=== PATIENT | male | born 1975 | race African-American/Black ===

== ENCOUNTER 2018-11-07 14:20 | Emergency (ER) | payer MEDICARE, MEDICAID ==
[~2018-11-07] VITALS: Ht 193 cm; Wt 108.9 kg
[~2018-11-07 14:20] MED LIST: FURO1TAB33 PO; NAP500T PO; NITR0.2D3 TD; [UNRECOGNIZED DRUG - CODE] SC
[2018-11-07] MEDS ORDERED: SODIUM CHLORIDE 0.9% 1,000 ML IV ONE (14:30)
[2018-11-07] MEDS ORDERED: MORPHINE SULFATE 4 MG/ML SYR/VIAL IV ONE (14:30)
[2018-11-07] MEDS ORDERED: ONDANSETRON HCL 4 MG/2 ML VIAL IV ONE (14:30)
[2018-11-07 15:18] LABS: Basophils # (auto) 0.1 uL; Basophils % (auto) 0.6 % (0.0-2.0); Eosinophils # (auto) 0.2 uL; Eosinophils % (auto) 2.1 % (0.0-7.0); Hematocrit 41.7 % (41.0-53.0); Hemoglobin 13.8 g/dL (13.5-17.5); Lymphocytes # (auto) 2.2 uL; Mean Corpuscular Hemoglobin 28.7 pg (28.0-32.0); Mean Corpuscular Volume 87.1 fL (80.0-100.0); Monocytes # (auto) 0.6 uL; Monocytes % (auto) 5.5 % (0.0-12.0); Neutrophils # (auto) 7.4 uL; Neutrophils % (auto) 70.8 % (37.0-80.0); Nucleated Red Blood Cells % 0.1 %; Platelet Count (auto) 198 10^3/uL (140-450); Red Blood Cells 4.79 10^6/uL (4.5-5.90); Red Cell Distribution Width 16.2 % (11.8-14.3); White Blood Cell 10.5 10^3/uL (4.4-10.8)
[2018-11-07 15:20] LABS: Urine Bacteria NONE SEEN /hpf (None Seen); Urine Blood Negative /uL (Negative); Urine Mucus FEW (None Seen); Urine Specific Gravity 1.025 (1.001-1.035); Urine WBC 1 /hpf (0 - 3)
[2018-11-07 15:30] LABS: Albumin 3.2 g/dL (3.4-5.0); Anion Gap 6 (5-15); Blood Urea Nitrogen 14 mg/dL (7-18); Calcium 8.5 mg/dL (8.5-10.1); Carbon Dioxide 25 mmol/L (21-32); Chloride 112 mmol/L (98-107); Glucose 83 mg/dL (74-106); Potassium 3.9 mmol/L (3.5-5.1); Sodium 143 mmol/L (136-145)
[2018-11-07 15:32] LABS: INR 1.01 (0.9-1.15); Partial Thromboplastin Time 20.8 sec (23.64-32.05)
[2018-11-07 15:33] LABS: Alanine Aminotransferase 23 U/L (16-61); Alkaline Phosphatase 127 U/L (45-117); Aspartate Aminotransferase 20 U/L (15-37); BUN/Creatinine Ratio 11.8; Bilirubin, Total 0.1 mg/dL (0.2-1.0); GFR African American 85 mL/min; GFR Non-African American 70 mL/min; Total Protein 7.7 g/dL (6.4-8.2)
[2018-11-07 16:46] VITALS: BP 129/79
== END 2018-11-07 17:02 | disposition home or self-care (01) ==
LOC: EDBD 14:20 → ER 14:32
DX: R07.89 Other chest pain (principal); E11.22 Type 2 diabetes mellitus with diabetic chronic kidney disease; I13.0 Hypertensive heart and chronic kidney disease with heart failure and stage 1 through stage 4 chronic kidney disease, or unspecified chronic kidney disease; N18.9 Chronic kidney disease, unspecified; I50.89 Other heart failure; R42 Dizziness and giddiness; E78.5 Hyperlipidemia, unspecified; F17.210 Nicotine dependence, cigarettes, uncomplicated; Z86.73 Personal history of transient ischemic attack (TIA), and cerebral infarction without residual deficits; Z88.0 Allergy status to penicillin; Z88.6 Allergy status to analgesic agent
CPT/HCPCS: 36415; 71045; 80053; 81001; 83880; 84484; 85025; 85610; 85730; 93005; 96361; 96374; 96375; 99284; J2270; J2405; J7030

== ENCOUNTER 2019-01-19 11:58 | Inpatient (IN) | payer MEDICARE, MEDICAID ==
[~2019-01-19] VITALS: Ht 193 cm; Wt 130.5 kg
[2019-01-19] MEDS ORDERED: PANTOPRAZOLE 40 MG TAB PO ONE (13:00)
[2019-01-19] MEDS ORDERED: MORPHINE SULF INJ 2 MG/ML SYRINGE 1ML IV ONE ×2 (13:30→16:45)
[2019-01-19] MEDS ORDERED: ONDANSETRON HCL 4 MG/2 ML VIAL IV ONE ×2 (13:30→16:45)
[2019-01-19 13:34] LABS: Basophils # (auto) 0 uL; Basophils % (auto) 0.2 % (0.0-2.0); Eosinophils # (auto) 0.2 uL; Eosinophils % (auto) 2.8 % (0.0-7.0); Hematocrit 40.5 % (41.0-53.0); Hemoglobin 13.2 g/dL (13.5-17.5); Lymphocytes # (auto) 0.7 uL; Lymphocytes % (auto) 10.7 % (10.0-50.0); Mean Corpuscular Hemoglobin 27.8 pg (28.0-32.0); Mean Corpuscular Hgb Conc. 32.6 g/dL (32.0-36.0); Mean Corpuscular Volume 85.2 fL (80.0-100.0); Monocytes # (auto) 0.5 uL; Monocytes % (auto) 7.9 % (0.0-12.0); Neutrophils # (auto) 4.9 uL; Neutrophils % (auto) 78.4 % (37.0-80.0); Nucleated Red Blood Cells % 0.1 %; Platelet Count (auto) 174 10^3/uL (140-450); Red Blood Cells 4.76 10^6/uL (4.5-5.90); Red Cell Distribution Width 14.3 % (11.8-14.3); White Blood Cell 6.3 10^3/uL (4.4-10.8)
[2019-01-19 13:47] LABS: INR 1.04 (0.9-1.15); Partial Thromboplastin Time 26.2 sec (23.64-32.05)
[2019-01-19 13:53] LABS: Albumin 3.3 g/dL (3.4-5.0); Anion Gap 4 (5-15); Blood Urea Nitrogen 16 mg/dL (7-18); Calcium 8.1 mg/dL (8.5-10.1); Carbon Dioxide 29 mmol/L (21-32); Chloride 107 mmol/L (98-107); Glucose 87 mg/dL (74-106); Sodium 140 mmol/L (136-145)
[2019-01-19 13:56] LABS: Alanine Aminotransferase 25 U/L (16-61); BUN/Creatinine Ratio 14.2; GFR African American 90 mL/min; GFR Non-African American 75 mL/min
[2019-01-19 14:10] LABS: Alkaline Phosphatase 109 U/L (45-117); Aspartate Aminotransferase 24 U/L (15-37); Bilirubin, Total 0.6 mg/dL (0.2-1.0); Total Protein 7.3 g/dL (6.4-8.2)
[2019-01-19] MEDS ORDERED: PHENYTOIN IV DILANTIN 1,000 MG in SODIUM CHL 0.9% 250 ML IV ONE (15:00)
[2019-01-19] MEDS ORDERED: LORazepam 2MG/ML-1ML VIAL IV ONE (17:45)
[2019-01-19] MEDS ORDERED: DEXTROSE (50%) 50ML SYRG IV PRN (17:45)
[2019-01-19] MEDS ORDERED: PROMETHAZINE HCL 25 MG/ML 1ML IV PRN (17:45)
[2019-01-19] MEDS ORDERED: traMADol HCL 50 MG TAB PO PRN (17:45)
[2019-01-19] MEDS ORDERED: TEMAZEPAM 15 MG CAP PO PRN (17:45)
[2019-01-19] MEDS ORDERED: MORPHINE SULF INJ 2 MG/ML SYRINGE 1ML IV PRN (17:45)
[2019-01-19] MEDS ORDERED: LORazepam 2MG/ML-1ML VIAL IV PRN (17:45)
[2019-01-19] MEDS: SODIUM CHLORIDE 0.9% 1,000 ML IV SCH (18:32)
[2019-01-19 18:44] LABS: CRP High Sensitivity 6.25 mg/dL (< 0.3)
[2019-01-19 19:17] LABS: Hematocrit 39.2 % (41.0-53.0); Hemoglobin 12.7 g/dL (13.5-17.5)
[2019-01-19 20:00] VITALS: BP 110/64
--- NOTE | 2019-01-19 20:00 | NUR ---
Telemetry admit from [facility] admitted to Telemetry unit after SBAR received. Patient oriented to Rebecca galdamez RN, unit, room, bed, and unit policies regarding patient care and visiting hours. Patient now on continuous telemetry monitoring, tele box # [id number] and telemetry reading on arrival to unit is SR 80. Patient weighed by bedscale and encouraged to call if they need something. All questions and concerns addressed, patient verbalized understanding.
--- NOTE | 2019-01-19 20:10 | NUR ---
REFUSING TO LET ME ASSESS HIS SKIN. PT STATED WHY ARE YOU ASKING TO MANY QUESTIONS. EXPLAINED TO THE PT THAT I WAS GETTING HIM ADMITTED ON THE FLOOR. PT VERBALIZED UNDERSTANDING. Addendum: 01/20/19 at 0328 by Rebecca Morgan RN PT REFUSING TO ANSWER QUESTIONS ABOUT HIS HOME MEDICATIONS. PT ALSO STATED THAT HE HAD NO EMERGENCY CONTACT.
[2019-01-19 21:00] VITALS: BP 137/82
[2019-01-19] MEDS: MORPHINE SULFATE 4 MG/ML SYR/VIAL IV PRN (21:09)
[2019-01-19] MEDS: PHENYTOIN SODIUM 100 MG CAP PO SCH (22:40)
[2019-01-19] MEDS: ATORVASTATIN 20 MG TAB PO SCH (22:40)
[2019-01-19] MEDS: PANTOPRAZOLE 40 MG TAB PO SCH (22:41)
[2019-01-19] MEDS: ACCU-CHEK COMFORT CURVE STRIP VI SCH (22:41)
[2019-01-19] MEDS: METOPROLOL TARTRATE 25 MG TAB PO SCH (22:41)
[2019-01-19] MEDS: InsuLIN REG 1unit/0.01ml Soln (100units/ml) SC SCH (22:41)
--- NOTE | 2019-01-20 00:32 | NUR ---
PT HAD PULLED HIS IV AND IT WAS ONLY HALF IN. PT REFUSING TO LET ME TAKE IT OUT. GOT THE VEIN FINDER AND TRIED TO SHOW IT TO HIM. PT STATED "I DONT WANT TO LOOK. YOU ALL NEED TO GET THE ULTRASOUND." TRIED TO EXPLAIN TO THE PT THIS IS A VEIN FINDER. PT SAID "GET YOUR REEL HOOKER." CALLED MANAGER INTERVENTIONAL HELEN AND TOLD HER.
[2019-01-20] MEDS: MORPHINE SULFATE 4 MG/ML SYR/VIAL IV PRN ×5 (01:00→21:44)
--- NOTE | 2019-01-20 01:00 | NUR ---
PT REFUSING TO HAVE BLOOD DRAWN.
--- NOTE | 2019-01-20 01:43 | NUR ---
PT CALLED INSURANCE SERVICE REPRESENTATIVE AND STATED HE WAS FEELING HE WAS GOING TO "GET A SEIZURE" GAVE THE PT ATIVAN. PT STATED THAT HE DID NOT GET HIS DILANTIN EARLIER. I EXPLAINED THAT I HAD GIVEN IT TO HIM EARLIER. PT STATED HE WANTED MY INSULATION APPLICATOR. TOLD CHARGE, DEREK DAVID. Addendum: 01/20/19 at 0148 by Rebecca Morgan RN PT WAS NOT SHAKING BUT KEPT SAYING HE WAS GOING TO HAVE A SEIZURE. HAD GIVEN ATIVAN. PT NEVER HAD ANY SHAKING TO HE NEVER LOSS AWARENESS WILL I WA IN THE ROOM.
[2019-01-20 04:30] VITALS: BP 124/71
[2019-01-20] MEDS: PHENYTOIN SODIUM 100 MG CAP PO SCH ×3 (05:07→21:48)
[2019-01-20] MEDS: InsuLIN REG 1unit/0.01ml Soln (100units/ml) SC SCH ×4 (05:11→22:00)
[2019-01-20] MEDS: ACCU-CHEK COMFORT CURVE STRIP VI SCH ×4 (05:11→22:23)
[2019-01-20] MEDS: SODIUM CHLORIDE 0.9% 1,000 ML IV SCH ×2 (07:02→20:22)
[2019-01-20 07:28] LABS: Hematocrit 38.4 % (41.0-53.0); Hemoglobin 12.8 g/dL (13.5-17.5)
--- NOTE | 2019-01-20 07:33 | NUR ---
Opening Shift Note Assumed care of patient, awake and alert. No S/S of distress/SOB or pain. For safety the bed is locked and in the lowest postion with 2 side rails up. Instructed on POC and to call for assist PRN, will continue to monitor for changes.
[2019-01-20 07:42] LABS: Cholesterol 189 mg/dL (< 200)
[2019-01-20 07:45] LABS: HDL Cholesterol 43 mg/dL (40-59); LDL Cholesterol 131 mg/dL (< 100); Triglycerides 84 mg/dL (< 150)
[2019-01-20 09:00] VITALS: BP 125/81
[2019-01-20] MEDS: PANTOPRAZOLE 40 MG TAB PO SCH ×2 (09:09→21:49)
[2019-01-20] MEDS: METOPROLOL TARTRATE 25 MG TAB PO SCH ×2 (09:10→22:00)
--- NOTE | 2019-01-20 09:30 | NUR ---
FALL PATIENT FOUND SITTING ON FLOOR IN CORNER OF BATHROOM. PATIENT STATES HE AMBULATED TO BATHROOM. ONCE IN BATHROOM, PATIENT STATES THAT HE WAS NOT ABLE TO GET OFF OF THE TOILET BECAUSE IT IS TOO LOW. STATES THAT HE ENDED UP ON THE FLOOR AND PULLED THE CALL LIGHT CORD. PATIENT DENIES ANY INJURIES. NO INJURIES NOTED UPON ASSESSMENT. PATIENT AMBULATED BACK TO THE BED. PATIENT PLACED IN BED, BED IN LOWEST POSITION, BED ALARM ON, CALL LIGHT IN REACH. COMMODE AT BEDSIDE, PATIENT STATES THAT HE WILL NOT USE THAT THING, IT'S TOO SMALL AND HE DOESN'T LIKE IT. RED SOCKS GIVEN TO PATIENT, PATIENT REFUSES TO WEAR THEM, STATES THEY ARE ITCHY. FALL BAND PLACED ON WRIST. PATIENT INSTRUCTED TO CALL FOR ASSISTANCE, PATIENT STATED THAT HE WILL TRY TO CALL BUT, IF HE WANTS TO GET UP THEN HE WILL. WILL CONTINUE TO MONITOR.
[2019-01-20] MEDS ORDERED: POTA-220 PO (10:10)
[2019-01-20] MEDS ORDERED: PHE100C PO (10:10)
[2019-01-20] MEDS ORDERED: FURO1TAB31 PO (10:10)
[2019-01-20] MEDS ORDERED: NIF10C PO (10:10)
--- NOTE | 2019-01-20 11:31 | NUR ---
DOCTOR RAHMAN AT BEDSIDE. ORDERS RECEIVED, WILL PLACE AND CARRY OUT.
[2019-01-20 11:57] LABS: Urine Bacteria NONE SEEN /hpf (None Seen); Urine Blood Negative /uL (Negative); Urine Hyaline Cast FEW /lpf (0 - 2); Urine Specific Gravity 1.023 (1.001-1.035); Urine WBC 18 /hpf (0 - 3)
[2019-01-20] MEDS ORDERED: HYOSCYAMINE SULF 0.125 MG ODT TAB PO PRN (12:00)
[2019-01-20 13:00] VITALS: BP 107/66
[2019-01-20 13:09] LABS: Alcohol, Urine < 3.0 mg/dL (0-5); Barbiturate Scree,Urine NEGATIVE (NEGATIVE); Benzodiazephine Screen, Urine NEGATIVE (NEGATIVE); Cannabinoid Screen, Urine NEGATIVE (NEGATIVE); Cocaine Screen, Urine NEGATIVE (NEGATIVE); Opiate Scree,Urine POSITIVE (NEGATIVE); Phencyclidine Screen, Urine NEGATIVE (NEGATIVE)
[2019-01-20 13:17] LABS: Amphetamine Screen, Urine NEGATIVE (NEGATIVE)
[2019-01-20] MEDS: APIXABAN 5 MG TAB PO SCH ×2 (13:50→21:47)
[2019-01-20 16:59] VITALS: BP 117/78
--- NOTE | 2019-01-20 19:00 | NUR ---
Report received from anna REED. POC reviewed.
--- NOTE | 2019-01-20 21:45 | NUR ---
pt very difficult pulling off tele monitor ,pulling off name band, incontinent of urine, reeducated pt on poc, pt non compliant with care, bed alarm intact call light within reach, medicated for pain as ordered, all questions and concerns addressed to pt
[2019-01-20] MEDS: QUEtiapine FUMARATE 100 MG TAB PO SCH (21:47)
[2019-01-20] MEDS: ATORVASTATIN 20 MG TAB PO SCH (21:49)
[2019-01-20 22:00] VITALS: BP 111/60
--- NOTE | 2019-01-20 23:06 | NUR ---
resting with eyes closed resp even and unlabored, bed alarm intact
[2019-01-21 05:30] VITALS: BP 121/58
[2019-01-21] MEDS: PHENYTOIN SODIUM 100 MG CAP PO SCH ×3 (05:36→19:57)
--- NOTE | 2019-01-21 05:42 | NUR ---
patient refused Dilantin. patient education on purpose of medication.
[2019-01-21] MEDS: InsuLIN REG 1unit/0.01ml Soln (100units/ml) SC SCH ×4 (05:49→20:02)
[2019-01-21] MEDS: ACCU-CHEK COMFORT CURVE STRIP VI SCH ×4 (05:51→20:02)
--- NOTE | 2019-01-21 06:51 | NUR ---
report given to am nurse poc reviewed
--- NOTE | 2019-01-21 07:32 | NUR ---
Opening Shift Note Assumed care of patient, pt asleep verbally awake and alert. No S/S of distress/SOB or pain. For safety the bed is locked and in the lowest position with 2 side rails up with bed alarm on. Instructed on POC and to call for assist PRN, will continue to monitor for changes.
[2019-01-21] MEDS: SODIUM CHLORIDE 0.9% 1,000 ML IV SCH ×2 (08:15→23:02)
[2019-01-21] MEDS: MORPHINE SULFATE 4 MG/ML SYR/VIAL IV PRN ×4 (08:15→20:49)
--- NOTE | 2019-01-21 08:31 | NUR ---
patient resting in bed communicated the want and need to go home so he can return to his schooling, he asked me to request this of md when rounding
[2019-01-21 09:00] VITALS: BP 137/84
--- NOTE | 2019-01-21 09:39 | NUR ---
pt refusing to wear tele monitor risk and benefits explained
[2019-01-21] MEDS: POTASSIUM CHL 20 Meq TABLET PO SCH (09:43)
[2019-01-21] MEDS: FUROSEMIDE 20 MG TAB PO SCH (09:43)
[2019-01-21] MEDS: PANTOPRAZOLE 40 MG TAB PO SCH ×2 (09:44→19:56)
[2019-01-21] MEDS: METOPROLOL TARTRATE 25 MG TAB PO SCH ×2 (09:44→19:57)
[2019-01-21] MEDS: APIXABAN 5 MG TAB PO SCH ×2 (09:44→19:55)
--- NOTE | 2019-01-21 09:49 | NUR ---
md hoang rounded on patient made pt aware of pending echo result possible discharge tomorrow, pt told md he may leave [facility] he doesn't want to stay, advised pt of risks and benefits of leaving pt stated he will think about it
[2019-01-21] MEDS ORDERED: APIXABAN 5 MG TAB PO SCH (10:00)
--- NOTE | 2019-01-21 10:23 | NUR ---
pt resting in bed appears to be sleeping
--- NOTE | 2019-01-21 10:32 | NUR ---
pt refusing iv fluids to be connected
--- NOTE | 2019-01-21 11:20 | NUR ---
pt deciding to stay till tomorrow, offered to reconnect tele box per pt "the doctor said aint nothing wrong with my heart so why monitor it" risks and benefits explained
[2019-01-21 12:55] VITALS: BP 132/81
[2019-01-21 17:00] VITALS: BP 123/73
--- NOTE | 2019-01-21 17:09 | NUR ---
ROUNDED ON PT HE STATED HE IS GOING TO LEAVE WHEN "MY SCIENTOLOGIST FRIENDS GET HERE" RISKS AND BENEFITS EXPLAINED
--- NOTE | 2019-01-21 19:30 | NUR ---
Opening Shift Note Assumed care of patient, awake and alert. No S/S of distress/SOB or pain. Insructed on POC and to callfor assist PRN, will continue to monitor for changes Q1hr and PRN. Fall, safety, and seizure precautions in place. Call light within reach.
[2019-01-21] MEDS: ATORVASTATIN 20 MG TAB PO SCH (19:55)
[2019-01-21] MEDS: QUEtiapine FUMARATE 100 MG TAB PO SCH (19:55)
--- NOTE | 2019-01-21 20:00 | NUR ---
IV LEAKING Upon flushing IV access to [facility], IV access was noted to be leaking. Offered to change dressing in an attempt to save IV access, patient refusing. Patient stated he's a hard stick and during dressing change, if IV access is lost, he would refuse to have another IV catheter inserted. Attempted to educate patient that MD has ordered IV fluids and with leaking IV access, patient may not receive total dose ordered for IV medications. Patient refusing education and refusing to have IV dressing changed or new IV access obtained. Will continue to monitor
--- NOTE | 2019-01-21 20:30 | NUR ---
REFUSE Entered room because I was informed by community pharmacist and secondary RN that patient is dressing himself in personal clothing and stating he's leaving. Entered room to find patient standing at bedside and dressing himself. Asked patient what was going on, patient stated "I'm leaving, you playing too much." Asked patient what he meant, patient upset because approximately 20 minutes earlier, patient was informed that PRN pain medication was not due. Patient stated "you lying, you said '30 minutes' 30 minutes ago, it's now 8:30, and you saying my pain medication still isn't due." Attempted to inform patient that last logged PRN pain medication was 1636 (see emar), and pain medication was ordered every 4hr, and won't be available to administer until 2036. Patient refused to verbalize understanding, stating "you lying, you playing too much, you're changing the times of my pain medicine." Offered to bring computer in room and show patient logged time of PRN pain medication, patient accepted, demanding "let me see it." Upon entering room with computer to show patient last documented time, patient stated "no, I don't want to see anything. I don't want you as a nurse, I want somebody else." Patient demanding to speak "with your quality assurance supervisor trim." Asked patient if he is requesting a different RN for the night, patient again stated "I don't want you, I want somebody else." medical translator made aware.
--- NOTE | 2019-01-21 20:47 | NUR ---
BLUEPRINT DEVELOPER butcherette at bedside
--- NOTE | 2019-01-21 21:20 | NUR ---
ENDORSED CARE Report given to Luna REED to continue care
--- NOTE | 2019-01-21 21:25 | NUR ---
RECEIVE IN BED IS ASLEEP
[2019-01-21 22:00] VITALS: BP 136/77
--- NOTE | 2019-01-22 01:00 | NUR ---
IS STILL ASLEEP FINISHING AND SHIPPING SUPERVISOR IS OFF
--- NOTE | 2019-01-22 04:00 | NUR ---
CONTINUE TO SLEEP IS BEING OBSERVED CLOSELY
[2019-01-22 05:00] VITALS: BP 145/76
[2019-01-22] MEDS: PHENYTOIN SODIUM 100 MG CAP PO SCH ×2 (05:35→14:00)
--- NOTE | 2019-01-22 05:35 | NUR ---
UP WALKING IN COLE REFUSE TELEMETRY STATES HE IS WAITING FOR HIS DOCTOR
[2019-01-22] MEDS: ACCU-CHEK COMFORT CURVE STRIP VI SCH ×2 (06:16→11:30)
[2019-01-22] MEDS: InsuLIN REG 1unit/0.01ml Soln (100units/ml) SC SCH ×2 (06:16→11:30)
--- NOTE | 2019-01-22 07:30 | NUR ---
Opening Shift Note Assumed care of patient, awake and alert. No S/S of distress/SOB or pain. Pt still refusing the need for telemetry. Bed is in the lowest position with 2x side rails up for safety. Call light is within reach and seizure precautions in place. Instructed on POC and to call for assist PRN, will continue to monitor for changes Q1hr and PRN.
[2019-01-22 08:00] VITALS: BP 138/79
[2019-01-22 08:59] VITALS: BP 98/41
--- NOTE | 2019-01-22 09:45 | NUR ---
IV removal to the R upper arm. IV DC'd with sterile technique, 22g catheter fully intact. Pressure dressing applied to site. Patient tolerated procedure well.
[2019-01-22] MEDS: POTASSIUM CHL 20 Meq TABLET PO SCH (09:47)
[2019-01-22] MEDS: FUROSEMIDE 20 MG TAB PO SCH (09:48)
[2019-01-22] MEDS: PANTOPRAZOLE 40 MG TAB PO SCH (09:48)
[2019-01-22] MEDS: APIXABAN 5 MG TAB PO SCH (09:49)
[2019-01-22] MEDS: METOPROLOL TARTRATE 25 MG TAB PO SCH ×2 (09:49→10:49)
[2019-01-22] MEDS: SODIUM CHLORIDE 0.9% 1,000 ML IV SCH (12:22)
--- NOTE | 2019-01-22 14:05 | NUR ---
Discharge instructions given as ordered. Encourage to follow up with PMD as instructed. All questions and concerns addressed. Patient verbalized understanding. Medication reconciliation form completed and copy given to patient. Telemetry unit returned to ICU. Patient ambulated off unit with all personal belongings. No distress noted at time of departure.
== END 2019-01-22 14:02 | disposition home or self-care (01) | DRG 206 ==
LOC: ER 11:58 → TELE 11:59 → TELE-WESTW 20:53
PROVIDERS: ADMIT Internal Medicine; ATTEND Internal Medicine
DX: M94.0 Chondrocostal junction syndrome [Tietze] (principal); I13.0 Hypertensive heart and chronic kidney disease with heart failure and stage 1 through stage 4 chronic kidney disease, or unspecified chronic kidney disease; I50.42 Chronic combined systolic (congestive) and diastolic (congestive) heart failure; K62.5 Hemorrhage of anus and rectum; K52.9 Noninfective gastroenteritis and colitis, unspecified; D57.1 Sickle-cell disease without crisis; N18.9 Chronic kidney disease, unspecified; E78.5 Hyperlipidemia, unspecified; F17.210 Nicotine dependence, cigarettes, uncomplicated; K44.9 Diaphragmatic hernia without obstruction or gangrene; I25.10 Atherosclerotic heart disease of native coronary artery without angina pectoris; F20.9 Schizophrenia, unspecified; E11.22 Type 2 diabetes mellitus with diabetic chronic kidney disease; E66.9 Obesity, unspecified; G40.909 Epilepsy, unspecified, not intractable, without status epilepticus; I25.2 Old myocardial infarction; Z82.49 Family history of ischemic heart disease and other diseases of the circulatory system; Z82.5 Family history of asthma and other chronic lower respiratory diseases; Z83.3 Family history of diabetes mellitus; Z86.711 Personal history of pulmonary embolism; Z86.73 Personal history of transient ischemic attack (TIA), and cerebral infarction without residual deficits; Z95.828 Presence of other vascular implants and grafts; Z86.718 Personal history of other venous thrombosis and embolism; Z88.6 Allergy status to analgesic agent; Z88.1 Allergy status to other antibiotic agents; Z88.8 Allergy status to other drugs, medicaments and biological substances
CPT/HCPCS: 36415; 71045; 74176; 80053; 80061; 80185; 80307; 81001; 82150; 82270; 82550; 82962; 83036; 83690; 83735; 84484; 85014; 85018; 85025; 85045; 85379; 85610; 85652; 85730; 86141; 87045; 87081; 87427; 93005; 93306; 94761; 96361; 96365; 96375; 96376; G0378; J2405

== ENCOUNTER 2019-01-30 12:13 | Emergency (ER) | payer MEDICARE, MEDICAID ==
[~2019-01-30 12:13] MED LIST changes: +FURO1TAB31 PO; +NIF10C PO; +PHE100C PO; +POTA-220 PO
[2019-01-30] MEDS ORDERED: SODIUM CHLORIDE 0.9% 500 ML IV ONE (12:24)
== END 2019-01-30 13:46 | disposition left against medical advice (07) ==
LOC: ER 12:13 → EDBD 12:13 → ER 13:46
DX: R55 Syncope and collapse (principal); R51 Headache; M54.2 Cervicalgia; E11.22 Type 2 diabetes mellitus with diabetic chronic kidney disease; I13.0 Hypertensive heart and chronic kidney disease with heart failure and stage 1 through stage 4 chronic kidney disease, or unspecified chronic kidney disease; N18.9 Chronic kidney disease, unspecified; I50.9 Heart failure, unspecified; E78.5 Hyperlipidemia, unspecified; I25.2 Old myocardial infarction; F17.210 Nicotine dependence, cigarettes, uncomplicated; Z86.73 Personal history of transient ischemic attack (TIA), and cerebral infarction without residual deficits; Z79.899 Other long term (current) drug therapy
CPT/HCPCS: 93005

== ENCOUNTER 2019-03-27 22:09 | Emergency (ER) | payer BC, MEDICAID ==
[~2019-03-27] VITALS: Ht 193 cm; Wt 132.4 kg
[2019-03-27 23:30] LABS: Basophils # (auto) 0.1 uL; Basophils % (auto) 0.7 % (0.0-2.0); Eosinophils # (auto) 0.2 uL; Eosinophils % (auto) 2.2 % (0.0-7.0); Hematocrit 39.8 % (41.0-53.0); Hemoglobin 12.9 g/dL (13.5-17.5); Lymphocytes # (auto) 2.4 uL; Lymphocytes % (auto) 28.3 % (10.0-50.0); Mean Corpuscular Hemoglobin 27.1 pg (28.0-32.0); Mean Corpuscular Hgb Conc. 32.4 g/dL (32.0-36.0); Mean Corpuscular Volume 83.6 fL (80.0-100.0); Monocytes # (auto) 0.7 uL; Monocytes % (auto) 8.6 % (0.0-12.0); Neutrophils # (auto) 5.1 uL; Neutrophils % (auto) 60.2 % (37.0-80.0); Platelet Count (auto) 165 10^3/uL (140-450); Red Blood Cells 4.76 10^6/uL (4.5-5.90); Red Cell Distribution Width 15.3 % (11.8-14.3); White Blood Cell 8.4 10^3/uL (4.4-10.8)
[2019-03-27 23:44] LABS: Alanine Aminotransferase 39 U/L (16-61); Albumin 3.2 g/dL (3.4-5.0); Anion Gap 5 (5-15); Aspartate Aminotransferase 25 U/L (15-37); BUN/Creatinine Ratio 18.3; Blood Urea Nitrogen 17 mg/dL (7-18); Calcium 8.4 mg/dL (8.5-10.1); Carbon Dioxide 27 mmol/L (21-32); Chloride 110 mmol/L (98-107); GFR African American 112 mL/min; GFR Non-African American 93 mL/min; Glucose 90 mg/dL (74-106); Magnesium 2.1 mg/dL (1.6-2.6); Potassium 4.1 mmol/L (3.5-5.1); Sodium 142 mmol/L (136-145)
[2019-03-27 23:50] LABS: Alkaline Phosphatase 126 U/L (45-117); Bilirubin, Total 0.1 mg/dL (0.2-1.0); Total Protein 7.4 g/dL (6.4-8.2)
[2019-03-28 00:41] LABS: Urine Bacteria FEW /hpf (None Seen); Urine Blood Negative /uL (Negative); Urine Mucus FEW (None Seen); Urine Specific Gravity 1.025 (1.001-1.035); Urine WBC 1 /hpf (0 - 3)
[2019-03-28 01:02] LABS: Alcohol, Urine < 3.0 mg/dL (0-5); Amphetamine Screen, Urine NEGATIVE (NEGATIVE); Barbiturate Scree,Urine NEGATIVE (NEGATIVE); Benzodiazephine Screen, Urine NEGATIVE (NEGATIVE); Cannabinoid Screen, Urine NEGATIVE (NEGATIVE); Cocaine Screen, Urine NEGATIVE (NEGATIVE); Opiate Scree,Urine NEGATIVE (NEGATIVE); Phencyclidine Screen, Urine NEGATIVE (NEGATIVE)
[2019-03-28 02:16] LABS: INR 1.13 (0.9-1.15); Partial Thromboplastin Time 24.8 sec (23.64-32.05)
[2019-03-28] MEDS ORDERED: ENOXAPARIN SOD 150 MG/1 ML SYRINGE SC ONE ×2 (03:00→03:42)
[2019-03-28 05:24] VITALS: BP 150/107
== END 2019-03-28 06:21 | disposition home or self-care (01) ==
LOC: ER 22:10
DX: K29.70 Gastritis, unspecified, without bleeding (principal); I82.401 Acute embolism and thrombosis of unspecified deep veins of right lower extremity; I12.9 Hypertensive chronic kidney disease with stage 1 through stage 4 chronic kidney disease, or unspecified chronic kidney disease; N18.9 Chronic kidney disease, unspecified; I50.9 Heart failure, unspecified; I25.10 Atherosclerotic heart disease of native coronary artery without angina pectoris; E11.9 Type 2 diabetes mellitus without complications; E78.5 Hyperlipidemia, unspecified; I10 Essential (primary) hypertension; I25.2 Old myocardial infarction; Z88.6 Allergy status to analgesic agent; Z88.0 Allergy status to penicillin; Z88.8 Allergy status to other drugs, medicaments and biological substances
CPT/HCPCS: 36415; 71045; 74176; 80053; 80307; 81001; 82962; 83735; 83880; 84484; 85025; 85610; 85730; 93005; 93971; 96372; 99284; J1650

== ENCOUNTER → 2022-06-30 | Emergency (ER) | payer MEDICARE, MEDICAID ==
[~2022-06-30] VITALS: Ht 193 cm; Wt 120.0 kg
[~2022-06-30] MED LIST changes: -NITR0.2D3 TD; +NITR0.2D5 TD
[2022-06-30 13:17] VITALS: BP 125/99
== END | disposition left against medical advice (07) ==
LOC: ER 13:12
DX: R07.9 Chest pain, unspecified (principal); Z53.21 Procedure and treatment not carried out due to patient leaving prior to being seen by health care provider
CPT/HCPCS: 82962; 93005

== ENCOUNTER 2022-11-30 01:01 | Inpatient (IN) | payer MEDICARE, MEDICAID ==
[2022-11-30] VITALS (7 sets, daily range): BP systolic 126–152; BP diastolic 78–92; PULSE 70–81; RESP 15–22; TEMP 97–98.1; O2SAT 95–98
[~2022-11-30] VITALS: Ht 193 cm; Wt 123.6 kg
[~2022-11-30 01:01] MED LIST changes: -PHE100C PO; +PHEN1CAP60 PO
[2022-11-30 01:46] LABS: Basophils # (auto) 0 10 ^3/uL (0-0.2); Basophils % (auto) 0.6 % (0.0-2.0); Eosinophils # (auto) 0.3 10 ^3/uL (0-0.8); Eosinophils % (auto) 5.5 % (0.0-7.0); Hematocrit 35.7 % (41.0-53.0); Hemoglobin 11.6 g/dL (13.5-17.5); Lymphocytes # (auto) 1.9 10 ^3/uL (0.4-5.4); Lymphocytes % (auto) 29.5 % (10.0-50.0); Mean Corpuscular Hemoglobin 27.4 pg (28.0-32.0); Mean Corpuscular Hgb Conc. 32.6 g/dL (32.0-36.0); Monocytes # (auto) 0.8 10 ^3/uL (0-1.3); Monocytes % (auto) 13.3 % (0.0-12.0); Neutrophils # (auto) 3.2 10 ^3/uL (1.6-8.6); Neutrophils % (auto) 51.1 % (37.0-80.0); Nucleated Red Blood Cells % 0.1 %; Red Blood Cells 4.25 10^6/uL (4.5-5.90); Red Cell Distribution Width 17.1 % (11.8-14.3); White Blood Cell 6.3 10^3/uL (4.4-10.8)
[2022-11-30 01:52] LABS: INR 1.04 (0.9-1.15); Partial Thromboplastin Time 28.3 SEC (24.5-34.5); Prothrombin Time 10.9 sec (9.3-11.8)
[2022-11-30 01:58] LABS: Alanine Aminotransferase 14 U/L (7-40); Albumin 4.1 g/dL (3.2-4.8); Alkaline Phosphatase 112 U/L (46-116); Anion Gap 6 (5-15); Aspartate Aminotransferase 17 U/L (13-40); BUN/Creatinine Ratio 21.1 (10.0-20.0); Bilirubin, Total 0.2 mg/dL (0.2-1.0); Blood Urea Nitrogen 27 mg/dL (9-23); Calcium 8.6 mg/dL (8.7-10.4); Carbon Dioxide 25 mmol/L (20-30); Chloride 110 mmol/L (98-107); Glucose 95 mg/dL (74-106); Magnesium 2.3 mg/dL (1.6-2.6); Potassium 4.5 mmol/L (3.5-5.1); Sodium 141 mmol/L (136-145); Total Protein 6.9 g/dL (5.7-8.2)
[2022-11-30] MEDS ORDERED: FUROSEMIDE 20 MG/2 ML VIAL IV ONE (06:30)
[2022-11-30] MEDS ORDERED: HYDROcodone-ACET 5/325MG TAB PO ONE (06:30)
[2022-11-30] MEDS ORDERED: MORPHINE SULFATE INJ 2 MG/ml SYRG IV PRN (09:15)
[2022-11-30] MEDS ORDERED: HYDROcodone-ACET 5/325MG TAB PO PRN (09:15)
[2022-11-30 09:23] LABS: Urine Bacteria FEW /hpf (None Seen); Urine Blood Negative /uL (Negative); Urine Clarity Clear (Clear); Urine Protein, UAD Negative (Negative); Urine Specific Gravity 1.023 (1.001-1.035); Urine Urobilinogen Normal (Negative); Urine WBC 1 /hpf (0 - 3); Urine pH 5.5 (5.0-8.0)
[2022-11-30 09:26] LABS: Urine Color STRAW (Yellow)
[2022-11-30] MEDS ORDERED: diphenhdrAMINE HCL 50 MG/1 ML VL IV ONE (09:30)
[2022-11-30] MEDS ORDERED: IOHEXOL 350 MG/ML 100ML IJ ONE (09:51)
[2022-11-30 09:59] LABS: Triglycerides 85 mg/dL (< 150)
[2022-11-30 10:00] LABS: LDL Cholesterol 150 mg/dL (< 100)
[2022-11-30] MEDS ORDERED: HEPARIN DRIP/D5W 100UNITS/ML 250 ML IV SCH (10:00)
[2022-11-30] MEDS ORDERED: ENOXAPARIN SOD 40 MG/0.4 ML SYRINGE SC SCH (10:00)
[2022-11-30] MEDS ORDERED: methylPREDNISolone SOD SUCC 40 MG/ML VL IM ONE (10:00)
[2022-11-30] MEDS ORDERED: HEPARIN SODIUM (PORCINE) 5000 UNITS/ML 1ML VIAL IV ONE (10:00)
[2022-11-30 10:01] LABS: Cholesterol 221 mg/dL (< 200); HDL Cholesterol 55 mg/dL (40-59)
[2022-11-30 10:01] LABS: Amphetamine Screen, Urine Neg (NEGATIVE)
[2022-11-30] MEDS: MORPHINE SULFATE INJ 2 MG/ml SYRG IV PRN ×4 (10:02→22:51)
[2022-11-30 10:03] LABS: Barbiturate Scree,Urine Neg (NEGATIVE); Benzodiazephine Screen, Urine Neg (NEGATIVE); Cannabinoid Screen, Urine Neg (NEGATIVE); Cocaine Screen, Urine Neg (NEGATIVE); Opiate Scree,Urine Neg (NEGATIVE); Phencyclidine Screen, Urine Neg (NEGATIVE)
[2022-11-30 10:06] LABS: Basophils # (auto) 0.1 10 ^3/uL (0-0.2); Basophils % (auto) 0.9 % (0.0-2.0); Eosinophils # (auto) 0.4 10 ^3/uL (0-0.8); Eosinophils % (auto) 6.4 % (0.0-7.0); Hematocrit 37.6 % (41.0-53.0); Hemoglobin 11.9 g/dL (13.5-17.5); Lymphocytes # (auto) 1.7 10 ^3/uL (0.4-5.4); Lymphocytes % (auto) 30.3 % (10.0-50.0); Mean Corpuscular Hemoglobin 27.4 pg (28.0-32.0); Mean Corpuscular Hgb Conc. 31.7 g/dL (32.0-36.0); Mean Corpuscular Volume 86.3 fL (80.0-100.0); Monocytes # (auto) 0.5 10 ^3/uL (0-1.3); Monocytes % (auto) 9.4 % (0.0-12.0); Nucleated Red Blood Cells % 0.2 %; Red Blood Cells 4.36 10^6/uL (4.5-5.90); Red Cell Distribution Width 17.2 % (11.8-14.3); White Blood Cell 5.6 10^3/uL (4.4-10.8)
[2022-11-30] MEDS ORDERED: ATORVASTATIN 20 MG TAB PO ONE (10:30)
[2022-11-30 11:15] LABS: INR 1.06 (0.9-1.15); Partial Thromboplastin Time 24.8 SEC (24.5-34.5); Prothrombin Time 11.1 sec (9.3-11.8)
[2022-11-30] MEDS ORDERED: ACETAMINOPHEN 500 MG TAB PO PRN (16:45)
[2022-11-30] MEDS ORDERED: DEXTROSE (50%) 50ML SYRG IV PRN (16:45)
[2022-11-30] MEDS ORDERED: HYDROCORTISONE ACET 25 MG RECTAL SUPP PR ONE (16:45)
[2022-11-30] MEDS ORDERED: NICOTINE 21MG/24 HR TOPICAL PATCH TD ONE (16:45)
[2022-11-30] MEDS ORDERED: LACTULOSE 20Gm/30ML SOLN PO ONE (16:45)
[2022-11-30] MEDS ORDERED: PANTOPRAZOLE 40 MG/10 ML VIAL INJ IV ONE (16:45)
[2022-11-30] MEDS ORDERED: DOCUSATE SOD 100 MG CAP PO PRN (16:45)
[2022-11-30] MEDS: InsuLIN REG 1unit/0.01ml Soln (100units/ml) SC SCH ×2 (18:00→22:53)
[2022-11-30] MEDS: ACCU-CHEK COMFORT CURVE STRIP VI SCH ×2 (18:03→22:53)
[2022-11-30] MEDS: ALBUTEROL SULF 2.5 MG/0.5ML(0.5%) NEB SOLN NEB SCH ×3 (18:21→23:10)
[2022-11-30] MEDS: IPRATROPIUM BROM 0.5 MG/2.5ML INH SOL NEB SCH ×3 (18:21→23:10)
[2022-11-30] MEDS ORDERED: ENOXAPARIN SOD 120 MG/0.8 ML SYRINGE SC SCH (22:00)
[2022-11-30] MEDS: LACTULOSE 20Gm/30ML SOLN PO SCH (22:43)
[2022-11-30] MEDS: HYDROCORTISONE ACET 25 MG RECTAL SUPP PR SCH (22:44)
[2022-11-30] MEDS: PHENYTOIN SODIUM 100 MG CAP PO SCH (22:44)
[2022-12-01] VITALS (17 sets, daily range): BP systolic 117–143; BP diastolic 80–98; PULSE 67–90; RESP 16–22; TEMP 98–98.9; O2SAT 96–100
[2022-12-01] MEDS: MORPHINE SULFATE INJ 2 MG/ml SYRG IV PRN ×4 (04:50→19:52)
[2022-12-01] MEDS: InsuLIN REG 1unit/0.01ml Soln (100units/ml) SC SCH ×4 (04:52→21:17)
[2022-12-01] MEDS: ACCU-CHEK COMFORT CURVE STRIP VI SCH ×4 (04:52→21:17)
[2022-12-01] MEDS: IPRATROPIUM BROM 0.5 MG/2.5ML INH SOL NEB SCH ×5 (05:27→22:58)
[2022-12-01] MEDS: ALBUTEROL SULF 2.5 MG/0.5ML(0.5%) NEB SOLN NEB SCH ×6 (05:27→22:59)
[2022-12-01] MEDS: PANTOPRAZOLE 40 MG/10 ML VIAL INJ IV SCH (09:41)
[2022-12-01] MEDS: LACTULOSE 20Gm/30ML SOLN PO SCH ×2 (09:41→19:47)
[2022-12-01] MEDS: HYDROCORTISONE ACET 25 MG RECTAL SUPP PR SCH ×2 (09:42→19:50)
[2022-12-01] MEDS: NICOTINE 21MG/24 HR TOPICAL PATCH TD SCH (09:42)
[2022-12-01 10:00] LABS: Basophils # (auto) 0 10 ^3/uL (0-0.2); Eosinophils # (auto) 0.3 10 ^3/uL (0-0.8); Hemoglobin 10.5 g/dL (13.5-17.5); Monocytes # (auto) 0.5 10 ^3/uL (0-1.3); Nucleated Red Blood Cells % 0.1 %; White Blood Cell 4.6 10^3/uL (4.4-10.8)
[2022-12-01 10:02] LABS: Basophils % (auto) 0.4 % (0.0-2.0); Eosinophils % (auto) 7.4 % (0.0-7.0); Hematocrit 32.3 % (41.0-53.0); Lymphocytes # (auto) 1.3 10 ^3/uL (0.4-5.4); Lymphocytes % (auto) 29.2 % (10.0-50.0); Mean Corpuscular Hemoglobin 27.2 pg (28.0-32.0); Mean Corpuscular Hgb Conc. 32.5 g/dL (32.0-36.0); Mean Corpuscular Volume 83.7 fL (80.0-100.0); Monocytes % (auto) 11.3 % (0.0-12.0); Neutrophils # (auto) 2.4 10 ^3/uL (1.6-8.6); Neutrophils % (auto) 51.7 % (37.0-80.0); Red Blood Cells 3.86 10^6/uL (4.5-5.90); Red Cell Distribution Width 16.9 % (11.8-14.3)
[2022-12-01 10:18] LABS: Alanine Aminotransferase 11 U/L (7-40); Albumin 3.6 g/dL (3.2-4.8); Alkaline Phosphatase 84 U/L (46-116); Aspartate Aminotransferase 14 U/L (13-40); BUN/Creatinine Ratio 16.7 (10.0-20.0); Blood Urea Nitrogen 22 mg/dL (9-23); Calcium 8.6 mg/dL (8.5-10.1); Carbon Dioxide 27 mmol/L (20-30); Glucose 103 mg/dL (74-106)
[2022-12-01 10:19] LABS: Bilirubin, Total 0.2 mg/dL (0.2-1.0); Total Protein 6.2 g/dL (5.7-8.2)
[2022-12-01 10:58] LABS: Anion Gap 4 (5-15); Chloride 110 mmol/L (98-107); Potassium 4.5 mmol/L (3.5-5.1); Sodium 141 mmol/L (136-145)
[2022-12-01] MEDS ORDERED: SODIUM CHLORIDE 0.9% 1,000 ML IV SCH (11:30)
[2022-12-01] MEDS: GABAPENTIN 100 MG CAP PO SCH ×2 (12:13→19:49)
[2022-12-01] MEDS: LORazepam 2MG/ML-1ML VIAL IV PRN ×2 (12:14→17:58)
[2022-12-01] MEDS ORDERED: hydrALAZINE HCL 20 MG/ML VL IV PRN (16:45)
[2022-12-01] MEDS: PHENYTOIN SODIUM 100 MG CAP PO SCH (19:48)
[2022-12-01] MEDS: ATORVASTATIN 20 MG TAB PO SCH (19:48)
[2022-12-01] MEDS: METOPROLOL TARTRATE 25 MG TAB PO SCH (19:49)
[2022-12-01] MEDS: diphenhdrAMINE HCL 25 MG CAP PO PRN (19:50)
[2022-12-01] MEDS ORDERED: QUEtiapine FUMARATE 25 MG TAB PO ONE (21:00)
[2022-12-01] MEDS ORDERED: traZODone HCL 50 MG TAB PO ONE (21:00)
[2022-12-02] VITALS (12 sets, daily range): BP systolic 118–158; BP diastolic 77–92; PULSE 64–98; RESP 18–22; TEMP 97.6–98.7; O2SAT 95–100
[2022-12-02] MEDS: InsuLIN REG 1unit/0.01ml Soln (100units/ml) SC SCH ×3 (06:00→18:28)
[2022-12-02] MEDS: ACCU-CHEK COMFORT CURVE STRIP VI SCH ×3 (06:07→18:28)
[2022-12-02] MEDS: IPRATROPIUM BROM 0.5 MG/2.5ML INH SOL NEB SCH ×5 (06:35→22:00)
[2022-12-02] MEDS: ALBUTEROL SULF 2.5 MG/0.5ML(0.5%) NEB SOLN NEB SCH ×5 (06:35→22:00)
[2022-12-02] MEDS: MORPHINE SULFATE INJ 2 MG/ml SYRG IV PRN ×4 (06:50→19:32)
[2022-12-02] MEDS: NICOTINE 21MG/24 HR TOPICAL PATCH TD SCH ×2 (10:00→10:47)
[2022-12-02 10:15] LABS: Basophils # (auto) 0 10 ^3/uL (0-0.2); Basophils % (auto) 0.6 % (0.0-2.0); Eosinophils # (auto) 0.4 10 ^3/uL (0-0.8); Eosinophils % (auto) 6.2 % (0.0-7.0); Hematocrit 35.3 % (41.0-53.0); Hemoglobin 11.2 g/dL (13.5-17.5); Lymphocytes # (auto) 1.4 10 ^3/uL (0.4-5.4); Lymphocytes % (auto) 24.7 % (10.0-50.0); Mean Corpuscular Hemoglobin 27.5 pg (28.0-32.0); Mean Corpuscular Hgb Conc. 31.9 g/dL (32.0-36.0); Mean Corpuscular Volume 86.3 fL (80.0-100.0); Monocytes # (auto) 0.5 10 ^3/uL (0-1.3); Monocytes % (auto) 9.6 % (0.0-12.0); Neutrophils # (auto) 3.4 10 ^3/uL (1.6-8.6); Neutrophils % (auto) 58.9 % (37.0-80.0); Nucleated Red Blood Cells % 0.1 %; Red Blood Cells 4.09 10^6/uL (4.5-5.90); Red Cell Distribution Width 17.1 % (11.8-14.3); White Blood Cell 5.7 10^3/uL (4.4-10.8)
[2022-12-02] MEDS: GABAPENTIN 100 MG CAP PO SCH ×2 (10:17→21:51)
[2022-12-02] MEDS: PANTOPRAZOLE 40 MG/10 ML VIAL INJ IV SCH (10:17)
[2022-12-02] MEDS: METOPROLOL TARTRATE 25 MG TAB PO SCH ×2 (10:18→21:53)
[2022-12-02] MEDS: diphenhdrAMINE HCL 25 MG CAP PO PRN (10:20)
[2022-12-02] MEDS: LACTULOSE 20Gm/30ML SOLN PO SCH ×2 (10:20→21:53)
[2022-12-02] MEDS: HYDROCORTISONE ACET 25 MG RECTAL SUPP PR SCH ×2 (10:21→21:54)
[2022-12-02 12:11] LABS: Hepatitis B Surface Antibody Negative (Negative)
[2022-12-02 12:43] LABS: Hepatitis C Antibody Negative (Negative)
[2022-12-02] MEDS ORDERED: POTASSIUM CHL 10 Meq TABLET PO ONE (12:45)
[2022-12-02] MEDS ORDERED: FUROSEMIDE 40 MG TAB PO ONE (12:45)
[2022-12-02] MEDS ORDERED: diphenhdrAMINE HCL 50 MG/1 ML VL IV PRN (12:45)
[2022-12-02] MEDS ORDERED: methylPREDNISolone SOD SUCC 40 MG/ML VL IV ONE (12:45)
[2022-12-02 12:46] LABS: Anion Gap 5 (5-15); Carbon Dioxide 25 mmol/L (20-30); Chloride 111 mmol/L (98-107); Potassium 4.8 mmol/L (3.5-5.1); Sodium 141 mmol/L (136-145)
[2022-12-02 12:52] LABS: BUN/Creatinine Ratio 15.6 (10.0-20.0); Blood Urea Nitrogen 20 mg/dL (9-23); Glucose 111 mg/dL (74-106)
[2022-12-02] MEDS ORDERED: POLYETHYLENE GLYCOL 17 GM PWDR PO ONE (21:15)
[2022-12-02] MEDS ORDERED: GOLYTELY 4L KIT PO ONE (21:15)
[2022-12-02] MEDS: PHENYTOIN SODIUM 100 MG CAP PO SCH (21:50)
[2022-12-02] MEDS: QUEtiapine FUMARATE 100 MG TAB PO SCH (21:51)
[2022-12-02] MEDS: ATORVASTATIN 20 MG TAB PO SCH (21:52)
[2022-12-02] MEDS: methylPREDNISolone SOD SUCC 40 MG/ML VL IV SCH (21:54)
[2022-12-03] VITALS (16 sets, daily range): BP systolic 138–169; BP diastolic 86–100; PULSE 63–99; RESP 18–20; TEMP 97.4–98.5; O2SAT 96–100
[2022-12-03] MEDS: MORPHINE SULFATE INJ 2 MG/ml SYRG IV PRN ×5 (01:15→22:38)
[2022-12-03] MEDS: InsuLIN REG 1unit/0.01ml Soln (100units/ml) SC SCH ×5 (05:16→23:59)
[2022-12-03] MEDS: ACCU-CHEK COMFORT CURVE STRIP VI SCH ×5 (05:16→23:56)
[2022-12-03] MEDS ORDERED: GOLYTELY 4L KIT PO ONE (06:00)
[2022-12-03] MEDS: ALBUTEROL SULF 2.5 MG/0.5ML(0.5%) NEB SOLN NEB SCH ×5 (06:29→22:13)
[2022-12-03] MEDS: IPRATROPIUM BROM 0.5 MG/2.5ML INH SOL NEB SCH ×5 (06:29→22:13)
[2022-12-03] MEDS: LACTULOSE 20Gm/30ML SOLN PO SCH ×2 (09:27→21:44)
[2022-12-03] MEDS: methylPREDNISolone SOD SUCC 40 MG/ML VL IV SCH ×2 (09:27→21:44)
[2022-12-03] MEDS: PANTOPRAZOLE 40 MG/10 ML VIAL INJ IV SCH (09:27)
[2022-12-03] MEDS: GABAPENTIN 100 MG CAP PO SCH ×2 (09:27→21:46)
[2022-12-03] MEDS: POTASSIUM CHL 10 Meq TABLET PO SCH (09:28)
[2022-12-03] MEDS: FUROSEMIDE 40 MG TAB PO SCH (09:28)
[2022-12-03] MEDS: METOPROLOL TARTRATE 25 MG TAB PO SCH ×2 (09:29→21:46)
[2022-12-03] MEDS: HYDROCORTISONE ACET 25 MG RECTAL SUPP PR SCH ×2 (09:30→21:47)
[2022-12-03] MEDS: POLYETHYLENE GLYCOL 17 GM PWDR PO SCH (09:30)
[2022-12-03] MEDS: NICOTINE 21MG/24 HR TOPICAL PATCH TD SCH (09:31)
[2022-12-03] MEDS ORDERED: MIDAZOLAM HCL 2MG/2ML 2ml VIAL (1mg/ml) ONE (15:03)
[2022-12-03] MEDS ORDERED: PROPOFOL 10 MG/ML 20 ML IV ONE (15:03)
[2022-12-03] MEDS ORDERED: fentaNYL CITRATE 100 MCG/2 ML VL ONE (15:03)
[2022-12-03] MEDS ORDERED: HYDROmorphone HCL 2 MG/ML VL/or syr IV PRN (15:45)
[2022-12-03] MEDS ORDERED: diphenhdrAMINE HCL 50 MG/1 ML VL IM ONE (15:45)
[2022-12-03] MEDS ORDERED: ACCU-CHEK COMFORT CURVE STRIP VI ONE (15:45)
[2022-12-03] MEDS: ATORVASTATIN 20 MG TAB PO SCH (21:44)
[2022-12-03] MEDS: PHENYTOIN SODIUM 100 MG CAP PO SCH (21:46)
[2022-12-03] MEDS: QUEtiapine FUMARATE 100 MG TAB PO SCH (21:57)
[2022-12-03 23:00] LABS: Basophils # (auto) 0 10 ^3/uL (0-0.2); Basophils % (auto) 0.4 % (0.0-2.0); Eosinophils # (auto) 0.1 10 ^3/uL (0-0.8); Eosinophils % (auto) 1.4 % (0.0-7.0); Lymphocytes # (auto) 1.9 10 ^3/uL (0.4-5.4); Lymphocytes % (auto) 25.3 % (10.0-50.0); Mean Corpuscular Hemoglobin 27.2 pg (28.0-32.0); Mean Corpuscular Hgb Conc. 32.5 g/dL (32.0-36.0); Mean Corpuscular Volume 83.7 fL (80.0-100.0); Monocytes # (auto) 0.6 10 ^3/uL (0-1.3); Monocytes % (auto) 8.3 % (0.0-12.0); Neutrophils # (auto) 4.8 10 ^3/uL (1.6-8.6); Neutrophils % (auto) 64.6 % (37.0-80.0); Nucleated Red Blood Cells % 0.1 %; Red Blood Cells 4.06 10^6/uL (4.5-5.90); Red Cell Distribution Width 17.2 % (11.8-14.3); White Blood Cell 7.4 10^3/uL (4.4-10.8)
[2022-12-03 23:17] LABS: Alanine Aminotransferase 14 U/L (7-40); Albumin 3.7 g/dL (3.2-4.8); Alkaline Phosphatase 93 U/L (46-116); Anion Gap 6 (5-15); Aspartate Aminotransferase 10 U/L (13-40); BUN/Creatinine Ratio 21.4 (10.0-20.0); Bilirubin, Total < 0.2 mg/dL (0.2-1.0); Blood Urea Nitrogen 27 mg/dL (9-23); Calcium 8.6 mg/dL (8.7-10.4); Carbon Dioxide 26 mmol/L (20-30); Chloride 109 mmol/L (98-107); Glucose 130 mg/dL (74-106); Potassium 4.1 mmol/L (3.5-5.1); Sodium 141 mmol/L (136-145)
[2022-12-03 23:18] LABS: Total Protein 6.4 g/dL (5.7-8.2)
[2022-12-04] VITALS (16 sets, daily range): BP systolic 129–146; BP diastolic 76–105; PULSE 76–114; RESP 16–20; TEMP 97.8–98.8; O2SAT 96–100
[2022-12-04] MEDS: ACCU-CHEK COMFORT CURVE STRIP VI SCH ×3 (05:31→17:53)
[2022-12-04] MEDS: InsuLIN REG 1unit/0.01ml Soln (100units/ml) SC SCH ×3 (05:34→17:53)
[2022-12-04] MEDS: MORPHINE SULFATE INJ 2 MG/ml SYRG IV PRN ×4 (05:39→20:10)
[2022-12-04] MEDS: ALBUTEROL SULF 2.5 MG/0.5ML(0.5%) NEB SOLN NEB SCH ×5 (05:52→22:00)
[2022-12-04] MEDS: IPRATROPIUM BROM 0.5 MG/2.5ML INH SOL NEB SCH ×5 (05:52→21:59)
[2022-12-04] MEDS: POLYETHYLENE GLYCOL 17 GM PWDR PO SCH (10:00)
[2022-12-04] MEDS: HYDROCORTISONE ACET 25 MG RECTAL SUPP PR SCH ×3 (10:00→22:00)
[2022-12-04] MEDS: LACTULOSE 20Gm/30ML SOLN PO SCH ×2 (10:00→21:56)
[2022-12-04] MEDS: GABAPENTIN 100 MG CAP PO SCH ×2 (10:51→21:56)
[2022-12-04] MEDS: PANTOPRAZOLE 40 MG/10 ML VIAL INJ IV SCH (10:51)
[2022-12-04] MEDS: POTASSIUM CHL 10 Meq TABLET PO SCH (10:51)
[2022-12-04] MEDS: methylPREDNISolone SOD SUCC 40 MG/ML VL IV SCH ×2 (10:52→21:58)
[2022-12-04] MEDS: FUROSEMIDE 40 MG TAB PO SCH (10:52)
[2022-12-04] MEDS: NICOTINE 21MG/24 HR TOPICAL PATCH TD SCH (10:53)
[2022-12-04] MEDS: METOPROLOL TARTRATE 25 MG TAB PO SCH ×2 (10:54→21:57)
[2022-12-04 21:24] LABS: Basophils # (auto) 0 10 ^3/uL (0-0.2); Basophils % (auto) 0.4 % (0.0-2.0); Eosinophils # (auto) 0.1 10 ^3/uL (0-0.8); Eosinophils % (auto) 0.7 % (0.0-7.0); Hematocrit 34.7 % (41.0-53.0); Hemoglobin 11.3 g/dL (13.5-17.5); Lymphocytes # (auto) 1.9 10 ^3/uL (0.4-5.4); Lymphocytes % (auto) 23.2 % (10.0-50.0); Mean Corpuscular Hemoglobin 27.3 pg (28.0-32.0); Mean Corpuscular Hgb Conc. 32.5 g/dL (32.0-36.0); Mean Corpuscular Volume 83.9 fL (80.0-100.0); Monocytes # (auto) 0.6 10 ^3/uL (0-1.3); Monocytes % (auto) 7.2 % (0.0-12.0); Neutrophils # (auto) 5.5 10 ^3/uL (1.6-8.6); Neutrophils % (auto) 68.5 % (37.0-80.0); Nucleated Red Blood Cells % 0.1 %; Red Blood Cells 4.14 10^6/uL (4.5-5.90); Red Cell Distribution Width 17.1 % (11.8-14.3)
[2022-12-04 21:40] LABS: Alanine Aminotransferase 15 U/L (7-40); Albumin 3.9 g/dL (3.2-4.8); Alkaline Phosphatase 94 U/L (46-116); Anion Gap 5 (5-15); Aspartate Aminotransferase < 8 U/L (13-40); BUN/Creatinine Ratio 20.8 (10.0-20.0); Bilirubin, Total < 0.2 mg/dL (0.2-1.0); Blood Urea Nitrogen 31 mg/dL (9-23); Calcium 8.9 mg/dL (8.7-10.4); Carbon Dioxide 28 mmol/L (20-30); Chloride 107 mmol/L (98-107); Glucose 123 mg/dL (74-106); Potassium 4.2 mmol/L (3.5-5.1); Sodium 140 mmol/L (136-145); Total Protein 6.6 g/dL (5.7-8.2)
[2022-12-04] MEDS: PHENYTOIN SODIUM 100 MG CAP PO SCH (21:56)
[2022-12-04] MEDS: APIXABAN 5 MG TAB PO SCH (21:56)
[2022-12-04] MEDS: ATORVASTATIN 20 MG TAB PO SCH (21:57)
[2022-12-04] MEDS: QUEtiapine FUMARATE 100 MG TAB PO SCH (21:57)
[2022-12-05] VITALS (11 sets, daily range): BP systolic 127–138; BP diastolic 72–90; PULSE 72–90; RESP 16–24; TEMP 36.8; O2SAT 96–100
[2022-12-05] MEDS: ACCU-CHEK COMFORT CURVE STRIP VI SCH ×3 (00:13→12:13)
[2022-12-05] MEDS: InsuLIN REG 1unit/0.01ml Soln (100units/ml) SC SCH ×3 (05:09→12:00)
[2022-12-05] MEDS: ALBUTEROL SULF 2.5 MG/0.5ML(0.5%) NEB SOLN NEB SCH ×4 (05:51→14:07)
[2022-12-05] MEDS: IPRATROPIUM BROM 0.5 MG/2.5ML INH SOL NEB SCH ×4 (05:51→14:06)
[2022-12-05] MEDS: PANTOPRAZOLE 40 MG/10 ML VIAL INJ IV SCH (09:23)
[2022-12-05] MEDS: APIXABAN 5 MG TAB PO SCH (09:24)
[2022-12-05] MEDS: POLYETHYLENE GLYCOL 17 GM PWDR PO SCH (09:24)
[2022-12-05] MEDS: LACTULOSE 20Gm/30ML SOLN PO SCH (09:24)
[2022-12-05] MEDS: methylPREDNISolone SOD SUCC 40 MG/ML VL IV SCH (09:24)
[2022-12-05] MEDS: METOPROLOL TARTRATE 25 MG TAB PO SCH (09:25)
[2022-12-05] MEDS: POTASSIUM CHL 10 Meq TABLET PO SCH (09:25)
[2022-12-05] MEDS: GABAPENTIN 100 MG CAP PO SCH (09:25)
[2022-12-05] MEDS: FUROSEMIDE 40 MG TAB PO SCH (09:28)
[2022-12-05] MEDS: MORPHINE SULFATE INJ 2 MG/ml SYRG IV PRN (09:29)
[2022-12-05] MEDS: NICOTINE 21MG/24 HR TOPICAL PATCH TD SCH (09:36)
[2022-12-05] MEDS: HYDROCORTISONE ACET 25 MG RECTAL SUPP PR SCH (09:37)
[2022-12-05] MEDS ORDERED: ATOR20TA50 PO (11:14)
[2022-12-05] MEDS ORDERED: APIX5TAB PO (11:14)
[2022-12-05] MEDS ORDERED: QUET100T47 PO (11:14)
[2022-12-05] MEDS ORDERED: MET25T PO (11:14)
[2022-12-05] MEDS ORDERED: GAB100C PO (11:14)
[2022-12-05 13:59] LABS: Basophils # (auto) 0 10 ^3/uL (0-0.2); Basophils % (auto) 0.7 % (0.0-2.0); Eosinophils # (auto) 0 10 ^3/uL (0-0.8); Eosinophils % (auto) 0.2 % (0.0-7.0); Hematocrit 35.2 % (41.0-53.0); Hemoglobin 11.7 g/dL (13.5-17.5); Lymphocytes # (auto) 0.9 10 ^3/uL (0.4-5.4); Mean Corpuscular Hemoglobin 27.7 pg (28.0-32.0); Mean Corpuscular Hgb Conc. 33.3 g/dL (32.0-36.0); Mean Corpuscular Volume 83.2 fL (80.0-100.0); Monocytes # (auto) 0.2 10 ^3/uL (0-1.3); Monocytes % (auto) 3.1 % (0.0-12.0); Nucleated Red Blood Cells % 0.1 %; Red Blood Cells 4.24 10^6/uL (4.5-5.90); White Blood Cell 7.2 10^3/uL (4.4-10.8)
[2022-12-05 14:16] LABS: Anion Gap 5 (5-15); Calcium 8.9 mg/dL (8.7-10.4); Carbon Dioxide 28 mmol/L (20-30); Chloride 109 mmol/L (98-107); Potassium 4.2 mmol/L (3.5-5.1); Sodium 142 mmol/L (136-145)
[2022-12-05 14:22] LABS: BUN/Creatinine Ratio 15.9 (10.0-20.0); Blood Urea Nitrogen 24 mg/dL (9-23); Glucose 161 mg/dL (74-106)
== END 2022-12-05 16:15 | disposition home or self-care (01) | DRG 394 ==
LOC: ER 01:01 → TELE 09:19 → TELE-EAST 22:18 → TELE-E-ADS 12-01 16:39 → TELE-EAST 12-02 11:11
PROVIDERS: ADMIT Internal Medicine
PROC: 05H933Z Insertion of Infusion Device into Right Brachial Vein, Percutaneous Approach (ICD-10-PCS; 2022-12-02)
PROC: B54MZZA Ultrasonography of Right Upper Extremity Veins, Guidance (ICD-10-PCS; 2022-12-02)
PROC: 0DBN8ZX Excision of Sigmoid Colon, Via Natural or Artificial Opening Endoscopic, Diagnostic (ICD-10-PCS; 2022-12-03)
PROC: 0DBP8ZX Excision of Rectum, Via Natural or Artificial Opening Endoscopic, Diagnostic (ICD-10-PCS; principal; 2022-12-03 15:04)
DX: K64.8 Other hemorrhoids (principal); I13.0 Hypertensive heart and chronic kidney disease with heart failure and stage 1 through stage 4 chronic kidney disease, or unspecified chronic kidney disease; J44.1 Chronic obstructive pulmonary disease with (acute) exacerbation; I50.32 Chronic diastolic (congestive) heart failure; I82.431 Acute embolism and thrombosis of right popliteal vein; E78.5 Hyperlipidemia, unspecified; E11.22 Type 2 diabetes mellitus with diabetic chronic kidney disease; F17.210 Nicotine dependence, cigarettes, uncomplicated; F20.9 Schizophrenia, unspecified; F29 Unspecified psychosis not due to a substance or known physiological condition; N18.9 Chronic kidney disease, unspecified; K62.1 Rectal polyp; K63.5 Polyp of colon; G40.909 Epilepsy, unspecified, not intractable, without status epilepticus; I25.10 Atherosclerotic heart disease of native coronary artery without angina pectoris; Z86.711 Personal history of pulmonary embolism; Z98.61 Coronary angioplasty status; Z82.49 Family history of ischemic heart disease and other diseases of the circulatory system; Z82.5 Family history of asthma and other chronic lower respiratory diseases; Z83.3 Family history of diabetes mellitus; Z88.6 Allergy status to analgesic agent; Z88.0 Allergy status to penicillin; Z88.8 Allergy status to other drugs, medicaments and biological substances; Z79.899 Other long term (current) drug therapy; Z86.73 Personal history of transient ischemic attack (TIA), and cerebral infarction without residual deficits; I25.2 Old myocardial infarction; Z79.4 Long term (current) use of insulin; Z85.038 Personal history of other malignant neoplasm of large intestine
CPT/HCPCS: 36415; 70450; 71045; 74176; 78582; 80048; 80053; 80061; 80185; 80307; 81001; 82378; 82962; 83036; 83735; 83880; 84484; 85025; 85379; 85610; 85730; 86703; 86706; 86803; 86850; 86900; 86901; 93005; 93306; 93970; 94640; C9113; G0378; J1815; J2250; J2704

== ENCOUNTER 2024-08-26 20:32 | Inpatient (IN) | payer OTHER, MEDICAID ==
[~2024-08-26] VITALS: Ht 195.6 cm; Wt 90.0 kg
[~2024-08-26 20:32] MED LIST changes: +APIX5TAB PO; +ATOR20TA50 PO; -FURO1TAB33 PO; +GAB100C PO; +MET25T PO; -NAP500T PO; -NIF10C PO; +NIFE10CA52 PO; +PHEN1CAP38 PO; -PHEN1CAP60 PO; +QUET100T47 PO; -[UNRECOGNIZED DRUG - CODE] SC
--- NOTE | 2024-08-26 23:19 | DVH ---
EXAM: CT HEAD WITHOUT CONTRAST INDICATION: head injury TECHNIQUE: CT of the head without intravenous contrast. Radiation Dose : 1. Head: CT Dose: CTDI volume is 61.73 mGy. Dose-length product is 989.62 mGy*cm The dose indicators for CT are the volume Computed Tomography (CT) Dose Index (CTDIvol) and the Dose Length Product (DLP), and are measured in units of mGy and mGy-cm, respectively. These indicators are not patient dose, but values generated from the CT scanner acquisition factors. The report includes radiation exposure data for exposures received during this examination. COMPARISON: CT HEAD WITHOUT CONTRAST on DOS: 11/30/22 FINDINGS: There is no evidence of acute intracranial hemorrhage, extra-axial collection, mass effect, midline s hift, herniation or hydrocephalus. The ventricles, sulci and cisterns are age appropriate. The fierro-white differentiation is intact. The visualized paranasal sinuses and mastoid air cells are clear. The surrounding soft tissues and osseous structures are unremarkable. IMPRESSION: 1. No acute intracranial abnormality. Radiation optimization: All CT scans at this facility use at least one of these dose optimization lanie hniques: automated exposure control mA and/or kV adjustment per patient size (includes targeted exam s where dose is matched to clinical indication) or iterative reconstruction.
[2024-08-27] VITALS (8 sets, daily range): BP systolic 102–142; BP diastolic 63–99; PULSE 64–78; RESP 18–20; TEMP 97.6–98.2; O2SAT 93–100
[2024-08-27 00:32] LABS: Basophils # (auto) 0 10 ^3/uL (0-0.2); Eosinophils # (auto) 0.3 10 ^3/uL (0-0.8); Eosinophils % (auto) 6.1 % (0.0-7.0); Hemoglobin 10.7 g/dL (13.5-17.5); Lymphocytes # (auto) 1.5 10 ^3/uL (0.4-5.4); Lymphocytes % (auto) 29.4 % (10.0-50.0); Mean Corpuscular Hemoglobin 27.2 pg (28.0-32.0); Mean Corpuscular Hgb Conc. 32.4 g/dL (32.0-36.0); Monocytes # (auto) 0.5 10 ^3/uL (0-1.3); Monocytes % (auto) 10.6 % (0.0-12.0); Neutrophils # (auto) 2.7 10 ^3/uL (1.6-8.6); Neutrophils % (auto) 52.9 % (37.0-80.0); Nucleated Red Blood Cells % 0.3 %; Platelet Count (auto) 203 10^3/uL (140-450); Red Blood Cells 3.93 10^6/uL (4.5-5.90); Red Cell Distribution Width 16.2 % (11.8-14.3)
--- NOTE | 2024-08-27 00:33 | ED.PDOC ---
History of Present Illness HPI Comments 49 y/o M presents with complaint of chest pain that began suddenly and unprovoked an 1.5 hours ago. Patient has a history of lung cancer, CAD, CHF, CKF, COPD, CVA, DM, HLD, HIV, HTN, IA, PE, PNA, DVT, sick cell, schizophrenia, seizures, and tobacco abuse. He also mentions being started on Coumadin 2 months ago. No shortness of breath, nausea, vomiting, fever, chills, or further associated symptoms endorsed. Chief Complaint: Chest Pain Time Seen by MD: 00:10 Primary Care Provider: AlannaOA Reviewed Notes: Nurses Notes, Medications, Allergies Allergies: Coded Allergies: Acetaminophen (Verified Allergy, Unknown, 12/03/22) Aspirin (Unverified Allergy, Unknown, 03/30/14) Latex (Verified Allergy, Unknown, 12/03/22) Nitroglycerin (Verified Allergy, Unknown, 12/10/13) PO CAUSES RASH Penicillin G (Verified Allergy, Unknown, 12/10/13) Uncoded Allergies: IV CONTRAST (Allergy, Unknown, 01/19/19) Home Meds Active Scripts Quetiapine Fumerate (QUETIAPINE FUMARATE) 100 Mg Tab, 400 MG PO HS for 90 Days, #360 TAB Prov:HAWA LR MD 12/05/22 Metoprolol Tartrate (Lopressor) 25 Mg Tb, 25 MG PO BID for 90 Days, #180 TAB Prov:HAWA LR MD 12/05/22 Gabapentin (Gabapentin) 100 Mg Cap, 100 MG PO BID for 90 Days, #180 CAP Prov:HAWA LR MD 12/05/22 Atorvastatin Calcium (ATORVASTATIN CALCIUM) 20 Mg Tab, 20 MG PO HS for 90 Days, #90 TAB Prov:HAWA LR MD 12/05/22 Apixaban Base (ELIQUIS) 5 Mg Tab, 5 MG PO BID for 90 Days, #180 TAB Prov:HAWA LR MD 12/05/22 Reported Medications Potassium Chloride (Klor-Con M20) 20 Meq Tab, 20 MEQ PO DAILY, TAB 01/20/19 Nifedipine (PROCARDIA CAPSULE) 10 Mg Cp, 10 MG PO, CAP 01/20/19 Phenytoin Sodium (DILANTIN CAPSULE) 100 Mg Cp, 100 MG PO TID for 30 Days 01/20/19 Furosemide (Lasix) 40 Mg Tab, 40 MG PO DAILY, TAB 01/20/19 Nitroglycerin (Nitroglycerin Transdermal) 0.2 Mg/Hr Dis, 0.2 MG TD DAILY PRN for FOR CHEST PAIN, DIS 07/20/14 Information Source: Patient Mode of Arrival: Ambulatory Severity: Moderate Timing: Hours Duration: Since onset Prehospital treatment: None Past Medical History PAST MEDICAL HISTORY: CAD, Cancer (Lung ), CHF, CKF, COPD, CVA, DM, High Lipids, HIV, HTN, IA, PE, Schizophrenia, Seizures Past Medical History (Other): PNA Sickle Cell DVT Surgical History: Denies all surgeries Family History Family History: Family hx of heart kassandra Social History Smoker: Cigarettes, Less Than 1 Pack/Day Alcohol: Denies ETOH Use Drugs: Denies Drug Use Lives In: Homeless All Other Systems: Reviewed and Negative (As per HPI) Physical Exam General Appearance: Mild Distress, Normal HEENT: Normal ENT Inspection, Pharynx Normal, TMs Normal Neck: Full Range of Motion, Non-Tender, Normal, Normal Inspection Respiratory: Chest Non-Tender, Lungs Clear, No Accessory Muscle Use, No Respiratory Distress, Normal Breath Sounds Cardiovascular: No Edema, No JVD, No Murmur, No Gallop, Normal Peripheral Pulses, Regular Rate/Rhythm Breast Exam: Deferred Gastrointestinal: No Organomegaly, Non Tender, No Pulsatile Mass, Normal Bowel Sounds, Soft Genitalia: Deferred Pelvic: Deferred Rectal: Deferred Extremities: No calf tenderness, Normal capillary refill, Normal inspection, Normal range of motion, Non-tender, No pedal edema Musculoskeletal : Apperance: Normal Neurologic: Alert, timber management specialist II-XII nml as Tested, No Motor Deficits, Normal Affect, Normal Mood, No Sensory Deficits Cerebellar Function: Normal Reflexes: Normal Skin: Dry, Normal Color, Warm Lymphatic: No Adenopathy Was a procedure done? Was a procedure done?: No EKG EKG : Pulse Rate (adult): 90 [place]: Normal Cardiac Rhythm: NSR Block: None Hypertrophy: None ST: Normal Differential Dx Considerations may include: IA, PE, ACS, URI, PNA, acute CHF/COPD exacerbation, among others X-Ray, Labs, Meds, VS Vital Signs Date Time Temp Pulse Resp B/P (MAP) Pulse Ox O2 Delivery O2 Flow Rate FiO2 08/27/24 00:33 90 08/26/24 22:18 98.3 74 16 130/85 (100) 96 98.3 08/26/24 22:18 Room Air* 0 21 08/26/24 20:40 99.5 88 16 141/82 (101) 99 99.5 08/26/24 20:36 90 Lab Test 08/26/24 23:03 08/26/24 21:52 08/26/24 20:45 Range/Units POC Glucose 83 70-106 mg/dl Troponin I High Sensitivity 5 5 </=54 ng/L White Blood Count 5.0 4.4-10.8 10^3/uL Red Blood Count 3.93 L 4.5-5.90 10^6/uL Hemoglobin 10.7 L 13.5-17.5 g/dL Hematocrit 33.0 L 41.0-53.0 % Mean Corpuscular Volume 84.0 80.0-100.0 fL Mean Corpuscular Hemoglobin 27.2 L 28.0-32.0 pg Mean Corpuscular Hemoglobin Concent 32.4 32.0-36.0 g/dL Red Cell Distribution Width 16.2 H 11.8-14.3 % Platelet Count 203 140-450 10^3/uL Mean Platelet Volume 8.8 6.9-10.8 fL Neutrophils (%) (Auto) 52.9 37.0-80.0 % Lymphocytes (%) (Auto) 29.4 10.0-50.0 % Monocytes (%) (Auto) 10.6 0.0-12.0 % Eosinophils (%) (Auto) 6.1 0.0-7.0 % Basophils (%) (Auto) 1.0 0.0-2.0 % Neutrophils # (Auto) 2.7 1.6-8.6 10 ^3/uL Lymphocytes # (Auto) 1.5 0.4-5.4 10 ^3/uL Monocytes # (Auto) 0.5 0-1.3 10 ^3/uL Eosinophils # (Auto) 0.3 0-0.8 10 ^3/uL Basophils # (Auto) 0 0-0.2 10 ^3/uL Nucleated Red Blood Cells 0.3 % Prothrombin Time 11.0 9.3-11.8 sec Prothrombin Time INR 1.04 0.9-1.15 Activated Partial Thromboplast Time 27.9 24.5-34.5 SEC Sodium Level 145 136-145 mmol/L Potassium Level 4.6 3.5-5.1 mmol/L Chloride Level 111 H 98-107 mmol/L Carbon Dioxide Level 24 20-31 mmol/L Anion Gap 10 5-15 Blood Urea Nitrogen 24 H 9-23 mg/dL Creatinine 1.36 H 0.700-1.30 mg/dL Glomerular Filtration Rate Calc 63 >90 mL/min BUN/Creatinine Ratio 17.6 10.0-20.0 Serum Glucose 99 74-106 mg/dL Calcium Level 8.8 8.7-10.4 mg/dL Total Bilirubin 0.2 0.2-1.0 mg/dL Aspartate Amino Transferase (AST) 16 <34 U/L Alanine Aminotransferase (ALT) 10 7-40 U/L Alkaline Phosphatase 87 46-116 U/L Total Protein 7.0 5.7-8.2 g/dL Albumin 4.0 3.2-4.8 g/dL [place] [id number] Ph: [phone] DIAGNOSTIC IMAGING Diagnostic Imaging Report : [id number] Signed PATIENT: LEVI AMOS ACCT: [id number] UNIT: [id number] : 1975 LOC: ER ROOM / BED: / AGE / SEX: 49 / M ADM STATUS: REG ER SERVICE [id number] ORDERING PHYSICIAN: DESIRE DODGE MD PROCEDURE(s): HWOCT - HEAD WITHOUT CONTRAST REASON: head injury ORDER NUMBER(s): [id number], ACCESSION NUMBER(s): [id number] EXAM: CT HEAD WITHOUT CONTRAST INDICATION: head injury TECHNIQUE: CT of the head without intravenous contrast. Radiation Dose : 1. Head: CT Dose: CTDI volume is 61.73 mGy. Dose-length product is 989.62 mGy*cm The dose indicators for CT are the volume Computed Tomography (CT) Dose Index (CTDIvol) and the Dose Length Product (DLP), and are measured in units of mGy and mGy-cm, respectively. These indicators are not patient dose, but values generated from the CT scanner acquisition factors. The report includes radiation exposure data for exposures received during this examination. COMPARISON: CT HEAD WITHOUT CONTRAST on DOS: 11/30/22 FINDINGS: There is no evidence of acute intracranial hemorrhage, extra-axial collection, mass effect, midline shift, herniation or hydrocephalus. The ventricles, sulci and cisterns are age appropriate. The fierro-white differentiation is intact. The visualized paranasal sinuses and mastoid air cells are clear. The surrounding soft tissues and osseous structures are unremarkable. IMPRESSION: 1. No acute intracranial abnormality. Radiation optimization: All CT scans at this facility use at least one of these dose optimization techniques: automated exposure control mA and/or kV adjustment per patient size (includes targeted exams where dose is matched to clinical indication) or iterative reconstruction. ATED BY: ANTONY BROWN MD DICTATED DATE/TIME: 08/26/242315 SIGNED BY: ANTONY BROWN MD SIGNED DATE/TIME: 08/26/242315 CC: Time of 1ST Reevaluation: 00:18 Reevaluation 1ST: Unchanged Patient Education/Counseling: Diagnosis, Treatment, Need For Follow Up Family Education/Counseling: No Family Present Departure 1 Departure Time of Disposition: 00:54 Impression: Primary Impression: Acute coronary syndrome Additional Impressions: History of pulmonary embolism History of DVT (deep vein thrombosis) Acute renal injury Disposition: ADMITTED INPATIENT Admit to: [facility] Condition: Guarded Additional Instructions: Your heart enzymes today were normal and your head CT showed no acute problems Follow up with your Primary Physician Return to the Emergency Department for any worsening symptoms or concerns Discharged With: Self Comments Chest Pain in Patient with History of CAD, DVT, and PE Chief Complaint: Chest pain History of Present Illness: 49-year-old male with extensive past medical history including coronary artery disease, right lung mass/lung cancer, COPD, CHF, right lower leg DVT, pulmonary embolism, sickle cell anemia, and schizophrenia presents to the Emergency Department with complaints of dull, substernal chest pain. The patient is currently on Coumadin for management of his DVT and PE. However, today's lab results indicate his INR is in the normal range at 1.04, suggesting subtherapeutic anticoagulation. Given his history of CAD and current presentation with chest pain, along with recent history of PE and DVT, the patient requires admission for evaluation of possible acute coronary syndrome. Review of Systems: Constitutional: Not specifically mentioned Cardiovascular: Positive for chest pain described as dull and substernal Respiratory: Not specifically mentioned Gastrointestinal: Not specifically mentioned Genitourinary: Not specifically mentioned Musculoskeletal: Not specifically mentioned Neurological: Not specifically mentioned Psychiatric: History of schizophrenia noted Hematologic: History of sickle cell anemia Medications: Coumadin (Warfarin) - for DVT and PE Allergies: No known allergies documented Past Medical History: Coronary artery disease Right lung mass/lung cancer Chronic obstructive pulmonary disease (COPD) Congestive heart failure (CHF) Deep vein thrombosis (DVT) of right lower leg Pulmonary embolism (PE) Sickle cell anemia Schizophrenia Physical Exam: General: Limited exam information provided Extremities: Bilateral lower extremity edema, right greater than left, consistent with location of previous DVT Lab Results: CBC: - Hemoglobin: 11 g/dL - Hematocrit: 33% - Assessment: Mild anemia Chemistry: - Creatinine: 1.36 mg/dL (elevated from baseline of 1.24) - Assessment: Acute kidney injury Cardiac enzymes: - Troponin: 5 ng/L (normal) Coagulation studies: - INR: 1.04 (normal range, subtherapeutic for anticoagulation) Imaging and Other Relevant Results: No imaging results documented in schedule manager Medical Decision Making: Summary Statement: 49-year-old male with history of CAD, DVT/PE on Coumadin (currently subtherapeutic), and multiple comorbidities presenting with substernal chest pain requiring admission for ACS evaluation. Problem List: 1. Chest pain - possible ACS 2. Subtherapeutic anticoagulation with history of DVT/PE 3. Bilateral lower extremity edema, R>L 4. Acute kidney injury 5. Mild anemia 6. Multiple comorbidities including CAD, lung cancer, COPD, CHF, sickle cell anemia, and schizophrenia Differential Diagnosis: For chest pain: 1. Acute coronary syndrome 2. Recurrent pulmonary embolism 3. COPD exacerbation 4. CHF exacerbation 5. Musculoskeletal chest pain 6. Anxiety-related chest pain ED Course: Patient presented with chest pain and was evaluated in the Emergency Department. Labs were drawn showing mild anemia, acute kidney injury, normal troponin, and subtherapeutic INR. Patient was given aspirin in the ED. Given the patient's complex medical history including CAD, recent DVT/PE with subtherapeu tic anticoagulation, and current chest pain, the decision was made to admit the patient for further evaluation and management of possible acute coronary syndrome. Assessment and Plan: 1. Chest Pain/Possible Acute Coronary Syndrome: - Admit to telemetry for cardiac monitoring - Serial cardiac enzymes - Aspirin 325mg given in ED, continue daily - Consider cardiology consultation - ECG monitoring 2. DVT/PE with Subtherapeutic Anticoagulation: - Reassess Coumadin dosing - Consider bridge therapy with heparin or LMWH until therapeutic - Monitor for signs of recurrent DVT/PE 3. Bilateral Lower Extremity Edema: - Elevate extremities - Consider compression stockings - Monitor for changes in edema 4. Acute Kidney Injury: - Monitor renal function - Ensure adequate hydration - Avoid nephrotoxic medications 5. Mild Anemia: - Monitor hemoglobin/hematocrit - Consider workup for etiology if not already known 6. Other Comorbidities (CAD, Lung Cancer, COPD, CHF, Sickle Cell Anemia, Schizophrenia): - Continue home medications as appropriate - Monitor for exacerbations Disposition: Admit to inpatient telemetry unit for further evaluation and candy peguero Additional Notes: Patient admitted for acute coronary syndrome workup with history of DVT and PE Billing Information: ICD-10: R07.9 - Chest pain, unspecified ICD-10: I25.10 - Atherosclerotic heart disease of [place] coronary artery without angina pectoris ICD-10: I82.401 - Acute embolism and thrombosis of unspecified deep veins of right lower extremity ICD-10: I26.99 - Other pulmonary embolism without acute cor pulmonale ICD-10: N17.9 - Acute kidney failure, unspecified ICD-10: D57.1 - Sickle-cell disease without crisis Critical Care Note Critical Care Time?: Yes (35 min-critical care time only) Critical care comment: Total critical care time: Approximately 36 minutes Due to a high probability of clinically significant, life threatening deterioration, the patient required my highest level of preparedness to intervene emergently and I personally spent this critical care time directly and personally managing the patient. This critical care time included obtaining a history; examining the patient; pulse oximetry; ordering and review of studies; arranging urgent treatment with development of a management plan; evaluation of patient's response to treatment; frequent reassessment; and, discussions with o ther providers. This critical care time was performed to assess and manage the high probability of imminent, life-threatening deterioration that could result in multi-organ failure. It was exclusive of separately billable procedures and treating other patients. Stability Stability form required: No Heart Score Heart Score: Heart Score Response (Comments) Value History Moderate Suspicious 1 EKG Normal 0 Age 45-64 1 Risk Factors >3 or Hx ASHD 2 Troponin Normal limit 0 Total 4 I personally scribed for DESIRE DODGE MD ([email or web address]) on 08/27/24 at 00:33. Electronically submitted by Ranulfo Meyer [email or web address]). DESIRE DODGE MD Aug 27, 2024 00:33
[2024-08-27 00:39] LABS: Alanine Aminotransferase 10 U/L (7-40); Alkaline Phosphatase 87 U/L (46-116); Anion Gap 10 (5-15); Aspartate Aminotransferase 16 U/L (<34); BUN/Creatinine Ratio 17.6 (10.0-20.0); Calcium 8.8 mg/dL (8.7-10.4); Carbon Dioxide 24 mmol/L (20-31); Glucose 99 mg/dL (74-106); Potassium 4.6 mmol/L (3.5-5.1); Sodium 145 mmol/L (136-145)
[2024-08-27 00:40] LABS: Bilirubin, Total 0.2 mg/dL (0.2-1.0); Blood Urea Nitrogen 24 mg/dL (9-23); Chloride 111 mmol/L (98-107)
[2024-08-27 00:40] LABS: INR 1.04 (0.9-1.15); Partial Thromboplastin Time 27.9 SEC (24.5-34.5)
--- NOTE | 2024-08-27 00:50 | DVH ---
CHEST RADIOGRAPH Indication: sob Technique: Single frontal view of the chest was obtained COMPARISON: XY CHEST PORTABLE on DOS: 11/30/22, CHEST XRAY 1 VIEW on DOS: 03/27/19, CHEST PORTABLE on D OS: 01/19/19 FINDINGS: Lines and Tubes: None Lungs: Clear Pleura: No effusion. No pneumothorax. Cardiomediastinal contours: Unremarkable Bones: Unremarkable IMPRESSION: 1. No acute disease.
[2024-08-27] MEDS: ASPirin 81 mg TAB PO ONE (02:40)
[2024-08-27] MEDS ORDERED: MORPHINE SULFATE INJ 2 MG/ml SYRG IV PRN (04:00)
[2024-08-27] MEDS ORDERED: NITROGLYCERIN 0.4 MG SL TAB SL PRN (04:00)
[2024-08-27] MEDS: SODIUM CHLORIDE 0.9% 1,000 ML IV ONE (04:30)
[2024-08-27] MEDS: SODIUM CHLORIDE 0.9% 500 ML IV ONE (04:30)
[2024-08-27] MEDS: MORPHINE SULFATE INJ 2 MG/ml SYRG IV PRN ×2 (05:01→17:54)
[2024-08-27 05:30] LABS: Urine Bacteria None Seen /hpf (None Seen)
[2024-08-27 05:40] LABS: Urine Blood 2+ /uL (Negative); Urine Clarity Clear (Clear); Urine Color Light-Yellow (Yellow); Urine Protein, UAD Negative (Negative); Urine Specific Gravity 1.024 (1.001-1.035); Urine Squamous Epithelial Cell FEW /hpf (<5); Urine Urobilinogen Normal (Negative); Urine WBC 2 /HPF (0-3); Urine pH 5.5 (5.0-9.0)
[2024-08-27] MEDS: NIFEdipine ER 30 MG TAB PO ONE (05:43)
[2024-08-27] MEDS: PHENYTOIN SODIUM 100 MG CAP PO SCH (05:44)
[2024-08-27 05:48] LABS: Cocaine Screen, Urine Neg (NEGATIVE); Opiate Scree,Urine Neg (NEGATIVE)
[2024-08-27 05:49] LABS: Amphetamine Screen, Urine Neg (NEGATIVE); Barbiturate Scree,Urine Neg (NEGATIVE); Benzodiazephine Screen, Urine Neg (NEGATIVE); Cannabinoid Screen, Urine Neg (NEGATIVE); Phencyclidine Screen, Urine Neg (NEGATIVE)
[2024-08-27 06:23] LABS: COVID19 ANTIGEN SOFIA FIA NEGATIVE (NEGATIVE); Rapid Influenza A Negative (Negative); Rapid Influenza B Negative (Negative)
--- NOTE | 2024-08-27 06:50 | DVHHPRES ---
History of Present Illness Resident Creating Document: TONY SALOMON RESIDENT History of Present Illness Patient is a 49-year-old male with a past medical history of coronary artery disease , SD x3 with questionable history of 1 drug-eluting stent, congestive heart failure, hyperlipidemia, COPD, CVA x3, DVT, PE, seizures, CKD sickle cell anemia, schizophrenia, recently diagnosed right upper lung mass on biopsy showed lung cancer in [place] presented to the ER with a chief complaint of chest pain. Reported he started to have sudden onset chest pain today, substernal, squeezing chest tightness in character, nonradiating and occurred at rest following which patient came to the hospital for further evaluation. Patient denied shortness of breath, palpitations, nausea, vomiting. Denies acidity, reflux, dysphagia, fever, chills. Past medical history: coronary artery disease , SD x3 with a 1 drug-eluting stent, congestive heart failure, hyperlipidemia, COPD, CVA x3, DVT, PE, seizures, CKD sickle cell anemia, schizophrenia, recently diagnosed right upper lung mass on biopsy showed lung cancer in [place] Past surgical history: PCI, inferior vena cava filter placed more than 10 years ago (CT abdomen in the records from 2019 shows IVC filter present but later imaging done in 2022 does not report anything about IVC filter) Social history: Patient apparently was a heavy smoker but is trying to come quit and currently smokes 3-4 cigarettes every day, denies alcohol or any other drug use Home medications: Eliquis 5 mg b.i.d., atorvastatin 20 mg, Lasix 40 mg, carvedilol 12.5 b.i.d., diltiazem 120 mg extended release, lacosamide 100 mg b.i.d., quetiapine 400 mg HS, phenytoin 100 mg t.i.d., nifedipine 30 mg daily Review of Systems Review of Systems Patient seen and examined at the bedside Reports of [id number] chest pressure, denies shortness of breath or any other acute complaints Allergies: Coded Allergies: Acetaminophen (Verified Allergy, Unknown, 12/03/22) Aspirin (Unverified Allergy, Unknown, 03/30/14) Latex (Verified Allergy, Unknown, 12/03/22) Nitroglycerin (Verified Allergy, Unknown, 12/10/13) PO CAUSES RASH Penicillin G (Verified Allergy, Unknown, 12/10/13) Uncoded Allergies: IV CONTRAST (Allergy, Unknown, 01/19/19) Medications Current Medications Medications Dose Ordered Sig/Татьяна Route Start Time Stop Time Status Last Admin Dose Admin Nitroglycerin 0.4 mg Q5MINP PRN SL 08/27/24 04:00 UNV Morphine Sulfate 2 mg Q30M PRN IV 08/27/24 04:00 Phenytoin Sodium 100 mg Q8HR PO 08/27/24 06:00 08/27/24 05:44 100 MG Nifedipine 30 mg DAILY PO 08/28/24 10:00 Carvedilol 6.25 mg Q12HR PO 08/27/24 10:00 Quetiapine Fumarate 400 mg HS PO 08/27/24 22:00 Morphine Sulfate 2 mg Q6HPRN PRN IV 08/27/24 04:00 08/27/24 05:01 2 MG Enoxaparin Sodium 90 mg Q12HR SC 08/27/24 10:00 Pantoprazole Sodium 40 mg DAILY IV 08/27/24 10:00 Exam Vital Signs Vital Signs Date Time Temp Pulse Resp B/P (MAP) Pulse Ox O2 Delivery O2 Flow Rate FiO2 08/27/24 05:43 142/99 08/27/24 05:31 57 16 08/27/24 05:00 97 08/27/24 02:40 97.7 97.7 08/27/24 02:40 Room Air* 0 21 Exam Gen - no pallor, no icterus, no cyanosis, no clubbing, no LAD, right lower extremity edematous with a history of DVT Skin - Patients skin is warm and dry. HEENT - normocephalic, atraumatic, moist mucous membranes. Neck - full ROM, no LAD, no JVD Pulmonary - B/L diminished breath sounds with diffuse inspiratory wheezing, no crackles, no stridor. cardiovascular - regular S1,S2 heard, no added sounds, no murmurs heard. pe ripheral pulses normal radial 2+, pedal 2+. capillary refill normal <2 secs. GI - soft, nontender abdomen. no hepatospleenomegaly. Bowel sounds normoactive Neurological - Patient is A/O X 3 . Bilateral upper extremity strength 5/5, bilateral lower extremity strength 5/5, no facial droop, normal speech, no tremor, no sensory deficiets. Labs/Xrays Labs Test 08/27/24 05:33 08/27/24 05:20 08/26/24 23:03 08/26/24 21:52 Range/Units Urine Color Light-yellow Yellow Urine Clarity Clear Clear Urine pH 5.5 5.0-9.0 Urine Specific [place] 1.024 1.001-1.035 Urine Protein Negative Negative Urine Ketones Negative Negative Urine Blood 2+ H Negative /uL Urine Nitrite Negative Negative Urine Bilirubin Negative Negative Urine Urobilinogen Normal Negative mg/dL Urine Leukocyte Esterase Negative Negative /uL Urine RBC 141 0 - 3 /hpf Urine Microscopic WBC 2 0-3 /HPF Urine Squamous Epithelial Cells Few <5 /hpf Urine Bacteria None seen None Seen /hpf Urine Glucose Normal Normal mg/dL Urine Opiates Screen Neg NEGATIVE Urine Fentanyl Screen Neg NEGATIVE Urine Barbiturates Screen Neg NEGATIVE Urine Phencyclidine Screen Neg NEGATIVE Urine Amphetamines Screen Neg NEGATIVE Urine Benzodiazepines Screen Neg NEGATIVE Urine Cocaine Screen Neg NEGATIVE Urine Cannabinoids Screen Neg NEGATIVE POC Glucose 83 70-106 mg/dl Prothrombin Time 11.0 9.3-11.8 sec Prothrombin Time INR 1.04 0.9-1.15 Activated Partial Thromboplast Time 27.9 24.5-34.5 SEC Troponin I High Sensitivity 5 </=54 ng/L Test 08/26/24 20:45 08/26/24 04:25 Range/Units White Blood Count 5.0 4.4-10.8 10^3/uL Red Blood Count 3.93 L 4.5-5.90 10^6/uL Hemoglobin 10.7 L 13.5-17.5 g/dL Hematocrit 33.0 L 41.0-53.0 % Mean Corpuscular Volume 84.0 80.0-100.0 fL Mean Corpuscular Hemoglobin 27.2 L 28.0-32.0 pg Mean Corpuscular Hemoglobin Concent 32.4 32.0-36.0 g/dL Red Cell Distribution Width 16.2 H 11.8-14.3 % Platelet Count 203 140-450 10^3/uL Mean Platelet Volume 8.8 6.9-10.8 fL Neutrophils (%) (Auto) 52.9 37.0-80.0 % Lymphocytes (%) (Auto) 29.4 10.0-50.0 % Monocytes (%) (Auto) 10.6 0.0-12.0 % Eosinophils (%) (Auto) 6.1 0.0-7.0 % Basophils (%) (Auto) 1.0 0.0-2.0 % Neutrophils # (Auto) 2.7 1.6-8.6 10 ^3/uL Lymphocytes # (Auto) 1.5 0.4-5.4 10 ^3/uL Monocytes # (Auto) 0.5 0-1.3 10 ^3/uL Eosinophils # (Auto) 0.3 0-0.8 10 ^3/uL Basophils # (Auto) 0 0-0.2 10 ^3/uL Nucleated Red Blood Cells 0.3 % Sodium Level 145 136-145 mmol/L Potassium Level 4.6 3.5-5.1 mmol/L Chloride Level 111 H 98-107 mmol/L Carbon Dioxide Level 24 20-31 mmol/L Anion Gap 10 5-15 Blood Urea Nitrogen 24 H 9-23 mg/dL Creatinine 1.36 H 0.700-1.30 mg/dL Glomerular Filtration Rate Calc 63 >90 mL/min BUN/Creatinine Ratio 17.6 10.0-20.0 Serum Glucose 99 74-106 mg/dL Calcium Level 8.8 8.7-10.4 mg/dL Total Bilirubin 0.2 0.2-1.0 mg/dL Aspartate Amino Transferase (AST) 16 <34 U/L Alanine Aminotransferase (ALT) 10 7-40 U/L Alkaline Phosphatase 87 46-116 U/L Total Protein 7.0 5.7-8.2 g/dL Albumin 4.0 3.2-4.8 g/dL Phenytoin (Dilantin) Level < 2.0 L 10-20 ug/mL Assessment/Plan Assessment/Plan Acute chest pain, rule out ACS Possible unstable angina H/O coronary artery disease H/O SD, questionable PCI with a stent Hypertensive heart disease with a probable heart failure preserved ejection fraction H/o DVT and PE - patient is allergic to aspirin, given Plavix and atorvastatin - on enoxaparin therapeutic dose (home medication Eliquis 5 mg b.i.d.) - 12 lead ECG shows sinus rhythm with normal axis, tall T-waves in V3 to V5 - troponin level normal - morphine p.r.n. for chest pain - echocardiogram pending - nifedipine 30 mg daily, carvedilol 6.25 b.i.d. ( at home takes 12.5) COPD exacerbation H/o PE, s/p IVC filter ( ? Whether it was removed ) Recently diagnosed right upper lung mass (biopsy done in [place]) - DuoNebs q.8 hours - Solu-Medrol daily - azithromycin 500 daily - chest x-ray did not show any mass, recommend CT chest DYLLAN on CKD likely due to VMN - monitor kidney function and BMP - IV fluids 1.5 L given H/o seizure disorder - continued on phenytoin 100 mg t.i.d. - home patient takes lacosamide 100 mg b.i.d.( medication not available in the hospital formulary and patient does not have it with him) - low phenytoin levels H/o sickle cell anemia Normocytic hypochromic anemia - monitor H&H - iron and ferritin pending - retic count pending - IV morphine for pain control - IV fluids - oxygen as needed PUD prophylaxis: Protonix DVT prophylaxis: On therapeutic dose enoxaparin Goals of care discussed with the patient for over 23 minutes. Full code Time spent: 43 minutes Plan discussed with Dr. Mota Plan discussed with: Patient My Orders Orders - TONY SALOMON RESIDENT Procedure Category Date Status Time Admit ADMIT 08/27/24 Transmitted 03:55 Nitroglycerin PHA 08/27/24 Pending Sublingual (Ntrostat 04:00 Morphine Sulfate PHA 08/27/24 In Process Injection 04:00 Oxygen By Nasal RT 08/27/24 Transmitted Cannula 03:55 Stat Ekg For Chest GIL 08/27/24 In Process Pain 03:55 Notify Of Changes [facility] 08/27/24 In Process From Base 03:55 Firmware Developer For GIL 08/27/24 In Process 24 Hours 03:55 Emergency Dysrhythmia [facility] 08/27/24 In Process Protocol 03:55 Rhythm Strips Once [facility] 08/27/24 In Process Every Shift 03:55 Bilat Lower Dvt 08/27/24 Logged 03:55 Phenytoin Capsule PHA 08/27/24 In Process (Dilantin Capsule) 06:00 Complete Blood Count LAB 08/28/24 Verified 06:00 Basic Metabolic Panel LAB 08/28/24 Verified 06:00 Reticulocyte Count LAB 08/28/24 Verified 06:00 PTPTT LAB 08/28/24 Verified 06:00 Nifedipine Er PHA 08/28/24 In Process (Procardia Xl 10:00 Carvedilol Tablet PHA 08/27/24 In Process (Coreg Tablet) 10:00 Quetiapine Fumarate PHA 08/27/24 In Process Tablet (Seroquel Tab 22:00 Morphine Sulfate PHA 08/27/24 In Process Injection 04:00 Enoxaparin Sodium PHA 08/27/24 In Process (Lovenox) 10:00 Pantoprazole PHA 08/27/24 In Process (Protonix) 10:00 Sodium Chloride 0.9% PHA 08/27/24 In Process 04:00 Covid19 Antigen [place] LAB 08/27/24 In Process Rapid Influenza A&B LAB 08/27/24 In Process 03:55 Stool Occult Blood LAB 08/27/24 Logged 03:55 Date of Service: Aug 27, 2024 Billing Provider: BORA MOTA MD Common Visit Codes: [id number] INP/OBS CARE (HIGH) Secondary Visit Codes: [id number] CARE PLAN 30 MINUTES TONY SALOMON RESIDENT Aug 27, 2024 06:50
[2024-08-27] MEDS: ALBUTEROL SULF 2.5 MG/0.5ML(0.5%) NEB SOLN NEB ONE (07:01)
[2024-08-27] MEDS: IPRATROPIUM BROM 0.5 MG/2.5ML INH SOL NEB ONE (07:01)
[2024-08-27 07:27] LABS: % Iron Saturation 12.1 % (20-55)
--- NOTE | 2024-08-27 08:12 | DVH ---
Bilateral lower extremity venous duplex Clinical History: h/o right LE dvt Comparison: US BILAT LOWER DVT on DOS: 11/30/22 Technique: Duplex Doppler evaluation of the deep venous systems of both lower extremities from the common femora l veins to the popliteal veins including color Doppler and spectral/pulsed waveform analysis was perf ormed. Findings: RIGHT SIDE: The common femoral vein demonstrates appropriate compressibility and waveform variability. There is compressibility/patency of the great saphenous vein at the proximal thigh. The femoral vein demonstrates appropriate compressibility and waveform variability. The deep femoral vein demonstrates appropriate compressibility and waveform variability. The popliteal vein demonstrates peripheral thrombus and partial compressibility. There is normal compressibility at the tibioperoneal trunk. LEFT SIDE: The common femoral vein demonstrates appropriate compressibility and waveform variability. There is compressibility/patency of the great saphenous vein at the proximal thigh. The femoral vein demonstrates appropriate compressibility and waveform variability. The deep femoral vein demonstrates appropriate compressibility and waveform variability. The popliteal vein demonstrates appropriate compressibility and waveform variability. There is normal compressibility at the tibioperoneal trunk. Impression: No acute right or left femoropopliteal venous thrombosis. 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
[2024-08-27] MEDS: methylPREDNISolone SOD SUCC 40 MG/ML VL IV ONE (09:23)
[2024-08-27] MEDS: ATORVASTATIN 20 MG TAB PO ONE (09:23)
[2024-08-27] MEDS: CLOPIDOGREL BISULFATE 75 MG TAB PO ONE (09:23)
[2024-08-27] MEDS: PANTOPRAZOLE 40 MG/10 ML VIAL INJ IV SCH (09:53)
[2024-08-27] MEDS: AZITHROMYCIN 250 MG TAB PO SCH (09:53)
[2024-08-27] MEDS: ENOXAPARIN SOD 100 MG/1 ML SYRINGE SC SCH (09:54)
[2024-08-27] MEDS: CARVEDILOL 3.125 MG TAB PO SCH (09:56)
[2024-08-27] MEDS: CLOPIDOGREL BISULFATE 75 MG TAB PO SCH (11:23)
--- NOTE | 2024-08-27 12:01 | DVHSR ---
APPROVED REPORT EXAM: Two-dimensional and M-mode echocardiogram with Doppler and color Doppler. Blood Pressure: 142/99 mmHg INDICATION SOB RISK FACTORS Height: 6'5", Weight: 198 DIMENSIONS LVDd5.0 (3.8-5.7cm)LA (2D)4.4 (1.9-4.0cm)Aortic Root3.3 (2.0-3.7cm) LVDs2.8 (2.5-4.0cm)LA (MM) (1.9-4.0cm)Aortic Cusp Exc1.8 (1.5-2.0cm) EF (%) 65.0 (55-70%)Rt. Atrium4.9 (1.9-4.0cm)Asc. Aorta cm IVSd1.0 (0.7-1.1cm)RV (D)4.1 (1.8-2.4cm) PWd0.9 (0.7-1.1cm) Mitral Valve MitralMitral Stenosis E wave1.17m/sMV Mean GR.mmHg A wave0.98m/sMV Peak GR.mmHg E/A ratio1.22D MVAcm2 DECEL [id number] 1/2 Timems Aortic Valve Aortic ValveAortic Stenosis V11.20m/Sheila Mean GR.8mmHg V22.01m/Sheila Peak GR.16mmHg LVOT Diameter2.0 (1.8-2.4cm)Doppler AVA1.87cm2 Pulmonic Valve V21.16m/s Tricuspid Valve TR Velocity2.90m/s [id number] Conclusion lvef 65% normal rv function normal atria no severe valve abnormalities noted
[2024-08-27] MEDS: IPRATROPIUM BROM 0.5 MG/2.5ML INH SOL NEB SCH (13:29)
[2024-08-27] MEDS: ALBUTEROL SULF 2.5 MG/0.5ML(0.5%) NEB SOLN NEB SCH (13:30)
[2024-08-27] MEDS ORDERED: DEXTROSE (50%) 50ML SYRG IV PRN (14:00)
--- NOTE | 2024-08-27 14:40 | ECG ---
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
[2024-08-27] MEDS ORDERED: LORazepam 2MG/ML-1ML VIAL IV PRN (15:15)
--- NOTE | 2024-08-27 16:09 | DVHPNRES ---
Progress Note Date Seen: Aug 27, 2024 Resident Creating Document: BRIJESH WALLACE FIORELLA Has the PT tested + for MRSA If YES, has PT been informed?: No Medical Necessity Reason Pt with a Central, PICC or Fol: No Subjective Review of Systems Patient is a 49-year-old male with a past medical history of coronary artery disease , DE x3 with questionable history of 1 drug-eluting stent, congestive heart failure, hyperlipidemia, COPD, CVA x3, DVT, PE, seizures, CKD sickle cell anemia, schizophrenia, recently diagnosed right upper lung mass on biopsy showed lung cancer in [place] presented to the ER with a chief complaint of chest pain. Reported he started to have sudden onset chest pain today, substernal, squeezing chest tightness in character, nonradiating and occurred at rest following which patient came to the hospital for further evaluation. Patient denied shortness of breath, palpitations, nausea, vomiting. Denies acidity, reflux, dysphagia, fever, chills. Past medical history: coronary artery disease , DE x3 with a 1 drug-eluting stent, congestive heart failure, hyperlipidemia, COPD, CVA x3, DVT, PE, seizures, CKD sickle cell anemia, schizophrenia, recently diagnosed right upper lung mass on biopsy showed lung cancer in [place] Past surgical history: PCI, inferior vena cava filter placed more than 10 years ago (CT abdomen in the records from 2018 shows IVC filter present but later imaging done in 2022 does not report anything about IVC filter) Social history: Patient apparently was a heavy smoker but is trying to come quit and currently smokes 3-4 cigarettes every day, denies alcohol or any other drug use Home medications: Eliquis 5 mg b.i.d., atorvastatin 20 mg, Lasix 40 mg, carvedilol 12.5 b.i.d., diltiazem 120 mg extended release, lacosamide 100 mg b.i.d., quetiapine 400 mg HS, phenytoin 100 mg t.i.d., nifedipine 30 mg daily Patient seen and examined at the bedside. Patient is complaining of chest pain and shortness of breaths. Patient reports: No new complaints, Feels better Objective vital signs Vital Sign Date Time Temp Pulse Resp B/P (MAP) Pulse Ox O2 Delivery O2 Flow Rate FiO2 08/27/24 13:00 97.7 67 20 117/90 (99) 99 97.7 08/27/24 10:25 Room Air* 0 21 Total Intake and Output 08/26/24 08/26/24 08/27/24 15:00 23:00 07:00 Intake Total 800 ml Balance 800 ml medications Current Medications Medications Dose Ordered Sig/Татьяна Route Start Time Stop Time Status Last Admin Dose Admin Morphine Sulfate 2 mg Q30M PRN IV 08/27/24 04:00 Phenytoin Sodium 100 mg Q8HR PO 08/27/24 06:00 08/27/24 12:59 100 MG Nifedipine 30 mg DAILY PO 08/28/24 10:00 Carvedilol 6.25 mg Q12HR PO 08/27/24 10:00 08/27/24 09:56 6.25 MG Quetiapine Fumarate 400 mg HS PO 08/27/24 22:00 Morphine Sulfate 2 mg Q6HPRN PRN IV 08/27/24 04:00 08/27/24 11:25 2 MG Enoxaparin Sodium 90 mg Q12HR SC 08/27/24 10:00 08/27/24 09:54 90 MG Pantoprazole Sodium 40 mg DAILY IV 08/27/24 10:00 08/27/24 09:53 40 MG Atorvastatin Calcium 40 mg HS PO 08/28/24 22:00 Albuterol 2.5 mg Q8HR NEB 08/27/24 14:00 Ipratropium [place] 0.5 mg Q8HR NEB 08/27/24 14:00 Methylprednisolone Sodium Succinate 40 mg DAILY IV 08/28/24 10:00 Azithromycin 500 mg DAILY PO 08/27/24 10:00 08/27/24 09:53 500 MG Clopidogrel Bisulfate 75 mg DAILY PO 08/27/24 10:00 08/27/24 11:23 75 MG Diagnostic Test (Pha) 1 strip ACHS 08/27/24 17:00 Insulin Human Regular HS SC 08/27/24 22:00 Insulin Human Regular AC SC 08/27/24 17:00 Dextrose 50 ml UD PRN IV 08/27/24 14:00 Lorazepam 2 mg Q5MINP PRN IV 08/27/24 15:15 Examination General Appearance: Alert, Oriented X3, Cooperative, No acute distress HEENT: Atraumatic, PERRLA, EOMI, Mucous membrane moist/pink Respiratory: Bilateral mild rhonchi Cardiovascular: Regular rate, Normal S1, Normal S2, No murmurs, no chest wall tenderness Abdominal: Normal bowel sounds, Soft, No tenderness, No hepatospenomegaly, No masses Extremities: No clubbing, No cyanosis, No edema, Normal pulses, No tenderness/swelling Skin: No rashes, No breakdown, No significant lesion Neuro: Normal gait, Normal speech, Strength at 5/5 X4 ext, Normal tone, Sensation intact, Cranial nerves 3-12 NL, Reflexes 2+ Psych/Mental Status: Mental status NL, Mood NL laboratory and microbiology Laboratory Tests 08/26/24 20:45 Test 08/26/24 20:45 Range/Units Serum Glucose 99 74-106 mg/dL Labs and/or images reviewed: Labs reviewed by me, Image(s) reviewed by me Problem List/Assessment/Plan Problem List/Assessment/Plan Acute COPD exacerbation Chest pain, likely due to musculoskeletal /costochondritis Ruled out ACS H/O coronary artery disease H/O DE, questionable PCI with a stent Hypertensive heart disease with a probable heart failure preserved ejection fraction H/o DVT and PE H/o PE, s/p IVC filter ( ? Whether it was removed ) Recently diagnosed right upper lung mass (biopsy done in [place]) DYLLAN on CKD likely due to VMN H/o seizure disorder H/o sickle cell anemia Normocytic hypochromic anemia * EKGs shows normal sinus rhythm with no significant ST or T-wave changes * Serial trop I and BNP is were within normal limits * Echocardiogram shows LVEF 40% with no significant valve abnormalities * Doppler ultrasound shows no DVT * Head CT scan shows acute intracranial abnormality * Chest x-ray shows right upper zone opacities possibly cancer Plan/recommendation * Empiric antibiotic of azithromycin * Solu-Medrol * Breathing treatment * Fluid * Continue home meds DIET: Diabetic diet DVT PROPHYLAXIS: Therapeutic dose of Lovenox GI PROPHYLAXIS:: Protonix CODE STATUS: Goal of care discussed for more than 18 minutes, full code DISPOSITION: Telemetry Patient's status and plan discussed with the patient. Case discussed with Dr. Monroe. Plan discussed with: Patient, Other (RN) My Orders My Orders Orders - BRIJESH WALLACE RESFRAN Procedure Category Date Status Time Clopidogrel Bisulfate PHA 08/27/24 In Process (Plavix) 10:00 Glucose Blood PHA 08/27/24 In Process (Accu-Chek Comfort 17:00 Insulin R (Human) PHA 08/27/24 In Process (Insulin R) 22:00 Insulin R (Human) PHA 08/27/24 In Process (Insulin R) 17:00 Dextrose 50% Syringe PHA 08/27/24 In Process 14:00 Soft Diet DIET 08/27/24 Transmitted Dinner Lorazepam 2mg/Ml Inj PHA 08/27/24 In Process (Ativan Inj) 15:15 Date of Service: Aug 27, 2024 Billing Provider: MOHAMUD MNOROE MD Common Visit Codes: [id number] INP/OBS CARE(HIGH) BRIJESH WALLACE RESDIENT Aug 27, 2024 16:09 MOHAMUD MONROE MD Aug 28, 2024 21:28
[2024-08-27] MEDS: ACCU-CHEK COMFORT CURVE STRIP VI SCH (16:54)
[2024-08-27] MEDS: InsuLIN REG 1unit/0.01ml Soln (100units/ml) SC SCH ×2 (16:55→21:24)
[2024-08-27] MEDS ORDERED: IBUPROFEN 400 MG TAB PO PRN (17:15)
[2024-08-27] MEDS: QUEtiapine FUMARATE 100 MG TAB PO SCH (21:23)
[2024-08-28] VITALS (7 sets, daily range): BP systolic 109–139; BP diastolic 75–96; PULSE 61–83; RESP 18–20; TEMP 36.6; O2SAT 95–98
[2024-08-28] MEDS: methylPREDNISolone SOD SUCC 40 MG/ML VL IV SCH (10:10)
[2024-08-28] MEDS: NIFEdipine ER 30 MG TAB PO SCH (10:11)
[2024-08-28 13:11] LABS: Basophils # (auto) 0 10 ^3/uL (0-0.2); Basophils % (auto) 0.4 % (0.0-2.0); Eosinophils # (auto) 0.1 10 ^3/uL (0-0.8); Hematocrit 37.3 % (41.0-53.0); Lymphocytes # (auto) 0.6 10 ^3/uL (0.4-5.4); Lymphocytes % (auto) 16.2 % (10.0-50.0); Mean Corpuscular Hemoglobin 27.2 pg (28.0-32.0); Mean Corpuscular Hgb Conc. 32.2 g/dL (32.0-36.0); Mean Corpuscular Volume 84.3 fL (80.0-100.0); Monocytes # (auto) 0.1 10 ^3/uL (0-1.3); Monocytes % (auto) 3.1 % (0.0-12.0); Neutrophils # (auto) 3.1 10 ^3/uL (1.6-8.6); Neutrophils % (auto) 77.3 % (37.0-80.0); Nucleated Red Blood Cells % 0.1 %; Platelet Count (auto) 181 10^3/uL (140-450); Red Blood Cells 4.42 10^6/uL (4.5-5.90); Red Cell Distribution Width 16.4 % (11.8-14.3)
[2024-08-28 13:23] LABS: Potassium 4.7 mmol/L (3.5-5.1); Sodium 143 mmol/L (136-145)
[2024-08-28 13:24] LABS: Anion Gap 6 (5-15); Carbon Dioxide 27 mmol/L (20-31)
[2024-08-28 13:25] LABS: Calcium 9.8 mg/dL (8.7-10.4); Chloride 110 mmol/L (98-107); INR 1.08 (0.9-1.15); Partial Thromboplastin Time 28.5 SEC (24.5-34.5); Prothrombin Time 11.4 sec (9.3-11.8)
[2024-08-28 13:29] LABS: BUN/Creatinine Ratio 17.9 (10.0-20.0); Blood Urea Nitrogen 20 mg/dL (9-23); Glucose 81 mg/dL (74-106)
--- NOTE | 2024-08-28 14:04 | DVHDSRES ---
Discharge Summary Date of Admission Resident Creating Document: BRIJESH WALLACE RESDIENT Aug 27, 2024 at 03:55 Date of Discharge: Aug 28, 2024 Admitting Diagnosis Chest pain Labs/Diagnostic Data: Laboratory Results Test 08/28/24 12:49 08/27/24 21:21 08/27/24 17:01 08/27/24 05:33 White Blood Count 4.0 10^3/uL (4.4-10.8) Red Blood Count 4.42 10^6/uL (4.5-5.90) Hemoglobin 12.0 g/dL (13.5-17.5) Hematocrit 37.3 % (41.0-53.0) Mean Corpuscular Volume 84.3 fL (80.0-100.0) Mean Corpuscular Hemoglobin 27.2 pg (28.0-32.0) Mean Corpuscular Hemoglobin Concent 32.2 g/dL (32.0-36.0) Red Cell Distribution Width 16.4 % (11.8-14.3) Platelet Count 181 10^3/uL (140-450) Mean Platelet Volume 7.6 fL (6.9-10.8) Neutrophils (%) (Auto) 77.3 % (37.0-80.0) Lymphocytes (%) (Auto) 16.2 % (10.0-50.0) Monocytes (%) (Auto) 3.1 % (0.0-12.0) Eosinophils (%) (Auto) 3.0 % (0.0-7.0) Basophils (%) (Auto) 0.4 % (0.0-2.0) Neutrophils # (Auto) 3.1 10 ^3/uL (1.6-8.6) Lymphocytes # (Auto) 0.6 10 ^3/uL (0.4-5.4) Monocytes # (Auto) 0.1 10 ^3/uL (0-1.3) Eosinophils # (Auto) 0.1 10 ^3/uL (0-0.8) Basophils # (Auto) 0 10 ^3/uL (0-0.2) Nucleated Red Blood Cells 0.1 % Reticulocyte Count (auto) 0.92 % (0.5-1.5) Prothrombin Time 11.4 sec (9.3-11.8) Prothrombin Time INR 1.08 (0.9-1.15) Activated Partial Thromboplast Time 28.5 SEC (24.5-34.5) Sodium Level 143 mmol/L (136-145) Potassium Level 4.7 mmol/L (3.5-5.1) Chloride Level 110 mmol/L (98-107) Carbon Dioxide Level 27 mmol/L (20-31) Anion Gap 6 (5-15) Blood Urea Nitrogen 20 mg/dL (9-23) Creatinine 1.12 mg/dL (0.700-1.30) Glomerular Filtration Rate Calc 80 mL/min (>90) BUN/Creatinine Ratio 17.9 (10.0-20.0) Serum Glucose 81 mg/dL (74-106) Calcium Level 9.8 mg/dL (8.7-10.4) POC Glucose 106 mg/dl (70-106) Stool Occult Blood Negative (Negative) Stool Occult Blood Sample #3 (Negative) Influenza Type A Antigen Negative (Negative) Influenza Type B Antigen Negative (Negative) SARS-CoV-2 Antigen (Rapid) Negative (NEGATIVE) Test 08/27/24 05:20 08/27/24 04:25 08/26/24 21:52 08/26/24 20:45 Urine Color Light-yellow (Yellow) Urine Clarity Clear (Clear) Urine pH 5.5 (5.0-9.0) Urine Specific [place] 1.024 (1.001-1.035) Urine Protein Negative (Negative) Urine Ketones Negative (Negative) Urine Blood 2+ /uL (Negative) Urine Nitrite Negative (Negative) Urine Bilirubin Negative (Negative) Urine Urobilinogen Normal mg/dL (Negative) Urine Leukocyte Esterase Negative /uL (Negative) Urine RBC 141 /hpf (0 - 3) Urine Microscopic WBC 2 /HPF (0-3) Urine Squamous Epithelial Cells Few /hpf (<5) Urine Bacteria None seen /hpf (None Seen) Urine Glucose Normal mg/dL (Normal) Urine Opiates Screen Neg (NEGATIVE) Urine Fentanyl Screen Neg (NEGATIVE) Urine Barbiturates Screen Neg (NEGATIVE) Urine Phencyclidine Screen Neg (NEGATIVE) Urine Amphetamines Screen Neg (NEGATIVE) Urine Benzodiazepines Screen Neg (NEGATIVE) Urine Cocaine Screen Neg (NEGATIVE) Urine Cannabinoids Screen Neg (NEGATIVE) Iron Level 39 ug/dL (65-175) Total Iron Binding Capacity 321 ug/dL (250-425) Percent Iron Saturation 12.1 % (20-55) Ferritin 21.9 ng/mL (22-322) Troponin I High Sensitivity 5 ng/L (</=54) Total Bilirubin 0.2 mg/dL (0.2-1.0) Aspartate Amino Transferase (AST) 16 U/L (<34) Alanine Aminotransferase (ALT) 10 U/L (7-40) Alkaline Phosphatase 87 U/L (46-116) Total Protein 7.0 g/dL (5.7-8.2) Albumin 4.0 g/dL (3.2-4.8) Test 08/26/24 04:25 Phenytoin (Dilantin) Level < 2.0 ug/mL (10-20) Other Laboratory Tests 08/28/24 12:49 Brief Hx & Hospital Course: Patient is a 49-year-old male with a past medical history of coronary artery disease , [place] x3 with questionable history of 1 drug-eluting stent, congestive heart failure, hyperlipidemia, COPD, CVA x3, DVT, PE, seizures, CKD sickle cell anemia, schizophrenia, recently diagnosed right upper lung mass on biopsy showed lung cancer in [place] presented to the ER with a chief complaint of chest pain. Reported he started to have sudden onset chest pain today, substernal, squeezing chest tightness in character, nonradiating and occurred at rest following which patient came to the hospital for further evaluation. Patient denied shortness of breath, palpitations, nausea, vomiting. Denies acidity, reflux, dysphagia, fever, chills. Past medical history: coronary artery disease , [place] x3 with a 1 drug-eluting stent, congestive heart failure, hyperlipidemia, COPD, CVA x3, DVT, PE, seizures, CKD sickle cell anemia, schizophrenia, recently diagnosed right upper lung mass on biopsy showed lung cancer in [place] Past surgical history: PCI, inferior vena cava filter placed more than 10 years ago (CT abdomen in the records from 2018 shows IVC filter present but later imaging done in 2022 does not report anything about IVC filter) Social history: Patient apparently was a heavy smoker but is trying to come quit and currently smokes 3-4 cigarettes every day, denies alcohol or any other drug use Home medications: Eliquis 5 mg b.i.d., atorvastatin 20 mg, Lasix 40 mg, carvedilol 12.5 b.i.d., diltiazem 120 mg extended release, lacosamide 100 mg b.i.d., quetiapine 400 mg HS, phenytoin 100 mg t.i.d., nifedipine 30 mg daily Hospital course: The patient admitted at the line of COPD exacerbation. The patient was started on empiric antibiotic of azithromycin, IV Solu-Medrol, IV fluid, breathing treatment. EKGs showed normal sinus rhythm with no significant ST or T-wave changes. Serial troponin and BNP were within normal limits. Echocardiogram showed LVEF 40% with no significant valve abnormalities. Doppler ultrasound of lower limb shows no DVT. Head CT scan showed no acute intracranial abnormalities. During hospital course, the patient home medicine were continued. On 08/28/24, the patient was feeling better since admission discharge plan discussed with the patient and the patient discharged home. Discharge plan: Follow up with the PCP within 1 week of the discharge. Tablet prednisone 40 mg daily for 3 days Tablet azithromycin 500 mg daily for 3 days Continue home meds Condition at Discharge: Good Final Diagnosis/Problems List Acute COPD exacerbation Chest pain, likely due to musculoskeletal /costochondritis Ruled out ACS H/O coronary artery disease H/O [place], questionable PCI with a stent Hypertensive heart disease with a probable heart failure preserved ejection fraction H/o DVT and PE H/o PE, s/p IVC filter ( ? Whether it was removed ) Recently diagnosed right upper lung mass (biopsy done in [place]) DYLLAN on CKD likely due to VMN H/o seizure disorder H/o sickle cell anemia Normocytic hypochromic anemia Discharge Disposition: Home Discharge Statement: "Patient was advised to return to the ER or call 911 if any headaches, dizziness, shortness of breath, chest pain, abdominal pain, bleeding, fevers, or worsening of medical condition. Patient was counseled about treatment plan, medications, possible side effects, patientverbalized understanding. All questions were answered to the best of my ability. This discharge took greater then 30 minutes in planning, reviewing documentation, counseling the patient, and discussing with other team members." ASSESSMENT ASSESSMENT Assessment BRIJESH WALLACE Aug 28, 2024 14:04
[2024-08-28] MEDS ORDERED: AZIT500T66 PO (14:21)
[2024-08-28] MEDS ORDERED: PRED1SOL29 PO (14:21)
[2024-08-28] MEDS ORDERED: ATORVASTATIN 20 MG TAB PO SCH (22:00)
== END 2024-08-28 16:22 | disposition home or self-care (01) | DRG 205 ==
LOC: ER 20:32 → TELE-EAST 22:30 → OVERFLOW 08-27 03:55 → TELE-EAST 08-27 09:05
PROVIDERS: ADMIT Student in an Organized Health Care Education/Training Program; ATTEND Student in an Organized Health Care Education/Training Program
DX: M94.0 Chondrocostal junction syndrome [Tietze] (principal); N17.0 Acute kidney failure with tubular necrosis; J44.1 Chronic obstructive pulmonary disease with (acute) exacerbation; Z59.00 Homelessness unspecified; Z20.822 Contact with and (suspected) exposure to COVID-19; D50.9 Iron deficiency anemia, unspecified; G40.909 Epilepsy, unspecified, not intractable, without status epilepticus; I25.10 Atherosclerotic heart disease of native coronary artery without angina pectoris; E11.9 Type 2 diabetes mellitus without complications; E78.5 Hyperlipidemia, unspecified; F17.210 Nicotine dependence, cigarettes, uncomplicated; F20.9 Schizophrenia, unspecified; I11.0 Hypertensive heart disease with heart failure; I50.9 Heart failure, unspecified; Z88.0 Allergy status to penicillin; Z88.8 Allergy status to other drugs, medicaments and biological substances; Z91.040 Latex allergy status; Z86.718 Personal history of other venous thrombosis and embolism; Z79.01 Long term (current) use of anticoagulants; Z85.118 Personal history of other malignant neoplasm of bronchus and lung; Z86.711 Personal history of pulmonary embolism; Z86.73 Personal history of transient ischemic attack (TIA), and cerebral infarction without residual deficits; Z79.899 Other long term (current) drug therapy; Z79.84 Long term (current) use of oral hypoglycemic drugs; Z82.49 Family history of ischemic heart disease and other diseases of the circulatory system
CPT/HCPCS: 36415; 70450; 71045; 80048; 80053; 80185; 80307; 81001; 82270; 82728; 82962; 83540; 83550; 84484; 85025; 85045; 85610; 85730; 87426; 87804; 93005; 93306; 93970; 94640; 96372; 96374; 96375; 99291; G0378; J2470

== ENCOUNTER 2024-08-30 18:19 | Inpatient (IN) | payer OTHER, MEDICAID ==
[~2024-08-30] VITALS: Ht 193 cm; Wt 95.9 kg
[2024-08-30] MEDS: SODIUM CHLORIDE 0.9% 1,000 ML IV ONE (05:00)
[2024-08-30] MEDS: SODIUM CHLOR 0.9% PF (SALINE LOCK) 10ML VIAL/SYR IV SCH (05:00)
[~2024-08-30 18:19] MED LIST changes: +AZIT500T66 PO; +PRED1SOL29 PO
--- NOTE | 2024-08-30 18:35 | ED.PDOC ---
History of Present Illness HPI Comments 49-year-old male came to ER via EMS for syncope. Patient has history of hypertension, diabetes, DVT, PE, CAD, sickle cell disease and COPD. Patient discharged here 2 days ago for COPD exacerbation. Patient was walking at the side of the street where he had a syncopal attack and hit his head. Blood sugar on scene was 56, patient however refused the oral glucose that was being given by paramedics. Patient states he has not eaten recently, because his landlord does not cook. Patient also complaining of abdominal pain with bouts of nausea and vomiting. 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 Allergies: Coded Allergies: Acetaminophen (Verified Allergy, Unknown, 12/03/22) Aspirin (Unverified Allergy, Unknown, 03/30/14) Latex (Verified Allergy, Unknown, 12/03/22) Nitroglycerin (Verified Allergy, Unknown, 12/10/13) PO CAUSES RASH Penicillin G (Verified Allergy, Unknown, 12/10/13) Uncoded Allergies: IV CONTRAST (Allergy, Unknown, 01/19/19) Home Meds Active Scripts Azithromycin (Azithromycin) 500 Mg Tab, 500 MG PO DAILY for 3 Days, #3 TAB Prov:HEBRIJESH BECKER RESDIENT 08/28/24 Prednisolone Sodium Phosphate (Prednisolone Sodium Phosp) 20 Mg/5 Ml Norma, 40 MG PO DAILY for 3 Days, #6 ML Prov:BRIJESH WALLACE RESDIENT 08/28/24 Quetiapine Fumerate (QUETIAPINE FUMARATE) 100 Mg Tab, 400 MG PO HS for 90 Days, #360 TAB Prov:HAWA LR MD 12/05/22 Metoprolol Tartrate (Lopressor) 25 Mg Tb, 25 MG PO BID for 90 Days, #180 TAB Prov:HAWA LR MD 12/05/22 Gabapentin (Gabapentin) 100 Mg Cap, 100 MG PO BID for 90 Days, #180 CAP Prov:HAWA LR MD 12/05/22 Atorvastatin Calcium (ATORVASTATIN CALCIUM) 20 Mg Tab, 20 MG PO HS for 90 Days, #90 TAB Prov:HAWA LR MD 12/05/22 Apixaban Base (ELIQUIS) 5 Mg Tab, 5 MG PO BID for 90 Days, #180 TAB Prov:HAWA LR MD 12/05/22 Reported Medications Potassium Chloride (Klor-Con M20) 20 Meq Tab, 20 MEQ PO DAILY, TAB 01/20/19 Nifedipine (PROCARDIA CAPSULE) 10 Mg Cp, 10 MG PO, CAP 01/20/19 Phenytoin Sodium (DILANTIN CAPSULE) 100 Mg Cp, 100 MG PO TID for 30 Days 01/20/19 Furosemide (Lasix) 40 Mg Tab, 40 MG PO DAILY, TAB 01/20/19 Nitroglycerin (Nitroglycerin Transdermal) 0.2 Mg/Hr Dis, 0.2 MG TD DAILY PRN for FOR CHEST PAIN, DIS 07/20/14 Information Source: Patient, Emergency Med Personnel Mode of Arrival: EMS Severity: Moderate Timing: Minutes Duration: Since onset Prehospital treatment: Accucheck Review of Systems REVIEW OF SYSTEMS: No fever, no chills, or fatigue HEENT: No sore throat, no earache, no congestion, no neck pain. Cardiac: No chest pain. No palpitations. (+) syncope Lungs: No shortness of breath, no cough. GI: (+) nausea, (+) vomiting, no diarrhea, no constipation, (+) abdominal pain : No dysuria, frequency, or urgency. No hematuria. Musculoskeletal: No joint pain , no joint swelling, no extremity edema. Skin: No rash, no itching. Neuro: No headache, no dizziness, no weakness, (+) fainting Vital Signs Vital Signs Date Time Temp Pulse Resp B/P (MAP) Pulse Ox O2 Delivery O2 Flow Rate FiO2 08/30/24 19:35 18 95 Room Air* 0 21 08/30/24 18:51 98.5 97 138/86 (103) 98.5 Physical Exam General: Awake, alert and oriented. No acute distress. Skin: Skin in warm, dry and intact. Appropriate color for ethnicity. Nailbeds pink with no cyanosis. HEENT: The head is normocephalic and atraumatic. Conjunctivae are clear without exudates or hemorrhage. Sclera is non-icteric. EOM are intact. No signs of nystagmus. Eyelids are normal in appearance without swelling or lesions. Oral mucosa is pink and moist Neck: The neck is supple with normal range of motion. No JVD. Cardiac: Heart rate and rhythm are normal. No murmurs, gallops, or rubs are auscultated. Respiratory: No signs of respiratory distress. Positive wheezes throughout lung comer Abdominal: Abdomen is soft, generally-tender without distention. Bowel sounds are present and normoactive in all four quadrants. Extremities: Bilateral lower extremity edema Neurological: The patient is awake, alert and oriented to person, place, and time with normal speech. Speech is clear. There is no facial asymmetry. Psychiatric: Appropriate mood and affect. Good judgement and insight. No visual or auditory hallucinations. Past Medical History PAST MEDICAL HISTORY: Anemia, CAD, Cancer, CHF, CKF, COPD, CVA, DM, High Lipids, HIV, HTN, [place], PE, Schizophrenia, Seizures Past Medical History (Other): DVT, sickle cell disease Surgical History: Denies all surgeries Family History Family History: Family hx of heart kassandra Social History Smoker: Cigarettes, Less Than 1 Pack/Day Alcohol: Denies ETOH Use Drugs: Denies Drug Use Lives In: Assisted Care Was a procedure done? Was a procedure done?: No Differential Dx Considerations may include: Differential diagnoses considered include but are not limited to cardiac structural disease, arrhythmia, acute coronary syndrome, orthostasis, pulmonary embolism, dissection, seizure, basilar stroke, other. X-Ray, Labs, Meds, VS Vital Signs Date Time Temp Pulse Resp B/P (MAP) Pulse Ox O2 Delivery O2 Flow Rate FiO2 08/30/24 19:35 18 95 Room Air* 0 21 08/30/24 18:51 98.5 97 18 138/86 (103) 100 98.5 Lab Test 08/30/24 19:25 08/30/24 18:53 Range/Units White Blood Count 7.2 # 4.4-10.8 10^3/uL Red Blood Count 4.23 L 4.5-5.90 10^6/uL Hemoglobin 11.6 L 13.5-17.5 g/dL Hematocrit 35.1 L 41.0-53.0 % Mean Corpuscular Volume 82.9 80.0-100.0 fL Mean Corpuscular Hemoglobin 27.4 L 28.0-32.0 pg Mean Corpuscular Hemoglobin Concent 33.0 32.0-36.0 g/dL Red Cell Distribution Width 15.8 H 11.8-14.3 % Platelet Count 212 140-450 10^3/uL Mean Platelet Volume 7.6 6.9-10.8 fL Neutrophils (%) (Auto) 71.7 37.0-80.0 % Lymphocytes (%) (Auto) 18.2 10.0-50.0 % Monocytes (%) (Auto) 7.6 0.0-12.0 % Eosinophils (%) (Auto) 1.8 0.0-7.0 % Basophils (%) (Auto) 0.7 0.0-2.0 % Neutrophils # (Auto) 5.2 1.6-8.6 10 ^3/uL Lymphocytes # (Auto) 1.3 0.4-5.4 10 ^3/uL Monocytes # (Auto) 0.5 0-1.3 10 ^3/uL Eosinophils # (Auto) 0.1 0-0.8 10 ^3/uL Basophils # (Auto) 0.1 0-0.2 10 ^3/uL Nucleated Red Blood Cells 0.0 % Prothrombin Time 11.8 9.3-11.8 sec Prothrombin Time INR 1.13 0.9-1.15 Sodium Level 144 136-145 mmol/L Potassium Level 4.4 3.5-5.1 mmol/L Chloride Level 110 H 98-107 mmol/L Carbon Dioxide Level 26 20-31 mmol/L Anion Gap 8 5-15 Blood Urea Nitrogen 26 H 9-23 mg/dL Creatinine 1.66 H 0.700-1.30 mg/dL Glomerular Filtration Rate Calc 50 >90 mL/min BUN/Creatinine Ratio 15.7 10.0-20.0 Serum Glucose 128 H 74-106 mg/dL Calcium Level 9.5 8.7-10.4 mg/dL Total Bilirubin 0.2 0.2-1.0 mg/dL Aspartate Amino Transferase (AST) 16 <34 U/L Alanine Aminotransferase (ALT) 10 7-40 U/L Alkaline Phosphatase 84 46-116 U/L Troponin I High Sensitivity 4 </=54 ng/L B-Type Natriuretic Peptide Pending Total Protein 7.0 5.7-8.2 g/dL Albumin 4.1 3.2-4.8 g/dL Urine Color Yellow Yellow Urine Clarity Clear Clear Urine pH 5.5 5.0-9.0 Urine Specific [place] 1.025 1.001-1.035 Urine Protein 1+ H Negative Urine Ketones Trace Negative Urine Blood Negative Negative /uL Urine Nitrite Negative Negative Urine Bilirubin Negative Negative Urine Urobilinogen 2 H Negative mg/dL Urine Leukocyte Esterase Negative Negative /uL Urine RBC 4 0 - 3 /hpf Urine Microscopic WBC 2 0-3 /HPF Urine Squamous Epithelial Cells Few <5 /hpf Urine Bacteria None seen None Seen /hpf Urine Hyaline Casts Mod 0 - 2 /lpf Urine Mucus Few None Seen Urine Glucose 2+ H Normal mg/dL Current Medications Medications (Trade) Dose Ordered Sig/Татьяна Route Start Time Stop Time Status Last Admin Albuterol (Ventolin Medneb) 5 mg ONCE ONCE NEB 08/30/24 18:45 08/30/24 19:02 DC 08/30/24 19:35 CT BRAIN WITHOUT CONTRAST HISTORY: Syncope, head injury, headache TECHNIQUE: Axial scans were obtained from the skull base through the vertex without contrast. Sagittal and coronal reformats were generated. One or more of the following radiation dose reduction techniques were used for this examination: automated exposure control, adjustment of the mA and/or kV according to patient size, use of iterative reconstruction technique. COMPARISON: CT HEAD WITHOUT CONTRAST on DOS: 08/26/24, CT HEAD WITHOUT CONTRAST on DOS: 11/30/22 FINDINGS: The cerebral parenchyma appears to be normal configuration and attenuation. The ventricles, cisterns, and sulci appear age-appropriate. There is no evidence for acute territorial infarct, hemorrhage, or mass effect. The orbits are normal. The visualized paranasal sinuses and mastoid air cells are clear. The soft tissues and osseous structures appear within normal limits. IMPRESSION: 1. No acute territorial infarct, intracranial hemorrhage, or mass effect. Time of 1ST Reevaluation: 18:28 Reevaluation 1ST: Unchanged Patient Education/Counseling: Prognosis Family Education/Counseling: No Family Present SEPSIS Sepsis Screen Physician Orders Fall Precautions Initiated (08/30/24 18:26) B-Type Natriuretic Peptide (08/30/24 18:26) Saline Lock (08/30/24 18:26) Orthostatic Vital Signs (08/30/24 ) Director Of Religious Life (08/30/24 ) Electrocardigram (08/30/24 18:26) Troponin-I Hs (08/30/24 19:26) Troponin-I Hs (08/30/24 21:26) Electrocardigram (08/30/24 19:26) Electrocardigram (08/30/24 21:26) Head Without Contrast (08/30/24 18:26) Vital Signs Date Time Temp Pulse Resp B/P (MAP) Pulse Ox O2 Delivery O2 Flow Rate FiO2 08/30/24 19:35 18 95 Room Air* 0 21 08/30/24 18:51 98.5 97 18 138/86 (103) 100 98.5 Laboratory Tests Test 08/30/24 19:25 White Blood Count 7.2 10^3/uL (4.4-10.8) # Medications Medications Dose Ordered Sig/Татьяна Route Start Time Stop Time Status Last Admin Dose Admin Albuterol 5 mg ONCE ONCE NEB 08/30/24 18:45 08/30/24 19:02 DC 08/30/24 19:35 Departure 1 Departure Time of Disposition: 18:36 Impression: Primary Impression: Syncope Additional Impressions: Hypoglycemia Closed head injury COPD (chronic obstructive pulmonary disease) DYLLAN (acute kidney injury) Disposition: ADMITTED INPATIENT Condition: Stable Comments 49-year-old male with past medical history of coronary artery disease , [place] x3 with, congestive heart failure, hyperlipidemia, COPD, CVA x3, DVT, PE, seizures, CKD sickle cell anemia, schizophrenia, lung cancer, anticoagulated with Eliquis presents to the emergency department after syncopal episode resulting in head injury. Patient was found to be hypoglycemic by EMS. Patient continues to feel dizzy and lightheaded. Patient treated in the ED with dextrose, IV fluids, albuterol. Patient admitted to hospitalist service for further treatment, evaluation and monitoring. Extensive evaluation was performed in attempt to identify or rule out: (See differential diagnosis section) The following tests were ordered, and results were reviewed by me and discussed with patient: (See diagnostic results section) The following test were independently interpreted by me: N/A I reviewed and agreed with the following test results read by other providers: N/A I reviewed the following notes from the pt's past medical encounters: Admission 08/27/2024 for chest pain Additional information was gathered from interviewing the following independent historians: EMS personnel Discussion of management or test interpretation with external physician/other qualified health health care aide: N/A Addressed one or more chronic illnesses with severe exacerbation, progression, or side effects of treatment: COPD, an acute or chronic illness that poses a threat to life or bodily function: Syncope, hypoglycemia Decision regarding hospitalization or escalation of hospital level of care: Risk and benefits of admission for further treatment of patient's condition was cons idered. Due to patient's current clinical condition, high risk of decline and poor outcome if discharged and need for further inpatient management and monitoring, patient will be admitted to the hospital. Discussed with patient. Drug therapy requiring intensive monitoring for toxicity: IV dextrose Parenteral controlled substances: N/A Decision regarding elective major surgery with identified patient or procedure risk factors: N/A Decision regarding emergency major surgery: N/A Decision not to resuscitate or to de-escalate care because of poor prognosis: N/A Diagnosis or treatment significantly limited by social determinants of health: N/A Critical Care Note Critical Care Time?: No Stability Stability form required: No Heart Score Heart Score: Heart Score Response (Comments) Value History Moderate Suspicious 1 EKG Repolarization Disturb 1 Age 45-64 1 Risk Factors >3 or Hx ASHD 2 Troponin Normal limit 0 Total 5 I personally scribed for JIN KHAN MD ([email or web address]) on 08/30/24 at 18:34. Electronically submitted by Tanmay Veloz ([email or web address]). I personally scribed for JNI KHAN MD ([email or web address]) on 08/30/24 at 19:35. Electronically submitted by Tanmay Veloz ([email or web address]). JIN KHAN MD Aug 30, 2024 18:34
[2024-08-30 19:15] LABS: Urine Bacteria None Seen /hpf (None Seen)
--- NOTE | 2024-08-30 19:26 | DVH ---
CT BRAIN WITHOUT CONTRAST HISTORY: Syncope, head injury, headache TECHNIQUE: Axial scans were obtained from the skull base through the vertex without contrast. Sagitta l and coronal reformats were generated. One or more of the following radiation dose reduction techniq ues were used for this examination: automated exposure control, adjustment of the mA and/or kV accord ing to patient size, use of iterative reconstruction technique. COMPARISON: CT HEAD WITHOUT CONTRAST on DOS: 08/26/24, CT HEAD WITHOUT CONTRAST on DOS: 11/30/22 FINDINGS: The cerebral parenchyma appears to be normal configuration and attenuation. The ventricles, cisterns , and sulci appear age-appropriate. There is no evidence for acute territorial infarct, hemorrhage, or mass effect. The orbits are normal. The visualized paranasal sinuses and mastoid air cells are clear. The soft t issues and osseous structures appear within normal limits. IMPRESSION: 1. No acute territorial infarct, intracranial hemorrhage, or mass effect.
[2024-08-30 19:35] LABS: Urine Blood Negative /uL (Negative); Urine Clarity Clear (Clear); Urine Color Yellow (Yellow); Urine Hyaline Cast MOD /lpf (0 - 2); Urine Mucus FEW (None Seen); Urine Protein, UAD 1+ (Negative); Urine Specific Gravity 1.025 (1.001-1.035); Urine Squamous Epithelial Cell FEW /hpf (<5); Urine Urobilinogen 2 mg/dL (Negative); Urine WBC 2 /HPF (0-3); Urine pH 5.5 (5.0-9.0)
[2024-08-30] MEDS: ALBUTEROL SULF 2.5 MG/0.5ML(0.5%) NEB SOLN NEB ONE (19:35)
[2024-08-30 19:39] LABS: Basophils # (auto) 0.1 10 ^3/uL (0-0.2); Basophils % (auto) 0.7 % (0.0-2.0); Eosinophils # (auto) 0.1 10 ^3/uL (0-0.8); Eosinophils % (auto) 1.8 % (0.0-7.0); Hematocrit 35.1 % (41.0-53.0); Hemoglobin 11.6 g/dL (13.5-17.5); Lymphocytes # (auto) 1.3 10 ^3/uL (0.4-5.4); Lymphocytes % (auto) 18.2 % (10.0-50.0); Mean Corpuscular Hemoglobin 27.4 pg (28.0-32.0); Mean Corpuscular Volume 82.9 fL (80.0-100.0); Monocytes # (auto) 0.5 10 ^3/uL (0-1.3); Monocytes % (auto) 7.6 % (0.0-12.0); Neutrophils # (auto) 5.2 10 ^3/uL (1.6-8.6); Neutrophils % (auto) 71.7 % (37.0-80.0); Platelet Count (auto) 212 10^3/uL (140-450); Red Blood Cells 4.23 10^6/uL (4.5-5.90); Red Cell Distribution Width 15.8 % (11.8-14.3); White Blood Cell 7.2 10^3/uL (4.4-10.8)
[2024-08-30 19:55] LABS: Alanine Aminotransferase 10 U/L (7-40); Albumin 4.1 g/dL (3.2-4.8); Alkaline Phosphatase 84 U/L (46-116); Anion Gap 8 (5-15); Aspartate Aminotransferase 16 U/L (<34); BUN/Creatinine Ratio 15.7 (10.0-20.0); Calcium 9.5 mg/dL (8.7-10.4); Carbon Dioxide 26 mmol/L (20-31); INR 1.13 (0.9-1.15); Potassium 4.4 mmol/L (3.5-5.1); Prothrombin Time 11.8 sec (9.3-11.8); Sodium 144 mmol/L (136-145)
[2024-08-30 19:56] LABS: Bilirubin, Total 0.2 mg/dL (0.2-1.0); Blood Urea Nitrogen 26 mg/dL (9-23); Chloride 110 mmol/L (98-107); Glucose 128 mg/dL (74-106)
[2024-08-30] MEDS ORDERED: DOCUSATE SOD 100 MG CAP PO PRN (21:15)
[2024-08-30] MEDS ORDERED: DEXTROSE (50%) 50ML SYRG IV PRN (21:15)
[2024-08-30 21:25] VITALS: BP 138/86; PULSE 88; RESP 18; TEMP 98.5; O2SAT 95
--- NOTE | 2024-08-30 22:03 | DVHHP2 ---
History of Present Illness Reason for Visit: Syncope History of Present Illness The patient is a 49-year-old male with multiple past medical history including Coronary artery disease, anemia, COPD, HIV, PE, and seizures who presented to [facility] ED for evaluation of syncopal episode. Patient was discharged here 2 days ago for COPD exacerbation. Patient reports he was working [place] the site of the street when he had a syncopal episode and hit his head, associated with abdominal pain, nausea, and vomiting. When EMS arrived on the scene, patient's blood glucose was 56, but refused the oral glucose was given. Patient was seen and evaluated in the ED, laboratory data shows WBC 7.2, hemo globin 11.6, hematocrit 35.1, glucose 212, sodium 144, potassium 4.4, BUN 26, creatinine 1.66, glucose 128, BNP 21.66, troponin 4, blood pressure 130/86, heart rate 96, temperature 98.5 F, O2 saturation 95% on room air. On my assessment, patient denied chest pain, headache, no dizziness, no blurry vision, no diaphoresis, no shortness of breath, no nausea, no vomiting, no fever, no chills. Patient was admitted for further evaluation and medical management. Past Medical History Anemia, CAD, Cancer, CHF, CKF, COPD, CVA, DM, High Lipids, HIV, HTN, AZ, PE, Schizophrenia, Seizures, DVT, sickle cell disease Past Surgical History Denies all surgeries Family History Reviewed, noncontributory to the management of this case. Past Social History The patient lives at assisted care living facility, smokes cigarettes less than 1 pack per day, denies alcohol or illicit drugs abuse. Review of Systems Constitutional: Yes: Weakness; No: Fever, Chills, Sweats, Malaise, Other Eyes: No: Pain, Vision change, Conjunctivae inflammation, Eyelid inflammation, Other, Redness ENT: No: Ear pain, Ear discharge, Nose pain, Nose discharge, Nose congestion, Mouth pain, Mouth swelling, Throat pain, Throat swelling, Other Respiratory: No: Cough, Dry, Shortness of breath, SOB with excertion, Wheezing, Hemoptysis, Pleuritic Pain, Sputum, Wheezing, Other Cardiovascular: Other (Syncope); No: Chest Pain, Palpitations, Orthopnea, Paroxysmal Noc. Dyspnea, Edema, Lt Headedness Gastrointestinal: No: Nausea, Vomiting, Abdominal Pain, Diarrhea, Constipation, Melena, Hematochezia, Other Genitourinary: No Dysuria, No Frequency, No Incontinence, No Hematuria, No Retention, No Other Musculoskeletal: No: other, neck pain, shoulder pain, arm pain, back pain, hand pain, leg pain, foot pain Skin: No: Rash, Lesions, Jaundice, Bruising, Other Neurological: No: Weakness, Numbness, Incoordination, Change in speech, Confusion, Seizures, Other Allergies: Coded Allergies: Acetaminophen (Verified Allergy, Unknown, 12/03/22) Aspirin (Unverified Allergy, Unknown, 03/30/14) Latex (Verified Allergy, Unknown, 12/03/22) Nitroglycerin (Verified Allergy, Unknown, 12/10/13) PO CAUSES RASH Penicillin G (Verified Allergy, Unknown, 12/10/13) Uncoded Allergies: IV CONTRAST (Allergy, Unknown, 01/19/19) Medications Current Medications Medications Dose Ordered Sig/Татьяна Route Start Time Stop Time Status Last Admin Dose Admin Metoprolol Tartrate 25 mg BID PO 08/30/24 22:00 UNV Phenytoin Sodium 100 mg Q8HR PO 08/30/24 22:00 UNV Atorvastatin Calcium 20 mg HS PO 08/30/24 22:00 UNV Albuterol 2.5 mg Q4HPRN PRN NEB 08/30/24 21:15 UNV Apixaban 5 mg BID PO 08/30/24 22:00 UNV Diagnostic Test (Pha) 1 strip ACHS 08/30/24 22:00 UNV Insulin Human Regular ACHS SC 08/30/24 22:00 UNV Dextrose 50 ml UD PRN IV 08/30/24 21:15 UNV Sodium Chloride 10 ml Q8HR IV 08/30/24 22:00 UNV Ondansetron HCl 4 mg Q4HP PRN IV 08/30/24 21:15 UNV Docusate Sodium 100 mg BIDPRN PRN PO 08/30/24 21:15 UNV Exam Vital Signs Vital Signs Date Time Temp Pulse Resp B/P (MAP) Pulse Ox O2 Delivery O2 Flow Rate FiO2 08/30/24 21:25 98.5 88 18 138/86 95 21 98.5 08/30/24 19:35 Room Air* 0 General Appearance: Alert, Oriented X3, Cooperative, No acute distress HEENT: Atraumatic, PERRLA, EOMI, Mucous membr. moist/pink Respiratory: Normal air movement Cardiovascular: Regular rate, Normal S1, Normal S2, No murmurs Abdominal: Normal bowel sounds, Soft, No tenderness, No hepatospenomegaly, No masses Extremities: No clubbing, No cyanosis, No edema, Normal pulses, No tenderness/swelling Skin: No rashes, No breakdown, No significant lesion Neuro: Normal speech, Normal tone, Sensation intact, Cranial nerves 3-12 NL, Reflexes 2+, Other (Generalized weakness) Psych/Mental Status: Mental status NL, Mood NL Labs/Xrays Labs Test 08/30/24 20:48 08/30/24 19:25 08/30/24 18:53 Range/Units Troponin I High Sensitivity 5 </=54 ng/L White Blood Count 7.2 # 4.4-10.8 10^3/uL Red Blood Count 4.23 L 4.5-5.90 10^6/uL Hemoglobin 11.6 L 13.5-17.5 g/dL Hematocrit 35.1 L 41.0-53.0 % Mean Corpuscular Volume 82.9 80.0-100.0 fL Mean Corpuscular Hemoglobin 27.4 L 28.0-32.0 pg Mean Corpuscular Hemoglobin Concent 33.0 32.0-36.0 g/dL Red Cell Distribution Width 15.8 H 11.8-14.3 % Platelet Count 212 140-450 10^3/uL Mean Platelet Volume 7.6 6.9-10.8 fL Neutrophils (%) (Auto) 71.7 37.0-80.0 % Lymphocytes (%) (Auto) 18.2 10.0-50.0 % Monocytes (%) (Auto) 7.6 0.0-12.0 % Eosinophils (%) (Auto) 1.8 0.0-7.0 % Basophils (%) (Auto) 0.7 0.0-2.0 % Neutrophils # (Auto) 5.2 1.6-8.6 10 ^3/uL Lymphocytes # (Auto) 1.3 0.4-5.4 10 ^3/uL Monocytes # (Auto) 0.5 0-1.3 10 ^3/uL Eosinophils # (Auto) 0.1 0-0.8 10 ^3/uL Basophils # (Auto) 0.1 0-0.2 10 ^3/uL Nucleated Red Blood Cells 0.0 % Prothrombin Time 11.8 9.3-11.8 sec Prothrombin Time INR 1.13 0.9-1.15 Sodium Level 144 136-145 mmol/L Potassium Level 4.4 3.5-5.1 mmol/L Chloride Level 110 H 98-107 mmol/L Carbon Dioxide Level 26 20-31 mmol/L Anion Gap 8 5-15 Blood Urea Nitrogen 26 H 9-23 mg/dL Creatinine 1.66 H 0.700-1.30 mg/dL Glomerular Filtration Rate Calc 50 >90 mL/min BUN/Creatinine Ratio 15.7 10.0-20.0 Serum Glucose 128 H 74-106 mg/dL Calcium Level 9.5 8.7-10.4 mg/dL Total Bilirubin 0.2 0.2-1.0 mg/dL Aspartate Amino Transferase (AST) 16 <34 U/L Alanine Aminotransferase (ALT) 10 7-40 U/L Alkaline Phosphatase 84 46-116 U/L B-Type Natriuretic Peptide 21.86 0-100 pg/mL Total Protein 7.0 5.7-8.2 g/dL Albumin 4.1 3.2-4.8 g/dL Urine Color Yellow Yellow Urine Clarity Clear Clear Urine pH 5.5 5.0-9.0 Urine Specific [place] 1.025 1.001-1.035 Urine Protein 1+ H Negative Urine Ketones Trace Negative Urine Blood Negative Negative /uL Urine Nitrite Negative Negative Urine Bilirubin Negative Negative Urine Urobilinogen 2 H Negative mg/dL Urine Leukocyte Esterase Negative Negative /uL Urine RBC 4 0 - 3 /hpf Urine Microscopic WBC 2 0-3 /HPF Urine Squamous Epithelial Cells Few <5 /hpf Urine Bacteria None seen None Seen /hpf Urine Hyaline Casts Mod 0 - 2 /lpf Urine Mucus Few None Seen Urine Glucose 2+ H Normal mg/dL PATIENT: LEVI AMOS LACCT: [id number] UNIT: [id number] : 1975 LOC: ER ROOM / BED: / AGE / SEX: 49 / M ADM STATUS: REG ER SERVICE 1826 ORDERING PHYSICIAN: JIN KHAN MD PROCEDURE(s): HWOCT - HEAD WITHOUT CONTRAST REASON: Syncope, head injury, headache ORDER NUMBER(s): [id number], ACCESSION NUMBER(s): [id number] CT BRAIN WITHOUT CONTRAST HISTORY: Syncope, head injury, headache TECHNIQUE: Axial scans were obtained from the skull base through the vertex without contrast. Sagittal and coronal reformats were generated. One or more of the following radiation dose reduction techniques were used for this examination: automated exposure control, adjustment of the mA and/or kV according to patient size, use of iterative reconstruction technique. COMPARISON: CT HEAD WITHOUT CONTRAST on DOS: 08/26/24, CT HEAD WITHOUT CONTRAST on DOS: 11/30/22 FINDINGS: The cerebral parenchyma appears to be normal configuration and attenuation. The ventricles, cisterns, and sulci appear age-appropriate. There is no evidence for acute territorial infarct, hemorrhage, or mass effect. The orbits are normal. The visualized paranasal sinuses and mastoid air cells are clear. The soft tissues and osseous structures appear within normal limits. IMPRESSION: 1. No acute territorial infarct, intracranial hemorrhage, or mass effect. Assessment/Plan Assessment/Plan Syncope DYLLAN (acute kidney injury) Hypoglycemia Closed head injury COPD (chronic obstructive pulmonary disease) Plan 1. Admit to telemetry unit 2. Breathing treatment 3. Pain control management 4. Management of fluids and electrolytes 5. Consultation for hospitalist 6. Diagnostic tests head CT 7. DVT prophylaxis on Eliquis 8. Repeat labs CBC, CMP in a.m. 9. Continue with current medical management 10. Treatment plan discussed with patient and RN. Patient verbalized understanding. Plan discussed with: Patient, Other (RN) My Orders Orders - HORACIO VILLARREAL DNP Procedure Category Date Status Time Consistent DIET 08/31/24 Transmitted Carb(Ccho)Diabetes Breakfast Metoprolol Tartrate PHA 08/30/24 Logged Tablet (Lopressor Ta 22:00 Phenytoin (Dilantin) LAB 08/30/24 In Process 21:08 Phenytoin Capsule PHA 08/30/24 Logged (Dilantin Capsule) 22:00 Atorvastatin (Lipitor) PHA 08/30/24 Logged 22:00 Albuterol Medneb PHA 08/30/24 Logged (Ventolin Medneb) 21:15 Apixaban (Eliquis) PHA 08/30/24 Logged 22:00 Glucose Blood PHA 08/30/24 Logged (Accu-Chek Comfort 22:00 Insulin R (Human) PHA 08/30/24 Logged (Insulin R) 22:00 Dextrose 50% Syringe PHA 08/30/24 Logged 21:15 Allergies GIL 08/30/24 In Process 21:08 Code Status CODE 08/30/24 Transmitted 21:08 Sodium Chloride Lock PHA 08/30/24 Logged (Saline Lock Ns) 22:00 Oxygen Per Hour RT 08/30/24 Transmitted 21:08 Ondansetron Hcl PHA 08/30/24 Logged (Zofran) 21:15 Docusate Sodium PHA 08/30/24 Logged Capsule (Colace 21:15 Complete Blood Count LAB 08/31/24 Verified 04:00 Comprehensive LAB 08/31/24 Verified Metabolic Panel 04:00 Condition: Serious GIL 08/30/24 In Process 21:08 Bedrest With Bathroom GIL 08/30/24 In Process Privileg 21:08 Sequential GIL 08/30/24 In Process Compression Device Problem List: (1) Syncope (2) DYLLAN (acute kidney injury) (3) Hypoglycemia (4) Closed head injury (5) COPD (chronic obstructive pulmonary disease) Date of Service: Aug 30, 2024 Billing Provider: HORACIO VILLARREAL DNP Common Visit Codes: [id number] INP/OBS CARE (HIGH) HORACIO VILLARREAL DNP Aug 30, 2024 22:03
[2024-08-30] MEDS ORDERED: NITROGLYCERIN 0.4 MG SL TAB SL PRN (22:15)
[2024-08-30] MEDS ORDERED: MORPHINE SULFATE INJ 2 MG/ml SYRG IV PRN (22:15)
[2024-08-30] MEDS: METOPROLOL TARTRATE 25 MG TAB PO SCH (22:42)
[2024-08-30] MEDS: PHENYTOIN SODIUM 100 MG CAP PO SCH (22:53)
[2024-08-30] MEDS: ATORVASTATIN 20 MG TAB PO SCH (22:53)
[2024-08-30] MEDS: APIXABAN 5 MG TAB PO SCH (22:54)
[2024-08-30] MEDS: ACCU-CHEK COMFORT CURVE STRIP VI SCH (22:59)
[2024-08-30] MEDS: InsuLIN REG 1unit/0.01ml Soln (100units/ml) SC SCH (22:59)
[2024-08-31 04:21] LABS: Basophils # (auto) 0 10 ^3/uL (0-0.2); Basophils % (auto) 0.6 % (0.0-2.0); Eosinophils # (auto) 0.2 10 ^3/uL (0-0.8); Eosinophils % (auto) 2.5 % (0.0-7.0); Hemoglobin 12.1 g/dL (13.5-17.5); Lymphocytes # (auto) 1.7 10 ^3/uL (0.4-5.4); Mean Corpuscular Hemoglobin 27.7 pg (28.0-32.0); Mean Corpuscular Hgb Conc. 33.7 g/dL (32.0-36.0); Mean Corpuscular Volume 82.3 fL (80.0-100.0); Monocytes # (auto) 0.5 10 ^3/uL (0-1.3); Neutrophils # (auto) 4.8 10 ^3/uL (1.6-8.6); Neutrophils % (auto) 66.9 % (37.0-80.0); Platelet Count (auto) 222 10^3/uL (140-450); Red Blood Cells 4.37 10^6/uL (4.5-5.90); Red Cell Distribution Width 16.5 % (11.8-14.3); White Blood Cell 7.2 10^3/uL (4.4-10.8)
[2024-08-31 04:39] LABS: Alanine Aminotransferase 11 U/L (7-40); Albumin 4.5 g/dL (3.2-4.8); Alkaline Phosphatase 88 U/L (46-116); Anion Gap 9 (5-15); Aspartate Aminotransferase 15 U/L (<34); BUN/Creatinine Ratio 18.9 (10.0-20.0); Carbon Dioxide 27 mmol/L (20-31); Chloride 106 mmol/L (98-107); Glucose 101 mg/dL (74-106); Potassium 4.1 mmol/L (3.5-5.1); Sodium 142 mmol/L (136-145); Total Protein 7.7 g/dL (5.7-8.2)
[2024-08-31 04:41] LABS: Bilirubin, Total 0.2 mg/dL (0.2-1.0); Blood Urea Nitrogen 31 mg/dL (9-23)
[2024-08-31] MEDS: KETOROLAC TROMETH 30 MG/ML 1ML VIAL IM ONE (04:49)
[2024-08-31 05:35] VITALS: PULSE 70; RESP 20; O2SAT 96
[2024-08-31 07:00] VITALS: O2SAT 95
[2024-08-31 10:00] VITALS: O2SAT 99
--- NOTE | 2024-08-31 12:17 | DVHPN2 ---
Subjective The patient is seen and examined at bedside. The patient complained of pain. The patient wanted to restart his home medication which is Lasix. Patient also one pain medication. Reviewed: Care Plan, H&P, Labs, Medications, Previous Orders, Radiology Changes from previous H/P or p: No Changes Eyes: No Pain, No Vision change, No Conjunctivae inflammation, No Eyelid inflammation, No Other, No Redness ENT: No Ear pain, No Ear discharge, No Nose pain, No Nose discharge, No Nose congestion, No Mouth pain, No Mouth swelling, No Throat pain, No Throat swelling, No Other Cardiovascular: No Chest Pain, No Palpitations, No Orthopnea, No Paroxysmal Noc. Dyspnea, No Edema, No Lt Headedness; Other (Syncope) Respiratory: No Cough, No Dry, No Shortness of breath, No SOB with excertion, No Wheezing, No Hemoptysis, No Pleuritic Pain, No Sputum, No Other Gastrointestinal: No Nausea, No Vomiting, No Abdominal Pain, No Diarrhea, No Constipation, No Melena, No Hematochezia, No Other Genitourinary: No Dysuria, No Frequency, No Incontinence, No Hematuria, No Retention, No Other Musculoskeletal: No other, No neck pain, No shoulder pain, No arm pain, No back pain, No hand pain, No leg pain, No foot pain Skin: No Rash, No Lesions, No Jaundice, No Bruising, No Other Objective Vitals Vital Signs Date Time Temp Pulse Resp B/P (MAP) Pulse Ox O2 Delivery O2 Flow Rate FiO2 08/31/24 11:16 75 130/86 08/31/24 10:00 14 96 08/31/24 07:00 97.7 97.7 08/31/24 05:35 Room Air* 0 21 General Appearance: Alert, Cooperative HEENT: Atraumatic, PERRLA, EOMI, Mucous membr. moist/pink Neck: Supple Lungs: Clear to auscultation, Normal air movement Cardiovascular: Regular rate, Normal S1, Normal S2, No murmurs, Gallops, Rubs Abdomen: Normal bowel sounds, Soft, No tenderness Neuro: Cranial nerves 3-12 NL Psych/Mental Status: Other (Agitated) Medications Current Medications Medications Dose Ordered Sig/Татьяна Route Start Time Stop Time Status Last Admin Dose Admin Metoprolol Tartrate 25 mg BID PO 08/30/24 22:00 08/31/24 11:16 25 MG Phenytoin Sodium 100 mg Q8HR PO 08/30/24 22:00 08/31/24 06:43 100 MG Atorvastatin Calcium 20 mg HS PO 08/30/24 22:00 08/30/24 22:53 20 MG Albuterol 2.5 mg Q4HPRN PRN NEB 08/30/24 21:15 Apixaban 5 mg BID PO 08/30/24 22:00 08/31/24 11:16 5 MG Diagnostic Test (Pha) 1 strip ACHS 08/30/24 22:00 08/31/24 11:31 1 STRIP Insulin Human Regular ACHS SC 08/30/24 22:00 08/31/24 11:33 2 UNITS Dextrose 50 ml UD PRN IV 08/30/24 21:15 Sodium Chloride 10 ml Q8HR IV 08/30/24 22:00 Ondansetron HCl 4 mg Q4HP PRN IV 08/30/24 21:15 Docusate Sodium 100 mg BIDPRN PRN PO 08/30/24 21:15 Nitroglycerin 0.4 mg Q5MINP PRN SL 08/30/24 22:15 Hold Morphine Sulfate 2 mg Q30M PRN IV 08/30/24 22:15 Laboratory Results Laboratory Tests 08/31/24 03:48 Chemistry Test 08/30/24 19:25 08/31/24 03:48 Albumin 4.1 g/dL (3.2-4.8) 4.5 g/dL (3.2-4.8) Calcium Level 9.5 mg/dL (8.7-10.4) 9.0 mg/dL (8.7-10.4) Total Protein 7.0 g/dL (5.7-8.2) 7.7 g/dL (5.7-8.2) Coagulation Test 08/30/24: Prothrombin Time 11.8 sec (9.3-11.8) Prothrombin Time INR 1.13 (0.9-1.15) Cardiac Markers Test 08/30/24: B-Type Natriuretic Peptide 21.86 pg/mL (0-100) LFT Test 08/30/24 19:25 08/31/24 03:48 Alanine Aminotransferase (ALT) 10 U/L (7-40) 11 U/L (7-40) Alkaline Phosphatase 84 U/L (46-116) 88 U/L (46-116) Aspartate Amino Transferase (AST) 16 U/L (<34) 15 U/L (<34) Total Bilirubin 0.2 mg/dL (0.2-1.0) 0.2 mg/dL (0.2-1.0) Urinalysis Test 08/30/24 18:53 Urine Color Yellow (Yellow) Urine Clarity Clear (Clear) Urine pH 5.5 (5.0-9.0) Urine Specific [place] 1.025 (1.001-1.035) Urine Protein 1+ (Negative) H Urine Ketones Trace (Negative) Urine Blood Negative /uL (Negative) Urine Nitrite Negative (Negative) Urine Bilirubin Negative (Negative) Urine Urobilinogen 2 mg/dL (Negative) H Urine Leukocyte Esterase Negative /uL (Negative) Urine RBC 4 /hpf (0 - 3) Urine Microscopic WBC 2 /HPF (0-3) Urine Squamous Epithelial Cells Few /hpf (<5) Urine Bacteria None seen /hpf (None Seen) Urine Hyaline Casts Mod /lpf (0 - 2) Urine Mucus Few (None Seen) Urine Glucose 2+ mg/dL (Normal) H Labs and/or images reviewed: Labs reviewed by me Assessment/Plan Assessment/Plan Syncope DYLLAN (acute kidney injury) Hypoglycemia Closed head injury COPD (chronic obstructive pulmonary disease) HIV positive History PE Continuing current management. We will restart his Lasix. I will order urine drug screen. I will consult neurologist. So far CT head is negative. This medical document was created using an electronic medical record system with [employer] direct computerized dictation system. Although this document has been carefully reviewed, there may still be some phonetic and typographical errors. These areas are purely typographical due to imperfections of the software programs, and do not reflect any compromise in the patient's medical care. Plan discussed with: Patient Date of Service: Aug 31, 2024 Billing Provider: CAROLINE DURAN MD Common Visit Codes: [id number] INP/OBS CARE(HIGH) CAROLINE DURAN MD Aug 31, 2024 12:17
[2024-08-31] MEDS: GABAPENTIN 100 MG CAP PO SCH (16:00)
[2024-08-31 16:38] LABS: Cocaine Screen, Urine Neg (NEGATIVE)
[2024-08-31 16:39] LABS: Amphetamine Screen, Urine Neg (NEGATIVE); Barbiturate Scree,Urine Neg (NEGATIVE); Benzodiazephine Screen, Urine Neg (NEGATIVE); Cannabinoid Screen, Urine Neg (NEGATIVE); Opiate Scree,Urine Neg (NEGATIVE); Phencyclidine Screen, Urine Neg (NEGATIVE)
[2024-08-31] MEDS ORDERED: QUET400T13 PO (18:17)
[2024-08-31 18:52] VITALS: PULSE 70; RESP 18; O2SAT 96; O2SAT 98
[2024-08-31] MEDS: ALBUTEROL SULF 2.5 MG/0.5ML(0.5%) NEB SOLN NEB PRN (18:52)
--- NOTE | 2024-08-31 18:55 | DVHINCON2 ---
Date of service: Aug 31, [address] Elmore Reason for Consultation Syncope History of Present Illness Mr. Napoles is a 49 years old gentleman with a history of hypertension, diabetes, dyslipidemia, coronary artery disease, heart attack, congestive heart failure, chronic kidney failure, stroke, DVT/pulm emboli status post Manjinder filter insertion, schizophrenia, the patient was brought to the [facility] on 08/30/24 with a chief complaint of syncope, but the patient also has a history of seizure disorder. At this time, he alert, fully oriented, he provided the following history I saw him on 12/01/2022 for seizure On 08/30/2024, when he was walking on the street, he developed dizziness/lightheadedness, nausea, hot feeling, code sweating, chest pain, and then he fell down and passed out for unknown duration, but was very brief, and he woke up with clear sensorium. He reports having spells of dizziness/lightheadedness when he was walking or standing for three weeks, he reports poor hydration, but he keeps eating well He has seizure all his life with tongue biting and incontinence, he is completely amnesia about his seizure symptoms but was said to have grand mal seizure. He has aura in that he spelled metal odor. He has seizure attack once a while, but he has aura almost once weekly. He is on Dilantin 100 mg t.i.d. and sometimes he forgets to take it He reports having four strokes, one happened around 05/2024, in that he had weakness left arm than leg, the patient was seen in the local hospital and was s aid to have stroke without MRI/CT or other specific tests. In a three strokes, he had numbness starting in the left 4th and 5th finger, spreading to the whole left upper extremity. He is on Eliquis for chronic DVT UDS, 08/31/2024: Negative Dilantin, 12/01/2022: 2.1, 08/30/2024: 2.2 Urinalysis, 08/30/2024: WBC: Two, urine leukocyte esterase: Negative WBC/Hb/PLT/MCV, 08/31/2024: 7.2/12.1/222/82.3 PT/INR/PTT, 08/30/2024: 11.10/1012/ BUNs/CR, 12/01/2022: 22/1.32, 08/31/2024: 31/1.64 Liver function tests, 08/31/2024: Normal TG/CHO L/LDL/HDL, 11/2022: 85/221/150/55 Extremity venous study, 08/27/2024: No acute right or left femoropopliteal venous thrombosis. 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 CT head, 08/30/2024: No acute territorial infarct, intracranial hemorrhage, or mass effect Past Medical History Hypertension, diabetes, dyslipidemia, coronary artery disease, heart attack, congestive heart failure, chronic kidney failure, stroke, DVT/pulm emboli status post Manjinder filter insertion, schizophrenia, seizure Past Surgical History Tumor resected from the back [place] filter insertion Family History: Cancer Cardiovascular disease G8 MOTHER G8 FATHER Chronic obstructive lung disease (situation) Family history: Diabetes mellitus Family history: Hypertension Family history: Thyroid disorder No Family History of: Family history: Cardiovascular disease Family History Hypertension, diabetes, thyroid disorder, heart disease, COPD Social History Smoker: Cigarettes, Less Than 1 Pack/Day Alcohol: Denies ETOH Use Drugs: Denies Drug Use Lives In: Home Allergies: Coded Allergies: Acetaminophen (Verified Allergy, Unknown, 12/03/22) Aspirin (Unverified Allergy, Unknown, 03/30/14) Latex (Verified Allergy, Unknown, 12/03/22) Nitroglycerin (Verified Allergy, Unknown, 12/10/13) PO CAUSES RASH Penicillin G (Verified Allergy, Unknown, 12/10/13) Uncoded Allergies: IV CONTRAST (Allergy, Unknown, 01/19/19) Home Meds Active Scripts Azithromycin (Azithromycin) 500 Mg Tab, 500 MG PO DAILY for 3 Days, #3 TAB Prov:BRIJESH WALLACE RESDIENT 08/28/24 Prednisolone Sodium Phosphate (Prednisolone Sodium Phosp) 20 Mg/5 Ml Norma, 40 MG PO DAILY for 3 Days, #6 ML Prov:BRIJESH WALLACE RESDIENT 08/28/24 Quetiapine Fumerate (QUETIAPINE FUMARATE) 100 Mg Tab, 400 MG PO HS for 90 Days, #360 TAB Prov:HAWA LR MD 12/05/22 Metoprolol Tartrate (Lopressor) 25 Mg Tb, 25 MG PO BID for 90 Days, #180 TAB Prov:HAWA LR MD 12/05/22 Gabapentin (Gabapentin) 100 Mg Cap, 100 MG PO BID for 90 Days, #180 CAP Prov:HAWA LR MD 12/05/22 Atorvastatin Calcium (ATORVASTATIN CALCIUM) 20 Mg Tab, 20 MG PO HS for 90 Days, #90 TAB Prov:HAWA LR MD 12/05/22 Apixaban Base (ELIQUIS) 5 Mg Tab, 5 MG PO BID for 90 Days, #180 TAB Prov:HAWA LR MD 12/05/22 Reported Medications Quetiapine Fumerate (QUETIAPINE FUMARATE) 400 Mg Tab, 400 MG PO HS for 30 Days, MG 08/31/24 Potassium Chloride (Klor-Con M20) 20 Meq Tab, 20 MEQ PO DAILY, TAB 01/20/19 Nifedipine (PROCARDIA CAPSULE) 10 Mg Cp, 10 MG PO, CAP 01/20/19 Phenytoin Sodium (DILANTIN CAPSULE) 100 Mg Cp, 100 MG PO TID for 30 Days 01/20/19 Furosemide (Lasix) 40 Mg Tab, 40 MG PO DAILY, TAB 01/20/19 Nitroglycerin (Nitroglycerin Transdermal) 0.2 Mg/Hr Dis, 0.2 MG TD DAILY PRN for FOR CHEST PAIN, DIS 07/20/14 Current Medications Current Medications Medications (Trade) Dose Ordered Sig/Татьяна Route PRN Reason Start Time Stop Time Status Last Admin Metoprolol Tartrate (Lopressor Tablet) 25 mg BID PO 08/30/24 22:00 08/31/24 11:16 Phenytoin Sodium (Dilantin Capsule) 100 mg Q8HR PO 08/30/24 22:00 08/31/24 14:03 Atorvastatin Calcium (Lipitor) 20 mg HS PO 08/30/24 22:00 08/30/24 22:53 Albuterol (Ventolin Medneb) 2.5 mg Q4HPRN PRN NEB SHORTNESS OF BREATH 08/30/24 21:15 Apixaban (Eliquis) 5 mg BID PO 08/30/24 22:00 08/31/24 11:16 Diagnostic Test (Pha) (Accu-Chek Comfort Curve T) 1 strip ACHS 08/30/24 22:00 08/31/24 17:10 Insulin Human Regular (InsuLIN R) ACHS SC 08/30/24 22:00 08/31/24 11:33 Dextrose 50 ml UD PRN IV Blood Sugar LESS THAN 60 08/30/24 21:15 Sodium Chloride (Saline Lock Ns) 10 ml Q8HR IV 08/30/24 22:00 08/31/24 14:01 Ondansetron HCl (Zofran) 4 mg Q4HP PRN IV NAUSEA / VOMITING 08/30/24 21:15 Docusate Sodium (Colace Capsule) 100 mg BIDPRN PRN PO FOR CONSTIPATION 08/30/24 21:15 Nitroglycerin (Ntrostat Sublingual) 0.4 mg Q5MINP PRN SL FOR CHEST PAIN 08/30/24 22:15 Hold Morphine Sulfate 2 mg Q30M PRN IV FOR CHEST PAIN 08/30/24 22:15 Gabapentin (Neurontin Capsule) 100 mg BID PO 08/31/24 22:00 08/31/24 14:58 DC Gabapentin (Neurontin Capsule) 100 mg BID PO 08/31/24 15:00 08/31/24 16:00 Review of Systems As above, the other systems are negative Vital Signs Vital Signs Date Time Temp Pulse Resp B/P (MAP) Pulse Ox O2 Delivery O2 Flow Rate FiO2 08/31/24 18:30 67 21 124/85 (98) 98 08/31/24 07:00 Room Air* 0 21 08/31/24 07:00 97.7 97.7 Physical Exam GENERAL EXAM: General: the patient is well developed and nourished. No acute distress. HEENT: Normocephalic, neck is supple, no carotid bruits. No mass. RESPIRATORY: Normal respiratory effort with symmetrical lung expansion. Lungs clear to auscultation. CARDIOVASCULAR: Regular rate and rhythm with no murmurs. S1, S2. ABDOMEN: Soft, nontender, normal bowel sound NEUROLOGICAL: MENTAL STATUS: Awake and alert. Oriented to person, place, time and general circumstances. Not very good historian SPEECH, LANGUAGE, HIGHER CORTICAL FUNCTION: no aphasia or dysathria. CRANIAL NERVES: #2: Intact visual comer to confrontation. The optic discs were sharp. #3,4,6: Pupils are equal, round and reactive. EOMs full and conjugate. #5: Facial sensation intact in all three divisions bilaterally. Mandibular strength intact. #7: Facial muscles symmetrical and strength intact. #8: Hearing grossly normal to voice. #9,10: Uvula and soft palate rise in the midline. Swallow and voice are normal. #11: Trapezius and sternomastoid strength intact bilaterally. #12: Tongue midline. No fasciculations or atrophy. SENSATION: Sensation to touch and pinprick is normal. MOTOR: Normal tone in the upper and lower extremity. Normal muscle bulk. No fasciculations. No abnormal movements or posturing. Muscle strength of the major groups in the upper extremities is 5/5. Muscle strength of the major groups in the lower extremities is 5/5. REFLEXES: Deep tendon reflexes normal and symmetrical. No pathological reflexes. CEREBELLAR/COORDINATION: Finger to nose and heel to sargent are normal bilaterally. GAIT/STATION: Unremarkable Labs/Diagnostic Data Labs Test 08/31/24 17:09 08/31/24 15:59 08/31/24 03:48 08/30/24 20:48 Range/Units POC Glucose 102 70-106 mg/dl Urine Opiates Screen Neg NEGATIVE Urine Fentanyl Screen Neg NEGATIVE Urine Barbiturates Screen Neg NEGATIVE Urine Phencyclidine Screen Neg NEGATIVE Urine Amphetamines Screen Neg NEGATIVE Urine Benzodiazepines Screen Neg NEGATIVE Urine Cocaine Screen Neg NEGATIVE Urine Cannabinoids Screen Neg NEGATIVE White Blood Count 7.2 4.4-10.8 10^3/uL Red Blood Count 4.37 L 4.5-5.90 10^6/uL Hemoglobin 12.1 L 13.5-17.5 g/dL Hematocrit 36.0 L 41.0-53.0 % Mean Corpuscular Volume 82.3 80.0-100.0 fL Mean Corpuscular Hemoglobin 27.7 L 28.0-32.0 pg Mean Corpuscular Hemoglobin Concent 33.7 32.0-36.0 g/dL Red Cell Distribution Width 16.5 H 11.8-14.3 % Platelet Count 222 140-450 10^3/uL Mean Platelet Volume 7.8 6.9-10.8 fL Neutrophils (%) (Auto) 66.9 37.0-80.0 % Lymphocytes (%) (Auto) 23.0 10.0-50.0 % Monocytes (%) (Auto) 7.0 0.0-12.0 % Eosinophils (%) (Auto) 2.5 0.0-7.0 % Basophils (%) (Auto) 0.6 0.0-2.0 % Neutrophils # (Auto) 4.8 1.6-8.6 10 ^3/uL Lymphocytes # (Auto) 1.7 0.4-5.4 10 ^3/uL Monocytes # (Auto) 0.5 0-1.3 10 ^3/uL Eosinophils # (Auto) 0.2 0-0.8 10 ^3/uL Basophils # (Auto) 0 0-0.2 10 ^3/uL Nucleated Red Blood Cells 0.0 % Sodium Level 142 136-145 mmol/L Potassium Level 4.1 3.5-5.1 mmol/L Chloride Level 106 98-107 mmol/L Carbon Dioxide Level 27 20-31 mmol/L Anion Gap 9 5-15 Blood Urea Nitrogen 31 H 9-23 mg/dL Creatinine 1.64 H 0.700-1.30 mg/dL Glomerular Filtration Rate Calc 50 >90 mL/min BUN/Creatinine Ratio 18.9 10.0-20.0 Serum Glucose 101 74-106 mg/dL Calcium Level 9.0 8.7-10.4 mg/dL Total Bilirubin 0.2 0.2-1.0 mg/dL Aspartate Amino Transferase (AST) 15 <34 U/L Alanine Aminotransferase (ALT) 11 7-40 U/L Alkaline Phosphatase 88 46-116 U/L Total Protein 7.7 5.7-8.2 g/dL Albumin 4.5 3.2-4.8 g/dL Troponin I High Sensitivity 5 </=54 ng/L Phenytoin (Dilantin) Level 2.2 L 10-20 ug/mL Test 08/30/24 19:25 08/30/24 18:53 Range/Units Prothrombin Time 11.8 9.3-11.8 sec Prothrombin Time INR 1.13 0.9-1.15 B-Type Natriuretic Peptide 21.86 0-100 pg/mL Urine Color Yellow Yellow Urine Clarity Clear Clear Urine pH 5.5 5.0-9.0 Urine Specific [place] 1.025 1.001-1.035 Urine Protein 1+ H Negative Urine Ketones Trace Negative Urine Blood Negative Negative /uL Urine Nitrite Negative Negative Urine Bilirubin Negative Negative Urine Urobilinogen 2 H Negative mg/dL Urine Leukocyte Esterase Negative Negative /uL Urine RBC 4 0 - 3 /hpf Urine Microscopic WBC 2 0-3 /HPF Urine Squamous Epithelial Cells Few <5 /hpf Urine Bacteria None seen None Seen /hpf Urine Hyaline Casts Mod 0 - 2 /lpf Urine Mucus Few None Seen Urine Glucose 2+ H Normal mg/dL Assessment What happened on 08/30/2024 was likely a syncope secondary to dehydration Grand mal seizure The three strokes starting with numbness in the left 4th 5th finger were likely partial simple seizure/May Chronic DVT Pulmonary emboli status post Manjinder filter insertion Plan/Recommendation Monitoring Supportive treatment Telemetry Ativan for seizure breakthrough Dilantin 300mg daily Eliquis 5 mg b.i.d. Lipitor 20 mg daily Syncope discussing discussed Regular sleep schedule to avoid sleep deprivation Avoid alcohol, street drug Use Dilantin 300 mg daily instead of 3 times a day to increase compliance Seizure triggers discussed Quit tobacco smoking Follow-up with his doctors on discharge NICOLE Prognosis: Poor This medical document was created using an electronic medical record system with [employer] dictation system. Although this document has been carefully reviewed, there may still be some phonetic and typographical errors. These areas are purely typographical due to imperfections of the software programs, and do not reflect any compromise in the patient's medical care. Plan discussed with: Patient, Other GLENDY MCINTOSH MD Aug 31, 2024 18:55
[2024-08-31 19:02] VITALS: PULSE 73; RESP 16; O2SAT 99
[2024-08-31] MEDS: PHENYTOIN SODIUM 100 MG CAP PO SCH (21:33)
[2024-08-31] MEDS ORDERED: GABAPENTIN 100 MG CAP PO SCH (22:00)
[2024-08-31 23:00] VITALS: BP 124/88; PULSE 66; RESP 17; TEMP 97.8; O2SAT 99
[2024-09-01] VITALS (10 sets, daily range): BP systolic 99–130; BP diastolic 64–75; PULSE 68–94; RESP 18–20; TEMP 98–98.8; O2SAT 94–99
[2024-09-01] MEDS: LORazepam 2MG/ML-1ML VIAL IV PRN
--- NOTE | 2024-09-01 14:04 | DVHPN2 ---
Subjective The patient is seen and examined at bedside. The patient complained of pain. The patient wanted to restart his home medication which is Lasix. Patient also one pain medication. Reviewed: Care Plan, H&P, Labs, Medications, Previous Orders, Radiology Changes from previous H/P or p: No Changes Eyes: No Pain, No Vision change, No Conjunctivae inflammation, No Eyelid inflammation, No Other, No Redness ENT: No Ear pain, No Ear discharge, No Nose pain, No Nose discharge, No Nose congestion, No Mouth pain, No Mouth swelling, No Throat pain, No Throat swelling, No Other Cardiovascular: No Chest Pain, No Palpitations, No Orthopnea, No Paroxysmal Noc. Dyspnea, No Edema, No Lt Headedness; Other (Syncope) Respiratory: No Cough, No Dry, No Shortness of breath, No SOB with excertion, No Wheezing, No Hemoptysis, No Pleuritic Pain, No Sputum, No Other Gastrointestinal: No Nausea, No Vomiting, No Abdominal Pain, No Diarrhea, No Constipation, No Melena, No Hematochezia, No Other Genitourinary: No Dysuria, No Frequency, No Incontinence, No Hematuria, No Retention, No Other Musculoskeletal: No other, No neck pain, No shoulder pain, No arm pain, No back pain, No hand pain, No leg pain, No foot pain Skin: No Rash, No Lesions, No Jaundice, No Bruising, No Other Objective Vitals Vital Signs Date Time Temp Pulse Resp B/P (MAP) Pulse Ox O2 Delivery O2 Flow Rate FiO2 09/01/24 10:21 74 112/74 09/01/24 10:00 99 Room Air* 0 21 09/01/24 08:00 18 09/01/24 05:00 98.0 98.0 Intake/Output Intake and Output 09/01/24 07:00 Intake Total 240 ml Balance 240 ml Intake Oral 240 ml # Voids 1 General Appearance: Alert, Cooperative HEENT: Atraumatic, PERRLA, EOMI, Mucous membr. moist/pink Neck: Supple Lungs: Clear to auscultation, Normal air movement Cardiovascular: Regular rate, Normal S1, Normal S2, No murmurs, Gallops, Rubs Abdomen: Normal bowel sounds, Soft, No tenderness Neuro: Cranial nerves 3-12 NL Psych/Mental Status: Other (Agitated) Medications Current Medications Medications Dose Ordered Sig/Татьяна Route Start Time Stop Time Status Last Admin Dose Admin Metoprolol Tartrate 25 mg BID PO 08/30/24 22:00 09/01/24 10:21 25 MG Atorvastatin Calcium 20 mg HS PO 08/30/24 22:00 08/31/24 22:25 20 MG Albuterol 2.5 mg Q4HPRN PRN NEB 08/30/24 21:15 08/31/24 18:52 2.5 MG Apixaban 5 mg BID PO 08/30/24 22:00 09/01/24 10:21 5 MG Diagnostic Test (Pha) 1 strip ACHS 08/30/24 22:00 09/01/24 11:57 1 STRIP Insulin Human Regular ACHS SC 08/30/24 22:00 08/31/24 11:33 2 UNITS Dextrose 50 ml UD PRN IV 08/30/24 21:15 Sodium Chloride 10 ml Q8HR IV 08/30/24 22:00 09/01/24 13:45 10 ML Ondansetron HCl 4 mg Q4HP PRN IV 08/30/24 21:15 Docusate Sodium 100 mg BIDPRN PRN PO 08/30/24 21:15 Nitroglycerin 0.4 mg Q5MINP PRN SL 08/30/24 22:15 Hold Morphine Sulfate 2 mg Q30M PRN IV 08/30/24 22:15 Gabapentin 100 mg BID PO 08/31/24 15:00 09/01/24 10:21 100 MG Phenytoin Sodium 300 mg HS PO 08/31/24 20:30 08/31/24 21:33 300 MG Lorazepam 1 mg Q5MINP PRN IV 08/31/24 20:30 09/01/24 08:45 1 MG Laboratory Results Laboratory Tests 08/31/24 03:48 Urinalysis Test 08/30/24 18:53 Urine Color Yellow (Yellow) Urine Clarity Clear (Clear) Urine pH 5.5 (5.0-9.0) Urine Specific [place] 1.025 (1.001-1.035) Urine Protein 1+ (Negative) H Urine Ketones Trace (Negative) Urine Blood Negative /uL (Negative) Urine Nitrite Negative (Negative) Urine Bilirubin Negative (Negative) Urine Urobilinogen 2 mg/dL (Negative) H Urine Leukocyte Esterase Negative /uL (Negative) Urine RBC 4 /hpf (0 - 3) Urine Microscopic WBC 2 /HPF (0-3) Urine Squamous Epithelial Cells Few /hpf (<5) Urine Bacteria None seen /hpf (None Seen) Urine Hyaline Casts Mod /lpf (0 - 2) Urine Mucus Few (None Seen) Urine Glucose 2+ mg/dL (Normal) H Assessment/Plan Assessment/Plan Syncope DYLLAN (acute kidney injury) Hypoglycemia Closed head injury COPD (chronic obstructive pulmonary disease) HIV positive History PE Continuing current management. Continue Lasix. So far his kidney function is improved. Per patient he is homeless however refused to go back to where he lives which is a nursing home. cabinet worker had been in contact with the patient for any resources that he needs for placement or housing. This medical document was created using an electronic medical record system with [employer] dictation system. Although this document has been carefully reviewed, there may still be some phonetic and typographical errors. These areas are purely typographical due to imperfections of the software programs, and do not reflect any compromise in the patient's medical care. Plan discussed with: Patient My Orders Orders - CAROLINE DURAN MD Procedure Category Date Status Time Gabapentin Capsule PHA 08/31/24 In Process (Neurontin Capsule) 15:00 Mrsa Screen CROW 09/01/24 Uncollected 06:00 Education - Smoking GIL 09/01/24 In Process Cessation 01:21 * Smoking Cessation CONS 09/01/24 Transmitted Consult 01:21 Date of Service: Sep 01, 2024 Billing Provider: CAROLINE DRUAN MD Common Visit Codes: [id number] INP/OBS CARE(HIGH) CAROLINE DURAN MD Sep 01, 2024 14:04
[2024-09-01] MEDS: HYDROcodone-ACET 5/325MG TAB PO PRN (16:51)
[2024-09-01] MEDS: ONDANSETRON HCL 4 MG/2 ML VIAL IV PRN (22:56)
[2024-09-01] MEDS: QUEtiapine FUMARATE 100 MG TAB PO ONE (23:08)
[2024-09-02 06:33] VITALS: O2SAT 98
[2024-09-02 08:00] VITALS: PULSE 64
[2024-09-02 10:00] VITALS: O2SAT 98
[2024-09-02 13:00] VITALS: BP 126/82; PULSE 64; RESP 17; TEMP 97.6; O2SAT 100
[2024-09-02] MEDS ORDERED: PHEN1CAP38 PO (14:40)
--- NOTE | 2024-09-02 14:41 | DVHDS2 ---
Discharge Summary Date of Admission Aug 30, 2024 at 22:02 Date of Discharge: Sep 02, 2024 Labs/Diagnostic Data: Laboratory Results Test 09/02/24 10:44 08/31/24 15:59 08/31/24 03:48 08/30/24 20:48 POC Glucose 93 mg/dl (70-106) Urine Opiates Screen Neg (NEGATIVE) Urine Fentanyl Screen Neg (NEGATIVE) Urine Barbiturates Screen Neg (NEGATIVE) Urine Phencyclidine Screen Neg (NEGATIVE) Urine Amphetamines Screen Neg (NEGATIVE) Urine Benzodiazepines Screen Neg (NEGATIVE) Urine Cocaine Screen Neg (NEGATIVE) Urine Cannabinoids Screen Neg (NEGATIVE) White Blood Count 7.2 10^3/uL (4.4-10.8) Red Blood Count 4.37 10^6/uL (4.5-5.90) Hemoglobin 12.1 g/dL (13.5-17.5) Hematocrit 36.0 % (41.0-53.0) Mean Corpuscular Volume 82.3 fL (80.0-100.0) Mean Corpuscular Hemoglobin 27.7 pg (28.0-32.0) Mean Corpuscular Hemoglobin Concent 33.7 g/dL (32.0-36.0) Red Cell Distribution Width 16.5 % (11.8-14.3) Platelet Count 222 10^3/uL (140-450) Mean Platelet Volume 7.8 fL (6.9-10.8) Neutrophils (%) (Auto) 66.9 % (37.0-80.0) Lymphocytes (%) (Auto) 23.0 % (10.0-50.0) Monocytes (%) (Auto) 7.0 % (0.0-12.0) Eosinophils (%) (Auto) 2.5 % (0.0-7.0) Basophils (%) (Auto) 0.6 % (0.0-2.0) Neutrophils # (Auto) 4.8 10 ^3/uL (1.6-8.6) Lymphocytes # (Auto) 1.7 10 ^3/uL (0.4-5.4) Monocytes # (Auto) 0.5 10 ^3/uL (0-1.3) Eosinophils # (Auto) 0.2 10 ^3/uL (0-0.8) Basophils # (Auto) 0 10 ^3/uL (0-0.2) Nucleated Red Blood Cells 0.0 % Sodium Level 142 mmol/L (136-145) Potassium Level 4.1 mmol/L (3.5-5.1) Chloride Level 106 mmol/L (98-107) Carbon Dioxide Level 27 mmol/L (20-31) Anion Gap 9 (5-15) Blood Urea Nitrogen 31 mg/dL (9-23) Creatinine 1.64 mg/dL (0.700-1.30) Glomerular Filtration Rate Calc 50 mL/min (>90) BUN/Creatinine Ratio 18.9 (10.0-20.0) Serum Glucose 101 mg/dL (74-106) Calcium Level 9.0 mg/dL (8.7-10.4) Total Bilirubin 0.2 mg/dL (0.2-1.0) Aspartate Amino Transferase (AST) 15 U/L (<34) Alanine Aminotransferase (ALT) 11 U/L (7-40) Alkaline Phosphatase 88 U/L (46-116) Total Protein 7.7 g/dL (5.7-8.2) Albumin 4.5 g/dL (3.2-4.8) Troponin I High Sensitivity 5 ng/L (</=54) Phenytoin (Dilantin) Level 2.2 ug/mL (10-20) Test 08/30/24 19:25 08/30/24 18:53 Prothrombin Time 11.8 sec (9.3-11.8) Prothrombin Time INR 1.13 (0.9-1.15) B-Type Natriuretic Peptide 21.86 pg/mL (0-100) Urine Color Yellow (Yellow) Urine Clarity Clear (Clear) Urine pH 5.5 (5.0-9.0) Urine Specific [place] 1.025 (1.001-1.035) Urine Protein 1+ (Negative) Urine Ketones Trace (Negative) Urine Blood Negative /uL (Negative) Urine Nitrite Negative (Negative) Urine Bilirubin Negative (Negative) Urine Urobilinogen 2 mg/dL (Negative) Urine Leukocyte Esterase Negative /uL (Negative) Urine RBC 4 /hpf (0 - 3) Urine Microscopic WBC 2 /HPF (0-3) Urine Squamous Epithelial Cells Few /hpf (<5) Urine Bacteria None seen /hpf (None Seen) Urine Hyaline Casts Mod /lpf (0 - 2) Urine Mucus Few (None Seen) Urine Glucose 2+ mg/dL (Normal) Other Laboratory Tests 08/31/24 03:48 Final Diagnosis/Problems List seizure Discharge Disposition: Home Discharge Instruct/Medications Diet: Cardiac 2g Na,low cholest Activity: No Restrictions, As Tolerated Follow Up/Referral: PCP 1-2 weeks Neurologist per schedule. Medications: resume home meds. Discharge Statement: "Patient was advised to return to the ER or call 911 if any headaches, dizziness, shortness of breath, chest pain, abdominal pain, bleeding, fevers, or worsening of medical condition. Patient was counseled about treatment plan, medications, possible side effects, patientverbalized understanding. All questions were answered to the best of my ability. This discharge took greater then 30 minutes in planning, reviewing documentation, counseling the patient, and discussing with other team members." ASSESSMENT ASSESSMENT Assessment seizure CAROLINE DURAN MD Sep 02, 2024 14:41
[2024-09-02 16:20] VITALS: BP 126/82; PULSE 64; RESP 17; TEMP 97.6; O2SAT 100
[2024-09-02] MEDS ORDERED: QUEtiapine FUMARATE 100 MG TAB PO SCH (22:00)
== END 2024-09-02 18:36 | disposition home or self-care (01) | DRG 101 ==
LOC: EDBD 18:19 → ER 18:24 → OVERFLOW 22:02 → TELE-WESTW 08-31 22:51
PROVIDERS: ADMIT Internal Medicine; ATTEND Internal Medicine
DX: G40.409 Other generalized epilepsy and epileptic syndromes, not intractable, without status epilepticus (principal); I13.0 Hypertensive heart and chronic kidney disease with heart failure and stage 1 through stage 4 chronic kidney disease, or unspecified chronic kidney disease; N17.9 Acute kidney failure, unspecified; E86.0 Dehydration; E11.649 Type 2 diabetes mellitus with hypoglycemia without coma; D57.1 Sickle-cell disease without crisis; E11.22 Type 2 diabetes mellitus with diabetic chronic kidney disease; E78.5 Hyperlipidemia, unspecified; R55 Syncope and collapse; F17.210 Nicotine dependence, cigarettes, uncomplicated; F20.9 Schizophrenia, unspecified; I25.10 Atherosclerotic heart disease of native coronary artery without angina pectoris; I25.2 Old myocardial infarction; I50.9 Heart failure, unspecified; J44.9 Chronic obstructive pulmonary disease, unspecified; N18.9 Chronic kidney disease, unspecified; S09.8XXA Other specified injuries of head, initial encounter; Z91.041 Radiographic dye allergy status; Z88.6 Allergy status to analgesic agent; Z86.73 Personal history of transient ischemic attack (TIA), and cerebral infarction without residual deficits; Z86.711 Personal history of pulmonary embolism; Z83.3 Family history of diabetes mellitus; Z82.5 Family history of asthma and other chronic lower respiratory diseases; Z82.49 Family history of ischemic heart disease and other diseases of the circulatory system; Z79.899 Other long term (current) drug therapy; Z79.01 Long term (current) use of anticoagulants; X58.XXXA Exposure to other specified factors, initial encounter; Y93.89 Activity, other specified; Y92.89 Other specified places as the place of occurrence of the external cause; Y99.8 Other external cause status
CPT/HCPCS: 36415; 70450; 80053; 80185; 80307; 81001; 82962; 83880; 84484; 85025; 85610; 87081; 94640; 95819; G0378; J1815; J1885; J2405